=== PATIENT | female | born 1965 | race Caucasian/White ===

== ENCOUNTER → 2017-09-20 16:07 | Outpatient (REF) | payer BC, SELFPAY ==
[2017-09-20 19:59] LABS: TSH (W/Ref FT4) 0.45 uIU/mL (0.358-3.74)
== END ==
LOC: NCHCN 16:07
PROVIDERS: PCP Nurse Practitioner Family; Visit Provider Nurse Practitioner
DX: E03.9 Hypothyroidism, unspecified (principal)
CPT/HCPCS: 84443

== ENCOUNTER 2018-03-18 12:01 | Emergency (ER) | payer BC, SELFPAY ==
[2018-03-18 12:30] VITALS: PULSE 75; RESP 22; TEMP 36.2; O2SAT 100
[2018-03-18 12:48] VITALS: PULSE 64; O2SAT 100
[2018-03-18] MEDS: Lactated Ringers 1,000 ML 1000 ML IV (13:40)
[2018-03-18] MEDS: HYDROmorphone 2 MG/ML VIAL 1 MG IVP (13:47)
[2018-03-18] MEDS: Ketorolac 15 MG/ML VIAL IVP (13:47)
--- NOTE | 2018-03-18 15:42 | DI.RAD_ITS ---
SYMPTOM/DIAGNOSIS: ATRAUMATIC BACK PAIN LUMBAR SPINE: There is no evidence of fracture, spondylolysis or spondylolisthesis. The disc spaces are well maintained. There are mild degenerative changes of the discs. Facet joint degenerative changes are also seen. IMPRESSION: Mild degenerative changes. No acute abnormality.
--- NOTE | 2018-03-18 16:16 | ED.GENADUL_ITS ---
Discharge Plan Disposition Patient Disposition: HOME Condition: Improving Discharge Details Chief Complaint: Nk/Back Pain Clinical Impression: Low back pain Primary Care Provider: Carissa Tatum ED Provider: Merlin Enriquez Home Meds and New Rx's Prescriptions: New hydromorphone 2 mg tablet 2 - 4 mg PO Q4H PRN (Reason: back pain) Qty: 10 RF: 0 No Action metoprolol succinate 50 MG tablet extended release 24 hr 50 mg PO BID RF: 0 levothyroxine [Synthroid] 112 MCG tablet 112 mcg PO DAILY RF: 0 ibuprofen 600 MG tablet 600 mg PO Q6H PRN (Reason: Pain) Qty: 20 RF: 0 vitamin [id number] acid 500-400 mcg Tablet PO DAILY RF: 0 Discharge Instructions Instructions: Low Back Strain (ED) Additional Instructions: 1. Drink plenty of fluids. 2. Continue all medications as prescribed. 3. Acetaminophen 1000mg every 4 hours (up to 5 time a day) and/or ibuprofen 600mg every 6 hours as needed for fever or pain. Hydromorphone 2-4 mg every 4 hours as needed for pain not responding to above medications. 4. Activity as tolerated. Return to the Emergency Department (ED) if your condition worsens, does not improve as expected, or for ANY other concerns. Specifically, return if you have new or uncontrolled pain, worsening fever, difficulty breathing, vomiting, or are unable to drink fluids. Referrals: Carissa Tatum [Primary Care Provider] - Discharge Data Discharge Date/Time-TO BE ENTERED AT DEPARTURE: 03/18/18 16:57 Medical Decision Making 52-year-old woman with a history of hypothyroidism and pernicious anemia who presents with severe low back pain associated with a popping sensation while shoveling snow. Initially had bilateral lower extremity paresthesias at onset which have now resolved. Minimal discomfort while lying at rest with significant worsening of pain with positional change. Nonfocal exam including no significant posterior lumbar tenderness and no abdominal tenderness on multip le re-evaluations. Normal peripheral neurovacular exam with a negative straight leg raise. Plain lumbar x-ray negative. Clinically improved after receiving IV hydromorphone and IV ketorolac. Discussed likely musculoskeletal etiology of symptoms and discharged home with a plan for regular analgesia, activity as tolerated, and outpatient follow-up as needed. Given usual and customary return instructions prior to discharge. Differential Diagnosis AAA, cauda equina syndrome, retroperitoneal hemorrhage Medical Records Medical records reviewed: Yes I reviewed the patient's medical records. Imaging Data Radiologic Study: Attestation: I personally reviewed and interpreted this imaging study as follows: Imaging: X-Ray (Lumbar) My impression: No acute musculoskeletal injury or bony lesions. Term independently and contemporaneously by myself. Radiologist's impression: No acute findings. HPI General Mode of arrival: ambulatory . Date/Time Provider Initiated Documentation: 03/18/18 12:31 . Limitations to Documentation: no limitations . Information obtained by: patient and old records reviewed . HPI Narrative: 52-year-old woman with a history of hypothyroidism, pernicious anemia, and palpitations. Presents for evaluation of acute lower back pain. Ms. arriaza describes having a popping sensation while shoveling snow and having immediate pain in her lower lumbar back. Associated symptoms included bilateral lower ext remity tingling. She denies any history of previous lower back pain or recent trauma. On arrival, she is in significant discomfort noting that her pain worsens with positional change. She denies fever/chills, dyspnea, chest pain, palpitations, abdominal pain. She has had no recent change in bowel or bladder habits Related Data Home Medications Medication Instructions Recorded Confirmed levothyroxine [Synthroid] 112 mcg PO DAILY tab-cap 01/03/14 03/18/18 metoprolol succinate 50 mg PO BID 01/03/14 03/18/18 ibuprofen 600 mg PO Q6H PRN #20 tablet 05/12/17 03/18/18 hydromorphone 2 - 4 mg PO Q4H PRN #10 tab 03/18/18 vitamin [id number] acid mg PO DAILY 03/18/18 Previous Rx's Medication Instructions Recorded ibuprofen 600 mg PO Q6H PRN #20 tablet 05/12/17 hydromorphone 2 - 4 mg PO Q4H PRN #10 tab 03/18/18 Allergies Allergy/AdvReac Type Severity Reaction Status Date / Time basil AdvReac Severe gi Unverified 03/18/18 12:43 hydromorphone [From Dilaudid] AdvReac Intermediate anxiety/cri Unverified 03/18/18 13:55 es General Stated Complaint: Nk/Back Pain NANDINI: 3 Review of Systems Review of Systems All systems reviewed & are unremarkable except as noted in HPI and below Constitutional Denies chills, Denies fever(s), Denies headache(s) and Denies weakness Eyes Denies blurry vision ENT Denies headache(s), Denies sore throat and Denies throat swelling Cardiovascular Denies chest pain, Denies palpitations and Denies dyspnea Respiratory Denies dyspnea Gastrointestinal Denies abdominal pain, Denies melena, Denies hematochezia and Denies change in bowel habits Genitourinary Denies urinary frequency and Denies flank pain Musculoskeletal Reports back pain (Mid low lumbar. Pain worsened by positional change), Denies numbness and Reports tingling (Transient bilateral lower extremity, now resolved) Integumentary/Breasts Denies rash Neurologic Denies confusion, Denies headache(s), Denies focal weakness, Denies numbness, Reports tingling (Transient bilateral lower extremity, now resolved) and Denies weakness Psychiatric Denies confusion Endocrine Denies palpitations Hematologic/Lymphatic Denies easy bleeding and Denies easy bruising Allergic/Immunologic Denies throat swelling PFSH Medical History Hypothyroid Palpitations Pernicious anemia Surgical History Arthroplasty of knee section Social History Smoking/Tobacco Use Status: Former Tobacco Use Exam Narrative Exam Narrative: Nursing note and vital signs have been reviewed and noted. GENERAL: alert, active, no acute distress, well -hydrated, well-nourished HEENT: atraumatic/normocephalic, PERRLA, EOMI, conjunctiva clear, external ears/canals normal, nasal mucosa normal NECK: supple, full range of motion, no mass, normal lymphadenopathy, no thyromegaly CARDIOVASCULAR: RRR, no murmurs, nl pulses, no edema PULMONARY: nl effort, no audible wheezing or stridor, nl breath sounds with no focal deficit. no chest wall tenderness ABDOMEN: soft, non-tender, non-distended, no mass, no organomegaly EXTREMITY: No lower back tenderness (pain not reproducible) ; normal muscle tone, all joints with FROM, no deformity or tenderness NUERO: gross motor exam normal, negative SLR; PSYCH: alert and oriented, Course Vital Signs Temperature 97.2 F L 03/18/18 12:30 Pulse 75 03/18/18 12:30 Respiratory Rate 22 03/18/18 12:30 Pulse Oximetry 100 03/18/18 12:30 Temperature 97.2 F L 03/18/18 12:30 Temperature Source Temporal Artery Scan 03/18/18 12:30 Pulse 64 03/18/18 12:48 Respiratory Rate 22 03/18/18 12:30 Pulse Oximetry 100 03/18/18 12:48 Oxygen Delivery Method Room Air 03/18/18 12:48 Oxygen Flow Rate 0 03/18/18 12:48 Pain Level 6 03/18/18 13:47
--- NOTE | 2018-03-18 16:21 | DI.VRAD_ITS ---
EXAM: XR Lumbar Spine, 4 or 5 Views EXAM DATE/TIME: 03/18/2018 2:44 PM CLINICAL HISTORY: 52 years old, female; Pain; Low back pain; Patient HX: Atraumatic back pain. Shoveling TECHNIQUE: XR of the lumbar spine, 4 or 5 views. COMPARISON: No relevant prior studies available. FINDINGS: Vertebrae: Normal. No acute fracture. Normal alignment. Soft tissues: Normal. IMPRESSION: Unremarkable radiograph. Dictated and Authenticated by: Robert Mittal MD. Ordering:CRUZ Boyer MD
[2018-03-18] MEDS: HYDROmorphone 2 MG TAB PO (16:40)
[2018-03-18 16:46] VITALS: BP 116/68; PULSE 63; RESP 14; TEMP 36.6; O2SAT 100
[2018-03-18 16:48] VITALS: BP 116/68; PULSE 63; RESP 14; TEMP 36.6; O2SAT 100
== END 2018-03-18 16:57 | disposition home or self-care (01) ==
PROVIDERS: Emergency Provider Emergency Medicine; PCP Nurse Practitioner Family
DX: M54.5 Low back pain (principal)
CPT/HCPCS: 96361; 96374; 96375; 99284; 72110; J1885

== ENCOUNTER 2018-11-27 18:43 | Outpatient (REF) | payer BC, SELFPAY ==
[2018-11-27 20:32] LABS: TSH (W/Ref FT4) 3.99 uIU/mL (0.36-3.74)
[2018-11-27 21:29] LABS: FREE T4 0.95 ng/dL (0.76-1.46)
[2018-11-28 00:29] LABS: Vitamin B12 425 pg/mL (193-986)
== END 2018-11-27 19:03 ==
LOC: NCHCN 18:43
PROVIDERS: PCP Nurse Practitioner Family; Visit Provider Nurse Practitioner
DX: D51.0 Vitamin B12 deficiency anemia due to intrinsic factor deficiency (principal); E03.9 Hypothyroidism, unspecified
CPT/HCPCS: 82607; 84439; 84443

== ENCOUNTER 2019-03-04 16:30 | Outpatient (REF) | payer BC, SELFPAY ==
--- NOTE | 2019-03-04 16:10 | PAPFT_PTH ---
PATIENT: Tasneem Galeana LOC: [facility]#:[id number] AGE/SX: 53/F ROOM: RE03/04/[address]: Katie Tong : 1965 BED: DIS: 03/04/2019 SPEC #: [id number] RECD: 03/04/19 18:15 STATUS: GAYATHRI RERandall #: [id number] KEVIN: 03/04/19 16:[address]: Katie Tong DEPT: COUNT INCLUDES THE [facility] Cytology RECD BY: Rowan Laura Tissues: 1 - CX/ENDOCX FOR PAP SMEARS Procedures: PAP THIN PREP/UVM Screening HPV DNA PROBE Comments: [id number]
[2019-03-04 19:34] LABS: Vitamin D 25 Total 26.5 ng/ml (30-100)
[2019-03-04 19:35] LABS: ALT 21 U/L (14-59); AST 16 U/L (15-37); Albumin 3.8 g/dL (3.4-5.0); Alkaline Phosphatase 69 U/L (46-116); Anion Gap 5.7 mmol/L (3-11); BUN 13 mg/dL (7-18); Bilirubin, Total 0.3 mg/dL (0.2-1.0); CO2 32.3 mmol/L (21.0-32.0); CREATININE 0.75 mg/dL (0.55-1.02); Calcium 8.8 mg/dL (8.5-10.1); Chloride 106 mmol/L (98-107); Glucose 80 mg/dL (74-106); Potassium 3.5 mmol/L (3.5-5.1); Sodium 144 mmol/L (136-145); TSH (W/Ref FT4) 1.64 uIU/mL (0.36-3.74); Total Protein 7.1 g/dL (6.4-8.2); Vitamin B12 452 pg/mL (193-986)
== END 2019-03-04 16:50 ==
LOC: NCHCN 16:30
PROVIDERS: PCP Nurse Practitioner; Visit Provider Nurse Practitioner
DX: D51.0 Vitamin B12 deficiency anemia due to intrinsic factor deficiency (principal); E03.9 Hypothyroidism, unspecified; E55.9 Vitamin D deficiency, unspecified; Z00.00 Encounter for general adult medical examination without abnormal findings; Z12.4 Encounter for screening for malignant neoplasm of cervix; Z11.51 Encounter for screening for human papillomavirus (HPV)
CPT/HCPCS: 80053; 82306; 88142; 82607; 84443; 87624

== ENCOUNTER 2019-03-25 14:08 | Outpatient (CLI) | payer BC, SELFPAY ==
--- NOTE | 2019-03-25 15:44 | DI.CT_ITS ---
EXAM: CT ABDOMEN AND PELVIS W CLINICAL HISTORY: RLQ ABD PAIN, R10.31, ONE WEEK OF WORSENING RLQ TECHNIQUE: Post IV and oral contrast. COMPARISON: No exams were available for comparison FINDINGS: The heart size is normal. The lung bases are clear. The liver, spleen, gallbladder, pancreas, adren als and kidneys as well as urinary bladder appear normal. The uterus and ovaries are unremarkable. The appendix appears normal. A moderate quantity of stool. There is no small bowel dilatation or wa ll thickening. The aorta is normal in diameter. No adenopathy or ascites is seen. There is a minim al amount of fat at the umbilicus. There is no fluid or stranding in the fat. No bony abnormalities are seen. IMPRESSION: Minimal fat at the umbilicus. No acute abnormality is seen.
[2019-03-25] MEDS: Omnipaque 350 MG/ML 100 ML BTL IV (15:51)
[2019-03-25] MEDS: Breeza Beverage 473 ML BTL PO ×2 (15:51→15:52)
[2019-03-25] MEDS: Omnipaque 350 MG/ML 50 ML BTL PO (15:52)
== END 2019-03-25 14:28 ==
PROVIDERS: PCP Nurse Practitioner; Visit Provider Family Medicine
DX: R10.31 Right lower quadrant pain (principal)
CPT/HCPCS: 74177; J3490; Q9967

== ENCOUNTER 2019-04-23 00:48 | Outpatient (CLI) | payer BC, SELFPAY ==
--- NOTE | 2019-04-23 | DI.MAMMO_ITS ---
EXAM: MAMMO SCREENING CLINICAL HISTORY: SCREENING, Z12.39 TECHNIQUE: Mammograms were interpreted according to the usual protocol including computer analysis w [employer] CAD system, tomosynthesis and C-view imaging. COMPARISON: 2009 to 2016 FINDINGS: The breasts are composed of scattered fibroglandular densities, Breast Density category B. No suspicious masses or suspicious microcalcifications are seen. No skin thickening or abnormal axillary lymph nodes are seen. There has been no significant change from prior exams. IMPRESSION: BI-RADS Category 1 - Negative Breast Density - Category B - Scattered areas of fibroglandular density
== END 2019-04-23 01:08 ==
PROVIDERS: PCP Nurse Practitioner; Visit Provider Nurse Practitioner
DX: Z12.31 Encounter for screening mammogram for malignant neoplasm of breast (principal)
CPT/HCPCS: 77063; 77067

== ENCOUNTER 2019-12-09 11:18 | Outpatient (REF) | payer BC, SELFPAY ==
[2019-12-09 18:28] LABS: HCT 33.1 % (36.0-46.0); HGB 11.1 g/dL (11.2-15.7); MCH 30.7 pg (27.0-33.0); MCHC 33.5 % (32.0-36.0); MCV 91.7 fL (80-95); MPV 9.9 fL (8.0-11.0); Platelet Count 187 10^3/uL (130-400); RBC 3.61 10^6/uL (3.93-5.22); RDW 11.9 % (11.7-14.6); RDW-SD 40.5 fL; WBC 4.04 10^3/uL (4.4-10.8)
[2019-12-09 18:46] LABS: ALT 19 U/L (14-59); AST 19 U/L (15-37); Albumin 3.5 g/dL (3.4-5.0); Alkaline Phosphatase 75 U/L (46-116); Anion Gap 5.4 mmol/L (3-11); BUN 13 mg/dL (7-18); Bilirubin, Total 0.4 mg/dL (0.2-1.0); CO2 28.6 mmol/L (21.0-32.0); CREATININE 0.81 mg/dL (0.55-1.02); Chloride 104 mmol/L (98-107); Glucose 96 mg/dL (74-106); Potassium 4.7 mmol/L (3.5-5.1); Sodium 138 mmol/L (136-145); TSH (W/Ref FT4) 0.57 uIU/mL (0.36-3.74); Total Protein 6.5 g/dL (6.4-8.2)
== END 2019-12-09 11:38 ==
LOC: NCHCN 11:18
PROVIDERS: PCP Nurse Practitioner; Visit Provider Nurse Practitioner
DX: R55 Syncope and collapse (principal); D51.0 Vitamin B12 deficiency anemia due to intrinsic factor deficiency
CPT/HCPCS: 80053; 85027; 84443

== ENCOUNTER 2019-12-10 16:39 | Outpatient (REF) | payer BC, SELFPAY ==
[2019-12-10 18:24] LABS: Iron 43 ug/dL (50-170); Total Iron Binding Capacity 376 ug/dL (250-450); Transferrin Sat 11 % (15-50)
[2019-12-10 18:52] LABS: Ferritin 9 ng/mL (8-252); Vitamin B12 530 pg/mL (193-986)
== END 2019-12-10 16:59 ==
LOC: NCHCN 16:39
PROVIDERS: PCP Nurse Practitioner; Visit Provider Nurse Practitioner
DX: D51.0 Vitamin B12 deficiency anemia due to intrinsic factor deficiency (principal)
CPT/HCPCS: 82607; 82728; 83540; 83550

== ENCOUNTER 2019-12-12 01:02 | Outpatient (CLI) | payer BC, SELFPAY ==
--- NOTE | 2019-12-12 09:00 | ETT_ITS ---
APPROVED REPORT Exam: Exercise Treadmill Patient Location: Out-Patient Room/Bed: Stress Nurse: Maliha Lima RN BMI: 23.77 Baseline Rhythm: Sinus Rhythm Indications: Lightheaded near fainting spells with strenuous activity. Patient also feeling more fa tigued and SOB with increased activity. Medical History Medical History: Palpitations Cardiac Medications: Metoprolol tartrate Allergies: NKDA Cardiac Risk Factors: FHX of CAD Previous Cardiac Procedures: None Pretest Chest Pain Characteristics: No chest pain Exercise History: Physically active Physical Disabilities: None. Lung Sounds: Clear to auscultation Heart Sounds: Irregular Stress Test Details Test: Exercise stress testing was performed using a Rusty protocol. Rest Stress HR Resting HR Supine: 61 bpm Max Heart Rate (APMHR): 164 bpm Resting HR Standin bpm Target HR (85% APMHR): 139 bpm Max HR Achieved: 167 bpm % of APMHR: 101 Recovery HR: 87 bpm HR response to stress: Normal HR response to stress BP Resting BP Supine: 118/80 mmHg Resting BP Standin/72 mmHg Max BP: 140/92 mmHg Recovery BP: 110/76 mmHg BP response to stress: Normal blood pressure response to stress. ECG Resting ECG: Sinus Rhythm Ectopy: None. Stress ECG: Sinus Tachycardia ST Change: Upsloping ST depression Lead(s): II, III, aVF, V3, V4, V5, V6 Maximum ST Deviation: 1 mm Arrhythmia: None Recovery ECG: Sinus Rhythm Recovery ST Change: Horizontal ST depression, returning to baseline by 5 minute recovery Lead(s): II, III, aVF, V3, V4, V5, V6 Recovery ST Deviation: 1 mm Recovery Arrhythmia: None Clinical Reason for Termination: Fatigue, Dyspnea Stress Symptoms: Dizziness, increasing with immediate cessation of exercise and resolving with rest Exercise duration: 9 min51 sec Highest Stage Reached: Stage 4: 4.2 mph at 16% grade. Exercise capacity: 11.57 METs Stress ECG Conclusion 1. Resting electrocardiogram was normal 2. Patient exercised on the Rusty protocol and completed a workload of 11.57 METS 3. Normal heart rate and blood pressure response to exercise. The patient achieved 100% of predicted heart rate for age 4. Patient described lightheadedness at end exercise relieved with rest 5. Electrocardiographically there was J-point depression and upsloping ST segments at peak exercise, equivocal for myocardial ischemia 6. There were no dysrhythmia 7. Suggest repeat with imaging if there is strong clinical suspicion of underlying coronary artery di sease 8. Ornelas treadmill score is 7,low risk Stress Test Summary STAGE Time (mins) Speed (mph) Grade (%) HR BP SYMPTOMS METS Supine 61 118/80 Standing 76 98/72 1 3 1.7 10 122 130/82 4.6 2 6 2.5 12 135 130/80 7 3 9 3.4 14 156 lightheaded 10.2 1 min recovery 130 140/92 increased lightheadedness 3 min recovery 91 122/82 symtoms resolved 6 min recovery 87 110/76
== END 2019-12-12 01:22 ==
PROVIDERS: PCP Nurse Practitioner; Visit Provider Nurse Practitioner
DX: R42 Dizziness and giddiness (principal); R06.02 Shortness of breath; R53.83 Other fatigue; Z82.49 Family history of ischemic heart disease and other diseases of the circulatory system
CPT/HCPCS: 93017

== ENCOUNTER 2020-01-21 00:36 | Outpatient (CLI) | payer BC, SELFPAY ==
--- NOTE | 2020-01-21 07:45 | DI.NM_ITS ---
APPROVED REPORT Exam: Exercise Treadmill Patient Location: Out-Patient Room/Bed: Stress Nurse: Maliha Lima RN BMI: 24.68 Baseline Rhythm: Sinus Rhythm Indications: Syncope. Medical History Medical History: Pernicious anemia, Palpitations. Cardiac Medications: Metoprolol succinate, Aspirin, Atorvastatin. Allergies: Hydromorphone. Cardiac Risk Factors: FHX of CAD Previous Cardiac Procedures: None. Pretest Chest Pain Characteristics: None. Exercise History: Physically active Physical Disabilities: None. Lung Sounds: Clear to auscultation Heart Sounds: Regular Stress Test Details Test: Exercise stress testing was performed using a Rusty protocol. Nuclear Acquisition: Rest Tc-99m/Stress Tc-99m 1 day Rest Isotope: Tc-99m Sestamibi. Dose: 10.9 Date: 01/21/2020 Injection Time: 1045 Stress Isotope: Tc-99m Sestamibi. Dose: 31.5 Date: 01/21/2020 Injection Time: 1220 HR Resting HR Supine: 62 bpm Max Heart Rate (APMHR): 164 bpm Resting HR Standin bpm Target HR (85% APMHR): 139 bpm Max HR Achieved: 171 bpm % of APMHR: 104 Recovery HR: 89 bpm HR response to stress: Normal HR response to stress BP Resting BP Supine: 126/78 mmHg Resting BP Standin/80 mmHg Max BP: 160/80 mmHg Recovery BP: 126/80 mmHg BP response to stress: Normal blood pressure response to stress. ECG Resting ECG: Sinus Rhythm Ectopy: None. Stress ECG: Sinus Tachycardia ST Change: Upsloping ST depression Lead(s): II, III, aVF, V3, V4, V5 Maximum ST Deviation: 1 mm Arrhythmia: None Recovery ECG: Sinus Rhythm Recovery ST Change: Upsloping ST depression Lead(s): II, III, aVF, V3, V4, V5 Recovery ST Deviation: 1 mm Recovery Arrhythmia: None Clinical Reason for Termination: Fatigue Stress Symptoms: General Fatigue Exercise duration: 10 min33 sec Highest Stage Reached: Stage 4: 4.2 mph at 16% grade. Exercise capacity: 12.7 METs Stress ECG Conclusion 1. Patient exercised for a total of 10 minutes and 30 seconds (13 METS). The patient no symptoms sug gestive of ischemia. 2. Patient had no significant ST changes concerning for ischemia. Stress Test Summary STAGE Time (mins) Speed (mph) Grade (%) HR BP SYMPTOMS METS Supine 62 126/78 Standing 76 122/80 1 3 1.7 10 121 130/74 4.6 2 6 2.5 12 138 142/76 7 3 9 3.4 14 156 154/76 10.2 1 min recovery 135 160/80 3 min recovery 96 148/76 6 min recovery 89 126/80 MPI Conclusion The patient's ejection fraction was 61% with stress. There were no wall motion abnormalities. The patient no evidence of ischemia on the imaging portion exam. This represents a normal SPECT stress test. Radiologist Interpretation Radiologist agrees with Software Licensing Analyst's Interpretation. Radiologist Interpretation by: Marquis Jaimes MD Interpretation Date/Time: 01/21/2020 14:09:14
== END 2020-01-21 00:56 ==
PROVIDERS: PCP Nurse Practitioner; Visit Provider Internal Medicine Cardiovascular Disease
DX: R55 Syncope and collapse (principal); Z82.49 Family history of ischemic heart disease and other diseases of the circulatory system
CPT/HCPCS: 78452; 93017

== ENCOUNTER 2020-01-21 04:42 | Outpatient (CLI) | payer BC, SELFPAY ==
--- NOTE | 2020-01-26 20:00 | RESPIRATORY ---
01/26/201999- Dr Chapa was paged and report given for Cardiac Event triggered by Pt . Which showed Sinus Rhythm, 2nd Degree AVB Type 2. Pt symptom reported on monitor Flutter,, skipped beat;Light headedness.
--- NOTE | 2020-02-27 10:31 | W.CARDEVENT ---
Date of service: 02/27/20 Time of Service: 10:31 Cardiac Event Recorder Referring Provider:: sena Indications:: syncope Cardiac Event Note: This was a 30-day event monitor. Predominant rhythm was sinus. Average heart rate was 77. Minimum heart rate was 57 and maximum 111. There was a period of 2-1 AV block, heart rate 40 associated with lightheadedness at 4:50 PM on day 4
== END 2020-01-21 05:02 ==
PROVIDERS: PCP Nurse Practitioner; Visit Provider Internal Medicine Cardiovascular Disease
CPT/HCPCS: 93270

== ENCOUNTER 2020-01-26 21:07 | Emergency (ER) | payer BC, SELFPAY ==
[2020-01-26] VITALS (7 sets, daily range): BP systolic 108–143; BP diastolic 65–79; PULSE 68–78; RESP 15–19; TEMP 36.4; O2SAT 97–100
--- NOTE | 2020-01-26 21:00 | RT.EKG_ITS ---
APPROVED REPORT Exam: Resting ECG Patient Location: E HR:69 bpm ECG Measurements Heart Rate 69 AXIS WY 136 P 59 QRSd 90 QRS 20 QT 408 T 24 QTc 438 Conclusion Sinus rhythm...normal P axis, V-rate 60- 99 Nonspecific repolarization abnormalities...ST dep, T neg, 2-3 leads
--- NOTE | 2020-01-26 21:38 | ED.GENADUL_ITS ---
Discharge Plan Disposition Patient Disposition: [facility] Condition: Serious Discharge Details Chief Complaint: Chest Pain Clinical Impression: Mobitz type 2 second degree heart block Primary Care Provider: Katie Tong ED Provider: Clayton Sanders Home Meds and New Rx's Prescriptions: No Action metoprolol succinate 50 MG tablet extended release 24 hr 50 mg PO BID RF: 0 levothyroxine [Synthroid] 112 MCG tablet 112 mcg PO DAILY RF: 0 aspirin [Adult Aspirin Regimen] 81 mg tablet,delayed release (DR/EC) 81 mg PO DAILY RF: 0 atorvastatin 10 mg tablet 10 mg PO DAILY RF: 0 cyanocobalamin (vitamin B-12) 1,000 mcg/mL kit 100 mcg subcut QMONTH RF: 0 ibuprofen 600 MG tablet 600 mg PO Q6H PRN (Reason: Pain) Qty: 20 RF: 0 vitamin G20-ivlou acid 500-400 mcg Tablet PO DAILY RF: 0 Medical Decision Making 54-year-old female presents today after receiving a phone call that she had a equipment monitor phototypesetting event on Monday. She reports that she is currently anxious because of that but otherwise asymptomatic. Clinically she appears well, nontoxic, is hemodynamically stable. Will obtain EKG now, fax her recent stress test and cardiac event monitoring to [facility] and request consultation with cardiology. It appears as though she had a second-degree A-V type II block recorded on 01-24-2020 at 4:50 PM. She was symptomatic at that time. Her stress MACHINE ATTENDANT MPI rest and stress test gpr performed on 01-21-20 reveals the patient has no symptoms suggest of ischemia. Patient has no significant ST changes concerning for ischemia. The patient's ejection fraction was 61% with stress. There were no wall abnormalities. Patient had no evidence of ischemia on the imaging portion of the exam. Normal test I was able to speak with cardiology at [facility], Dr. King. We discussed the patient's EKG tonight, recent stress test and cardiac event monitoring. She is currently asymptomatic. He believes transferring to his facility into the care of Dr. Shaikh is appropriate. Plan is to place a pacemaker. He does not request any laboratory values or imaging be obtained here, they will complete their work-up when she arrives at their facility. Plan discussed with patient, she is comfortable this plan and has no additional questions or concerns Medical Records Medical records reviewed: Yes I reviewed the patient's medical records. ECG Data Attestation: I personally reviewed and interpreted this ECG (s) as follows: Interpretation: Please see official report by Dr. Mark. Sinus rhythm, normal axis. Ventricular rate of 69. Nonspecific repolarization abnormalities. No acute ST elevation. HPI General Mode of arrival: ambulatory . Date/Time Provider Initiated Documentation: 01/26/20 21:08 . Limitations to Documentation: no limitations . Information obtained by: patient . HPI Narrative: This is a 54-year-old female, past medical history of hypothyroidism, palpitations, pernicious anemia, presenting to the ER per her primary care office. She states that she received a phone call just prior to arrival stating that her equipment monitor phototypesetting was abnormal and to get admitted to our facility. Patient states that she has been on metoprolol for PVCs for nearly 15 years, no change in that medication. She reports that her thyroid disease is well maintained and she had her blood drawn recently, levels were normal. She has been feeling a Kerplunk in her chest followed by feeling lightheaded like she might pass out for 5-6 months. She would say this is probably happened nearly a dozen times. Subsequently she been seen by cardiology, had a work-up, including stress test last week and a 30-day equipment monitor phototypesetting. She was told that the event happened on Monday, she is aware that she was symptomatic when the event supposedly happened on her equipment monitor phototypesetting. She states that she feels slightly anxious having received a phone call for her to come directly to the ER but is otherwise asymptomatic. Denies recent illness or trauma. Denies headache, fever, chest pain, shortness of breath recent travel Related Data Home Medications Medication Instructions Recorded Confirmed levothyroxine [Synthroid] 112 mcg PO DAILY tab-cap 01/03/14 01/08/20 metoprolol succinate 50 mg PO BID 01/03/14 01/08/20 ibuprofen 600 mg PO Q6H PRN #20 tab 05/12/17 01/08/20 vitamin Y41-vauze acid mg PO DAILY 03/18/18 01/08/20 aspirin 81 mg tablet,delayed 81 mg PO DAILY 12/26/19 01/08/20 release atorvastatin 10 mg tablet 10 mg PO DAILY 12/26/19 01/08/20 cyanocobalamin (vitamin B-12) 100 mcg SUBCUT QMONTH 12/26/19 01/08/20 1,000 mcg/mL injection kit Previous Rx's Medication Instructions Recorded ibuprofen 600 mg PO Q6H PRN #20 tab 05/12/17 Allergies Allergy/AdvReac Type Severity Reaction Status Date / Time basil AdvReac Severe Nausea Unverified 01/26/20 21:18 hydromorphone [From Dilaudid] AdvReac Intermediate anxiety/cri Unverified 01/26/20 21:18 es General Stated Complaint: Chest Pain NANDINI: 2 Review of Systems Constitutional Constitutional: Denies fatigue, Denies fever(s), Denies headache(s) and Denies weakness Eyes Eyes: Denies change in vision ENT Ears, Nose, Mouth, and Throat: Denies headache(s) and Denies neck pain Cardiovascular Cardiovascular: Denies chest pain, Reports irregular heart rhythm and Denies dyspnea Respiratory Respiratory: Denies cough and Denies dyspnea Gastrointestinal Gastrointestinal: Denies abdominal pain, Denies nausea and Denies vomiting Musculoskeletal Musculoskeletal: Denies neck pain, Denies numbness and Denies tingling Integumentary/Breasts Skin/Breast: Denies rash Neurologic Neurologic: Denies headache(s), Denies numbness, Denies tingling and Denies weakness Psychiatric Psychiatric: Reports anxiety Endocrine Endocrine: Denies fatigue [facility] Medical History Hypothyroid Palpitations Normal ECHO 2004 Pernicious anemia Syncope Surgical History Arthroplasty of knee right, at [facility] 2012? section 1988 and 1991 Social History Smoking/Tobacco Use Status: Former Tobacco Use Smoking risk assessment performed?: Yes Alcohol Intake: current Alcohol Intake frequency: a few times a month Drug use: Never Substance use type: does not use Do you feel safe at home: Yes Do you feel safe in your relationship?: Yes Exam Const General: cooperative, healthy appearing, comfortable and no acute distress Orientation: alert, awake and oriented x3 HENMT Head: normal to inspection, normocephalic and atraumatic Eyes General: appearance normal, both eyes and all related structures Conjunctivae: conjunctivae normal Sclera: sclerae normal Neck Neck: normal visual inspection, full ROM, trachea midline and supple Resp Effort & Inspection: normal respiratory effort and able to speak in complete sentences Auscultation: clear to auscultation bilaterally Cardio Rate: regular rate Rhythm: regular rhythm GI Palpation: soft and nontender Back/Spine/Pelvis Back: No back tenderness Skin General skin exam: no rashes or lesions noted Neuro General: patient alert, patient awake, patient oriented x3, moves all extremities and no focal motor deficits Cognition: normal cognition Speech: speech normal Gait: normal gait Motor: muscle tone normal throughout Sensory Exam: no sensory deficits noted Extrem General: normal to inspection, full ROM, capillary refill normal, no pedal edema and no calf tenderness Psych Appearance: grossly normal Mental Status: mental status grossly normal Course Vital Signs Vital signs: Vital Signs Temperature 36.4 C L 01/26/20 21:10 Pulse 72 01/26/20 21:10 Respiratory Rate 16 01/26/20 21:10 Blood Pressure 143/79 H 01/26/20 21:10 Pulse Oximetry 99 01/26/20 21:10 Temperature 36.4 C L 01/26/20 21:10 Temperature Source Skin 01/26/20 21:10 Pulse 72 01/26/20 21:10 Respiratory Rate 16 01/26/20 21:10 Respiratory Effort Non-Labored 01/26/20 21:10 Respiratory Depth Normal 01/26/20 21:10 Respiratory Pattern Normal 01/26/20 21:10 Blood Pressure 143/79 H 01/26/20 21:10 Blood Pressure Position Supine 01/26/20 21:10 Pulse Oximetry 99 01/26/20 21:10 Oxygen Delivery Method Room Air 01/26/20 21:10 Oxygen Flow Rate 0 01/26/20 21:10 Pain Level 0 01/26/20 21:10
== END 2020-01-26 23:30 | disposition short-term general hospital (02) ==
PROVIDERS: Emergency Provider Physician Assistant; PCP Nurse Practitioner
DX: I44.1 Atrioventricular block, second degree (principal)
CPT/HCPCS: 93005; 99285; 93010

== ENCOUNTER 2020-06-17 08:33 | Outpatient (CLI) | payer BC, SELFPAY ==
--- NOTE | 2020-06-17 08:30 | RT.EKG_ITS ---
APPROVED REPORT Exam: Resting ECG Reason for Exam: Palpitations Patient Location: O HR:65 bpm ECG Measurements Heart Rate 65 AXIS NV 127 P 45 QRSd 87 QRS 3 QT 404 T 6 QTc 421 Conclusion Sinus rhythm...normal P axis, V-rate 50- 99
== END 2020-06-17 08:34 | disposition home or self-care (01) ==
LOC: DI.CARD 08:36
PROVIDERS: PCP Nurse Practitioner; Visit Provider Internal Medicine Cardiovascular Disease
DX: I44.1 Atrioventricular block, second degree (principal)
CPT/HCPCS: 93010

== ENCOUNTER 2021-01-27 10:47 | Outpatient (CLI) | payer BC, SELFPAY ==
--- NOTE | 2021-01-27 11:33 | DI.RAD_ITS ---
Exam(s) XR LUMBAR SPINE COMPLETE EXAM: XR LUMBAR SPINE COMPLETE CLINICAL HISTORY: BACK PAIN LOW, M54.50, HEARD POP AFTER LIFTING WHILE MAKING BED, NUMBNESS. TECHNIQUE: 2D digital imaging was performed. COMPARISON: CR XR lumbar spine complete from 03/18/2018 FINDINGS: There is no evidence of fracture or listhesis. No pars defects. No significant disc space narrowing . Some degenerative changes noted in the facet joints of lower 2 levels. Sacroiliac joints appear u nremarkable. IMPRESSION: No fracture. No significant radiographic change compared to March 2018. DATA REPOSITORY: RADIATION DOSE DELIVERED:
== END 2021-01-27 11:07 ==
PROVIDERS: PCP Nurse Practitioner; Visit Provider Physician Assistant Medical
DX: M54.59 Other low back pain (principal); R20.0 Anesthesia of skin
CPT/HCPCS: 72110

== ENCOUNTER 2021-04-12 13:21 | Outpatient (REF) | payer BC, SELFPAY ==
[2021-04-12 17:16] LABS: HGB 11.7 g/dL (11.2-15.7); MCH 28.7 pg (27.0-33.0); MCHC 32.5 % (32.0-36.0); MCV 88.5 fL (80-95); MPV 9.8 fL (8.0-11.0); Platelet Count 186 10^3/uL (130-400); RBC 4.07 10^6/uL (3.93-5.22); RDW 13.1 % (11.7-14.6); RDW-SD 42.1 fL; WBC 4.67 10^3/uL (4.4-10.8)
[2021-04-12 18:12] LABS: Anion Gap 6.7 mmol/L (3-11); BUN 14 mg/dL (7-18); CO2 27.3 mmol/L (21.0-32.0); CREATININE 0.8 mg/dL (0.55-1.02); Calcium 8.7 mg/dL (8.5-10.1); Chloride 104 mmol/L (98-107); Glucose 92 mg/dL (74-106); Potassium 4.6 mmol/L (3.5-5.1); Sodium 138 mmol/L (136-145); TSH (W/Ref FT4) 0.04 uIU/mL (0.36-3.74); Vitamin B12 426 pg/mL (193-986)
[2021-04-12 18:35] LABS: FREE T4 1.35 ng/dL (0.76-1.46)
== END 2021-04-12 13:22 | disposition home or self-care (01) ==
LOC: NCHCN 13:21
PROVIDERS: PCP Nurse Practitioner; Visit Provider Nurse Practitioner Family
DX: D51.0 Vitamin B12 deficiency anemia due to intrinsic factor deficiency (principal)
CPT/HCPCS: 80048; 85027; 82607; 84439; 84443

== ENCOUNTER 2021-04-14 00:51 | Outpatient (CLI) | payer BC, SELFPAY ==
--- NOTE | 2021-04-14 15:30 | DI.RAD_ITS ---
Exam(s) XR FOOT LT COMPLETE EXAM: XR FOOT LT COMPLETE CLINICAL HISTORY: PAIN IN LT FOOT, M79.672 TECHNIQUE: COMPARISON: No exams were available for comparison FINDINGS: Three views were obtained. Bony alignment appears within normal limits. There are degenerative ordonez ges at the 1st MTP joint with prominent marginal osteophytes and subchondral sclerosis as well as remington e narrowing of the cartilaginous joint space. Mild bethea articular degenerative changes seen in the re mainder of the foot. 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 RADIATION DOSE DELIVERED: Total DLP
--- NOTE | 2021-04-14 16:00 | DI.MAMMO_ITS ---
Exam(s) MAMMO SCREENING EXAM: MAMMO SCREENING CLINICAL HISTORY: SCREENING, Z12.39 TECHNIQUE: Mammograms were interpreted according to the usual protocol including computer analysis w [facility] CAD system, tomosynthesis and C-view imaging. COMPARISON: FINDINGS: The breasts are heterogeneously dense. No dominant mass or clumped microcalcification is identified in either breast. The current examination is compared with previous examinations including April and there has been no gross interval change appearance comparison previous studies. IMPRESSION: No specific evidence of malignancy at this time. Routine screening examinations are suggested at yea rly intervals in this age group according to the ACS ACR guidelines. BI-RADS Category 1 - Negative Breast Density - Category C - Heterogeneously dense
== END 2021-04-14 01:11 ==
PROVIDERS: PCP Nurse Practitioner; Visit Provider Nurse Practitioner Family
DX: Z12.31 Encounter for screening mammogram for malignant neoplasm of breast (principal); R92.8 Other abnormal and inconclusive findings on diagnostic imaging of breast; M79.672 Pain in left foot; M19.072 Primary osteoarthritis, left ankle and foot
CPT/HCPCS: 77063; 77067; 73630

== ENCOUNTER 2021-05-05 10:41 | Outpatient (CLI) | payer BC, SELFPAY ==
[2021-05-05 11:42] LABS: Source Nasal/Nares
[2021-05-05 14:25] LABS: COVID-19 PCR Negative (Negative)
== END 2021-05-05 10:42 | disposition home or self-care (01) ==
PROVIDERS: PCP Nurse Practitioner; Visit Provider Podiatrist
DX: Z20.822 Contact with and (suspected) exposure to COVID-19 (principal)
CPT/HCPCS: 87635

== ENCOUNTER 2021-05-07 07:28 | Day surgery (SDC) | payer BC, SELFPAY ==
--- NOTE | 2021-05-06 19:47 | HPE_ITS ---
Date of service: 05/06/21 Time of Service: 19:48 History of Present Illness History of Present Illness Chief Complaint: painful left bunion deformity Narrative: 55 YO female with progressive pain associated with moderate to severe hallux limitus of the left 1st MPJ. Pain is interfering with shoe gear, ambulation and daily activities. Non operative measures have failed to provide relief of symptoms. PFSH All Active Problems Syncope (Chronic) AV block, 2nd degree (Acute) Lightheadedness (Acute) Medical History Hypothyroid Pernicious anemia Syncope Surgical History Arthroplasty of knee right, at [facility] 2012? section 1988 and 1991 History of carpal tunnel surgery History of surgical removal of ganglion cyst Social History Smoking/Tobacco Use Status: Former Tobacco Use Quit Date: 02/13/83 Smoking risk assessment performed?: Yes Alcohol Intake: current Alcohol Intake frequency: a few times a week Drug use: Never Substance use type: does not use Do you feel safe at home: Yes Do you feel safe in your relationship?: Yes Meds Allergies and Home Medications Allergies Allergy/AdvReac Type Severity Reaction Status Date / Time basil AdvReac Severe Nausea Verified 05/06/21 12:18 hydromorphone [From Dilaudid] AdvReac Intermediate anxiety/cri Verified 05/06/21 12:18 es Home Medications Medication Instructions Recorded Confirmed Type levothyroxine 112 mcg tablet 112 mcg PO DAILY tab-cap 01/03/14 05/06/21 History (Synthroid) ibuprofen 600 mg tablet 600 mg PO Q6H PRN #20 tab 05/12/17 05/06/21 Rx cyanocobalamin (vitamin B-12) 100 mcg SUBCUT QMONTH 12/26/19 05/06/21 History 1,000 mcg/mL injection kit metoprolol succinate 50 mg 25 mg PO BID tab 06/17/20 05/06/21 History tablet,extended release 24 hr cholecalciferol (vitamin D3) 25 1,000 mcg PO DAILY 05/06/21 05/06/21 History mcg (1,000 unit) tablet (Vitamin D3) Exam Narrative Exam Narrative: Heaqs normo cephalic eyes PERRLA Uvula is mid line. Jaw extension is tight Hearing is adequate Heart had RRR, I detected no abnormal sounds Lung elkins are clear Abdomen is soft, BS x 4 Vascular exam: pulses are 2/4 bilaterally, cft < 3 sec to all toes. No edema, calves are soft to palpation. M/S Exam: Muslce groups are 5/5 Skeletal exam is remarkable for marked limitation in doriflexion of the 1st MPJ, left foot, with blayne articular tenderness noted on palpation. Blayne articular spurring is palpable. Neurological exam WNL
--- NOTE | 2021-05-07 06:14 | W.ANESPRE ---
General Info Date of Service Date Performed: 05/07/21 Height: 5 ft 2 in Weight: 67.585 kg Body Mass Index (BMI): 27.2 Surgical Procedure: Operation Date: 05/07/21 08:40 Proposed Procedure Side Surgeon p Cheilectomy Lt First MPJ Left Raheel Zarate DPM Meds Allergies and Home Medications Allergies Allergy/AdvReac Type Severity Reaction Status Date / Time basil AdvReac Severe Diarrhea Verified 05/07/21 08:03 hydromorphone [From Dilaudid] AdvReac Intermediate anxiety/cri Verified 05/07/21 07:48 es Home Medication Medication Instructions Recorded levothyroxine 112 mcg tablet 112 mcg PO DAILY tab-cap 01/03/14 (Synthroid) ibuprofen 600 mg tablet 600 mg PO Q6H PRN #20 tab 05/12/17 cyanocobalamin (vitamin B-12) 100 mcg SUBCUT QMONTH 12/26/19 1,000 mcg/mL injection kit metoprolol succinate 50 mg 25 mg PO BID tab 06/17/20 tablet,extended release 24 hr cholecalciferol (vitamin D3) 25 1,000 mcg PO DAILY 05/06/21 mcg (1,000 unit) tablet (Vitamin D3) Current Visit Medications: Current Medications Generic Name Dose Route Start Last Admin Trade Name Freq PRN Reason Stop Dose Admin Sodium Chloride 500 mls @ 0 mls/hr 05/07/21 06:00 Saline 500ml Bag IV PRN PRN As Directed Cefazolin Sodium/Dextrose 1 gm in 50 mls @ 100 mls/hr 05/07/21 06:00 Ancef Duplex IVPB PREOP MARLENA Ringer's Solution 1,000 mls @ 80 mls/hr 05/07/21 06:00 IV 06/05/21 23:59 INFUSION MARLENA IV Miscellaneous Supplies 1 each 05/07/21 06:00 Iv Access IV DIRECTED MARLENA IV Miscellaneous Supplies 1 each 05/07/21 06:00 Iv Access IV 06/05/21 23:59 DIRECTED MARLENA Povidone Iodine 0 ml 05/07/21 06:00 Povidone-Iodine Soln. 118 Ml Btl TP DIRECTED MARLENA Sodium Chloride 0 ml 05/07/21 06:00 Normal Saline Flush 10 Ml Syr IVP PRN PRN Sodium Chloride 0 ml 05/07/21 06:00 Normal Saline Flush 10 Ml Syr IV 06/05/21 23:59 PRN PRN Sodium Chloride 0 ml 05/07/21 06:00 Normal Saline 10 Ml Vial IJ 06/05/21 23:59 DIRECTED PRN Sterile Water 0 ml 05/07/21 06:00 Water,Injection,Sterile 10 Ml Vial IJ 06/05/21 23:59 DIRECTED PRN PFSH Active Problems Active Problems: Problem Status Onset Code Syncope R55 AV block, 2nd degree I44.1 Lightheadedness R42 Medical History Medical History Hypothyroid Pernicious anemia Syncope Surgical History Surgical History Arthroplasty of knee right, at [facility] 2012? section 1988 and 1991 History of carpal tunnel surgery History of surgical removal of ganglion cyst Tobacco Smoking/Tobacco Use Status: Former Tobacco Use Alcohol Alcohol Intake: current Alcohol intake frequency: a few times a week Substance Use Substance use: Never Substance use type: does not use Vital Signs and Lab Results Vital Signs Most Recent Vital Signs in EMR: Temp Pulse Resp BP Pulse Ox 36.4 C L 69 16 107/71 98 05/07/21 07:42 05/07/21 07:42 05/07/21 07:42 05/07/21 07:42 05/07/21 07:42 Lab Results Blood Type / Crossmatch: No Data to Display Complete Blood Count: White Blood Count 4.67 10^3/uL (4.4-10.8) 04/12/21 09:30 04/12/21 Red Blood Count 4.07 10^6/uL (3.93-5.22) 04/12/21 09:30 04/12/21 Hemoglobin 11.7 g/dL (11.2-15.7) 04/12/21 09:30 04/12/21 Hematocrit 36.0 % (36.0-46.0) 04/12/21 09:30 04/12/21 Platelet Count 186 10^3/uL (130-400) 04/12/21 09:30 04/12/21 Complete Metabolic Panel: Sodium Level 138 mmol/L (136-145) 04/12/21 09:30 04/12/21 Potassium Level 4.6 mmol/L (3.5-5.1) 04/12/21 09:30 04/12/21 Chloride Level 104 mmol/L (98-107) 04/12/21 09:30 04/12/21 Carbon Dioxide Level 27.3 mmol/L (21.0-32.0) 04/12/21 09:30 04/12/21 Blood Urea Nitrogen 14 mg/dL (7-18) 04/12/21 09:30 04/12/21 Creatinine 0.8 mg/dL (0.55-1.02) 04/12/21 09:30 04/12/21 Estimated GFR/1.73 m2 >= 60.00 (mL/min/1.73m2) 04/12/21 09:30 04/12/21 Calcium Level 8.7 mg/dL (8.5-10.1) 04/12/21 09:30 04/12/21 Glucose Level 92 mg/dL (74-106) 04/12/21 09:30 04/12/21 Liver Function Panel: No Data to Display Coagulation Panel: No Data to Display Cardiac Panel: No Data to Display Arterial Blood Gas: No Data to Display Venous Blood Gas: No Data to Display Pancreas Panel: No Data to Display Thyroid Panel: Thyroid Stimulating Hormone (TSH) 0.04 uIU/mL (0.36-3.74) L 04/12/21 09:30 04/12/21 Infectious Disease: Coronavirus (COVID-19)(PCR) Negative (Negative) 05/05/21 10:55 05/05/21 Coronavirus 2019 Source Nasal/Nares 05/05/21 10:55 05/05/21 Blood Cultures: No Data to Display Toxicology Panel: No Data to Display Imaging and Studies Imaging and Studies Study information below may be from another EMR and interpreted by another provider. Please see original notes in EMR for more complete details. EKG Summary: 07/03: sinus. Stress Test Summary: 01/2020: 13 METS, no EKG changes concerning for ischemia. LVEF 61%, no WMA, no ischemia on imaging. normal stress test. Anesthesia Assessment and Plan Anesthesia History Personal History: Delayed Emergence Family History: No Family History of Anesthesia Complications Exercise Tolerance Exercise Tolerance: Metabolic Equivalents>4 Pertinent Negatives Pertinent Negatives: No Symptoms of GERD, No Major Cardiovascular Symptoms or Complaints, No Major Pulmonary Symptoms or Complaints and No History of CVA/TIA Cardiac & Pulmonary Exam Cardiac Exam: Normal S1/S2 Heart Sounds Pulmonary Exam: Clear Bilateral Breath Sounds Implantable Cardiac Device Does patient have a Pacemaker or an ICD?: No Airway Exam Known Difficult Airway: No Mallampati Class: 1 Mouth Opening: Normal (> 3cm) Thyromental Distance: Greater than 3 cm Neck Range of Motion: Full ROM Neck Circumference: Normal Teeth Condition: Normal Dentition ASA Classification ASA Score: ASA 2 Emergency Case?: No NPO Status NPO Status: NPO Clears >2 hours, Solids >8 hours Anesthesia Plan Resuscitation Status: Full Code Anesthesia Technique: General Anesthesia Airway Planned: Natural Airway Monitors Used: Standard Monitors Preoperative Comments:: 55 yo female for repair left bunion. Sig PMHx: palpitations (metoprolol) and a 2nd degree AVB (30 day with brief 2-1 AVB), hypothyroid (levothyroxine), former smoker, occ EtOH.
[2021-05-07 07:42] VITALS: BP 107/71; PULSE 69; RESP 16; TEMP 36.4; O2SAT 98
[2021-05-07] MEDS: Lactated Ringers 1,000 ML 80 ML IV (08:02)
[2021-05-07 08:25] VITALS: BMI 27.2
[2021-05-07] MEDS: ceFAZolin 1 GM/50 ML BAG IVPB (08:41)
[2021-05-07] MEDS: Bupivacaine 0.5% Pres-Free 30 ML VIAL (09:08)
[2021-05-07] MEDS: Lidocaine 1% Multi-Dose 50 ML VIAL (09:08)
[2021-05-07] MEDS: Dexamethasone 4 MG/ML VIAL (09:31)
--- NOTE | 2021-05-07 09:51 | W.PM.DSUDISC ---
Discharge Plan Disposition Patient Disposition: HOME Condition: Good Discharge Details Reason For Visit: Correction left hallux limitus deformity Attending Provider: Raheel Zarate Primary Care Provider: Katie Tong Home Meds and New Rx's Prescriptions: New hydrocodone-acetaminophen 5-325 mg tablet 1 tab PO Q6H PRN (Reason: pain) Qty: 7 0RF Continued levothyroxine [Synthroid] 112 MCG tablet 112 mcg PO DAILY 0RF cyanocobalamin (vitamin B-12) 1,000 mcg/mL kit 100 mcg subcut QMONTH 0RF metoprolol succinate 50 mg tablet extended release 24 hr 25 mg PO BID 0RF ibuprofen 600 MG tablet 600 mg PO Q6H PRN (Reason: Pain) Qty: 20 0RF cholecalciferol (vitamin D3) [Vitamin D3] 25 mcg (1,000 unit) Tablet 1,000 mcg PO DAILY 0RF Discharge Instructions Stand Alone Forms: Anesthesia Discharge Inst., Elliot'kelvin Instructions-[facility]U, Carlos Manuel Ayala (DSU) Activity:: Elevate Remove Dressings/Wound Care:: Do Not Remove Shower/Bathe:: Cover Diet:: Normal Diet Discharge Orders Discharge Orders: Discharge Order (Routine); Ordered 05/07/21 Ordered By: Raheel Zarate
--- NOTE | 2021-05-07 09:54 | ROE_ITS ---
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 Pain is interfering with shoe gear, daily activities and has not responded to nonoperative treatments. She is opting for surgical intervention. She understands risk and complications of surgery pertaining to pain, scarring, infection, nerve damage, persistent stiffness of the joint with pain potentially requiring further surgical intervention. All questions have been answered in detail. Informed consents been obtained. No promises were made to final outcome of surgery. Findings: Small areas of complete cartilaginous erosion noted on the head of the first metatarsal, generalized thinning of the cartilage on both sides of the joint, bone spurring squaring of the joint noted both sides of the joint. Procedure Description: Tasneem was brought to the operative suite placed in the supine position with the left foot prepped and draped in the usual sterile podiatric fashion. Timeout was performed for safe surgery. Anesthesia was achieved through IV general and a left ankle block utilizing 11 cc of a 50: 50 mixture 1% lidocaine plain, 0.5% Marcaine plain and then supplemented with an additional 9 cc same mixture in a ring block at the base of the first ray. The left foot was exsanguinated well- padded ankle tourniquet inflated 250 mmHg. With #10 scalpel a 5 cm incision was made dorsal medially parallel to the EHL tendon over the first MPJ left foot. Incision was deepened in controlled depth fashion. Dissection was carried down to the joint capsule which was longitudinally dorsally incised and . Immediately evident was bone spurring across the dorsum of the first metatarsal head extending to the medial lateral edges of the joint. Inspection of the articular surface revealed a area of complete erosion in the central slightly plantar position of the first metatarsal head as well as generalized thinning of the articular surfaces on both sides of the joint. With power instrumentation the modified Darrian modification was performed resecting the dorsal component of the first MPJ. With a hand rasp and round sure additional bone was resected removing the medial lateral exostoses of the head and base of the joint. Power instrumentation was then used to rasp and remodel the head of the first metatarsal and dorsal component of the base of the proximal phalanx. Range of motion was trialed and improved range of motion was noted. I microfractured the denuded region of the articular cartilage with a 0.035 K wire and removed any friable cartilaginous pieces. Copious irrigation was then performed. The joint capsule was then repaired with simple interrupted suture 3-0 Vicryl subcutaneous layer was brought together with simple interrupted suture of 4-0 Vicryl the skin was brought together with continuous running suture of 4-0 Monocryl. Half-inch Steri-Strips with Mastisol applied to the skin followed by Xeroform gauze fluff compression dressings after infusing 5 mg of dexamethasone phosphate at the base of the the incision. Tourniquet was released at 35 minutes with vascularity returning immediately to all toes. Sharp and sponge counts were correct. Tasneem left the OR with vital signs stable vascular status intact. Should be followed by myself in the office next week.
[2021-05-07 09:56] VITALS: BP 106/81; PULSE 64; RESP 16; TEMP 36; O2SAT 100
[2021-05-07 10:27] VITALS: BP 125/78; PULSE 66; RESP 16; TEMP 36.4; O2SAT 100
--- NOTE | 2021-05-07 11:38 | W.ANESPOSTOP ---
Postoperative Evaluation Date, Time and Location Date Performed: 05/07/21 Time Performed: 11:38 Patient Location: Day Surgery Unit Vital Signs Most Recent Imported Vital Signs: Most Recent Vital Signs Temp Pulse Resp BP Pulse Ox 36.4 C L 66 16 125/78 100 05/07/21 10:27 05/07/21 10:27 05/07/21 10:27 05/07/21 10:27 05/07/21 10:27 Pain Score Most Recent Pain Score: Most Recent Pain Score Pain Level 0 05/07/21 10:27 Assessment Mental Status: Awake (Alert & Oriented to Patient Baseline) Airway and Respiratory Function: Patent airway with normal (patient baseline) respiratory exam Cardiovascular Function: Hemodynamically Stable Hydration Status: Adequately Hydrated Nausea & Vomiting: No Nausea or Vomiting Pain: Pt. Denies Any Pain Peripheral Nerve Block: Patient did not receive a nerve block
== END 2021-05-07 11:27 | disposition home or self-care (01) ==
PROVIDERS: PCP Nurse Practitioner; Visit Provider Podiatrist
PROC: (CPT 28289; principal; 2021-05-07 08:30)
DX: M21.612 Bunion of left foot (principal); E03.9 Hypothyroidism, unspecified; D51.0 Vitamin B12 deficiency anemia due to intrinsic factor deficiency; I44.1 Atrioventricular block, second degree
CPT/HCPCS: 28299; J0690; J1100; J2405

== ENCOUNTER 2021-07-09 17:45 | Outpatient (REF) | payer BC, SELFPAY ==
--- NOTE | 2021-07-09 16:35 | SKI_PTH ---
PATIENT: Tasneem Galeana LOC: [facility]#:[id number] AGE/SX: 55/F ROOM: RE07/09/[address]: Marcelino Srivastava : 1965 BED: DIS: 07/09/2021 SPEC #: [id number] RECD: 07/13/21 12:14 STATUS: GAYATHRI BELL #: [id number] KEVIN: 07/09/21 16:[address]: Marcelino Srivastava DEPT: Surgical Specimen RECD BY: Rowan Laura ENTERED: 07/13/21 12:14 SP TYPE: GOPAL YBARRA DR: Katie Tong Tissues: 1 - SKIN BIOPSY(SHAVE/PUNCH) Procedures: SKIN LEVEL 4 Comments: [id number]
== END 2021-07-09 17:46 | disposition home or self-care (01) ==
LOC: NCHCN 17:45
PROVIDERS: PCP Nurse Practitioner; Visit Provider Nurse Practitioner Family
DX: L57.0 Actinic keratosis (principal)
CPT/HCPCS: 88305

== ENCOUNTER 2021-10-26 21:45 | Outpatient (REF) | payer BC, SELFPAY ==
[2021-10-26 19:26] LABS: Bilirubin Negative (Negative); Blood Negative (Negative); Clarity Clear (Clear); Glucose Negative (Negative); Ketones Negative (Negative); Leukocyte Esterase Negative (Negative); Nitrite Negative (Negative); Urobilinogen 0.2 EU/dL (Up TO 0.2)
== END 2021-10-26 21:46 | disposition home or self-care (01) ==
LOC: NCHCN 21:45
PROVIDERS: PCP Nurse Practitioner; Visit Provider Nurse Practitioner Family
DX: R32 Unspecified urinary incontinence (principal)
CPT/HCPCS: 81003

== ENCOUNTER 2021-11-01 19:28 | Outpatient (REF) | payer BC, SELFPAY ==
[2021-11-01 19:51] LABS: TSH (W/Ref FT4) 0.11 uIU/mL (0.36-3.74)
[2021-11-01 20:09] LABS: FREE T4 1.27 ng/dL (0.76-1.46)
== END 2021-11-01 19:29 | disposition home or self-care (01) ==
LOC: NCHCN 19:28
PROVIDERS: PCP Nurse Practitioner
DX: E03.9 Hypothyroidism, unspecified (principal)
CPT/HCPCS: 84439; 84443

== ENCOUNTER 2022-04-20 01:51 | Outpatient (CLI) | payer BC, SELFPAY ==
--- NOTE | 2022-04-20 | DI.MAMMO_ITS ---
Exam(s) MAMMO SCREENING EXAM: MAMMO SCREENING CLINICAL HISTORY: SCREENING, Z12.39 TECHNIQUE: Mammograms were interpreted according to the usual protocol including computer analysis w CyberVision Text CAD system, tomosynthesis and C-view imaging. COMPARISON: 2013 through 2021 FINDINGS: The breasts are composed of scattered fibroglandular densities, Breast Density category B. No suspicious masses or suspicious microcalcifications are seen. No skin thickening or abnormal axillary lymph nodes are seen. There has been no significant change from prior exams. IMPRESSION: BI-RADS Category 1, Negative mammogram Yearly screening mammography is recommended. Breast Density - Category B, scattered fibroglandular densities. A negative radiographic report should not delay biopsy if a dominant or clinically suspicious mass is present. Up to ten percent of cancers are not identified on mammography. A negative report may reinforce clinical impression. Adenosis and dense breasts may obscure an underlying neoplasm. False positive reports average 6 to 10%. Patient will receive a letter notifying them of these results.
== END 2022-04-20 02:11 ==
LOC: DI 01:52
PROVIDERS: PCP Nurse Practitioner; Visit Provider Nurse Practitioner Family
DX: Z12.31 Encounter for screening mammogram for malignant neoplasm of breast (principal); R92.8 Other abnormal and inconclusive findings on diagnostic imaging of breast
CPT/HCPCS: 77063; 77067

== ENCOUNTER 2022-06-07 16:01 | Outpatient (REF) | payer BC, SELFPAY ==
[2022-06-07 19:47] LABS: TSH 0.19 uIU/mL (0.36-3.74)
== END 2022-06-07 16:02 | disposition home or self-care (01) ==
LOC: NCHCN 16:01
PROVIDERS: PCP Nurse Practitioner; Visit Provider Nurse Practitioner Family
DX: E03.9 Hypothyroidism, unspecified (principal)
CPT/HCPCS: 84443

== ENCOUNTER 2022-08-04 16:37 | Outpatient (REF) | payer BC, SELFPAY ==
[2022-08-04 17:36] LABS: TSH 3.47 uIU/mL (0.36-3.74)
== END 2022-08-04 16:38 | disposition home or self-care (01) ==
LOC: NCHCN 16:37
PROVIDERS: PCP Nurse Practitioner; Visit Provider Nurse Practitioner Family
DX: E03.9 Hypothyroidism, unspecified (principal)
CPT/HCPCS: 84443

== ENCOUNTER 2023-03-17 15:08 | Outpatient (REF) | payer BC, SELFPAY ==
[2023-03-17 19:35] LABS: HCT 32.6 % (36.0-46.0); MCH 29.6 pg (27.0-33.0); MCHC 33.7 % (32.0-36.0); MCV 88 fL (80-95); MPV 9.6 fL (8.0-11.0); Platelet Count 202 10^3/uL (130-400); RBC 3.71 10^6/uL (3.93-5.22); RDW 13.2 % (11.7-14.6); RDW-SD 42.9 fL; WBC 4.56 10^3/uL (4.4-10.8)
[2023-03-17 19:58] LABS: FREE T4 0.92 ng/dL (0.76-1.46); TSH 2.84 uIU/mL (0.36-3.74)
[2023-03-17 20:08] LABS: Hemoglobin A1C 5.4 % (<5.7)
== END 2023-03-17 15:09 | disposition home or self-care (01) ==
LOC: NCHCN 15:08
PROVIDERS: PCP Nurse Practitioner; Visit Provider Nurse Practitioner Family
DX: L29.3 Anogenital pruritus, unspecified (principal)
CPT/HCPCS: 85027; 83036; 84439; 84443; 87480; 87510; 87660

== ENCOUNTER 2023-05-01 11:01 | Outpatient (CLI) | payer BC, SELFPAY ==
[2023-05-01 20:20] LABS: Vitamin B12 386 pg/mL (193-986)
== END 2023-05-01 11:02 ==
LOC: LBO 05-02 11:02
PROVIDERS: PCP Nurse Practitioner Family; Visit Provider Nurse Practitioner Family
DX: Z13.9 Encounter for screening, unspecified (principal)
CPT/HCPCS: 36415; 82607

== ENCOUNTER 2024-02-02 12:52 | Outpatient (REF) | payer BC, SELFPAY ==
--- OUTSIDE RECORDS SUMMARY | 2024-02-02 12:54 | XMS_ITS | Encounter Summary ---
[place] [address] Care Team Providers Care Calender Wind Up Helper Name Role Phone Katie Tong APRN Primary Care Provider [phone] Encounter Details Date Type Department Care Team (Late st Contact Info) Description 01/26/2020 External Results [place] [address] Social History Tobacco Use Types Packs/Day Years Used Date Smoking Tobacco: Never Assessed Sex and Gender Information Value Date Recorded Sex Assigned at Not on file Gender Identity Not on file Sexual Orientation Not on file documented as of this encounter Plan of Treatment Not on file documented as of this encounter Procedures Procedure Name Priority Date/Time Associated Diagnosis Comments ECG SCAN Routine 01/26/2020 documented in this encounter Results * Scan Doc: ECG (01/26/2020) Historical Provider MEDIA MGR SCAN EX T ORDR/RSLT documented in this encounter Visit Diagnoses Not on filedocumented in this encounter Care Teams Calender Wind Up Helper Relationship Specialty Start Date End Date Katie Tong APRN [address] [facility] [place] [address] PCP - General Family Medicine 01/28/20 documented as of this encounter
--- OUTSIDE RECORDS SUMMARY | 2024-02-02 12:54 | XMS_ITS | Encounter Summary ---
Author Organization [facility] Address [address] [place] [address] Care Team Providers Care Horser Up Name Role Phone Unavailable Primary Care Provider Unavailabl e Encounter Details Date Type Department Care Team (Late st Contact Info) Description 04/29/2009 Results Only [facility] Laboratory Services - [facility] ([facility]) [address], [place] [id number] Keira Hussein NP [address] [facility],[address] [phone] Social History Tobacco Use Types Packs/Day Years Used Date Smoking Tobacco: Never Assessed Comments Unknown Sex and Gender Information Value Date Recorded Sex Assigned at Not on file Legal Sex Female 18:39 EST Gender Identity Not on file Sexual Orientation Not on file documented as of this encounter Plan of Treatment Not on file documented as of this encounter Procedures Procedure Name Priority Date/Time Associated Diagnosis Comments HPV DETECTION, HIGH RISK TYPES Routine 04/29/2009 8:47 EDT CYTOPATHOLOGY Routine 04/29/2009 0:00 EDT documented in this encounter Results * HUMAN PAPILLOMA VIRUS DNA TEST (04/29/2009 8:47 EDT) Specimen Description Cervix, ThinPrep vial [facility] Result Negative for HPV types 16, 18, 31, 33, 35, 39, 45, 51, 52, 56, 58, 59, and 68. [facility] Report Status Final 05/06/2009 [facility] 04/29/2009 8:47 EDT 05/05/2009 8:47 EDT us Keira Hussein NP MICROBIOLOGY - GENERAL ORDER SHUKRI Final Result [facility] [address] [place] [address] * CYTOPATHOLOGY (04/29/2009 0:00 EDT) Pathology Report: CYTOPATHOLOGY REPORT ? Reports generated via electronic interface contain original data; ? however they are lacking the format of the original report. ? Caution should be taken when reading/interpreti ng unformatted reports. ? Name: ? MARISEL ANN ? Accession #: ? [id number] ? : ? 1965 (Age: 43) ??F ?Collect Date: ? 04/29/2009 ? Location: ? [facility] ? Receive Date: ? 05/01/2009 ? Provider: ?KEIRA W BESCH POULTRY BONER ? Copy to: ? Specimen/Source: ?Pap Test, Cervix/Endocervix, ThinPrep Imaging System ? with manual evaluation ? Last Menstrual Period: ? 3/8/10 ? Other: ? HPVDX - HPV testing requested regardless of diagnosis on current ThinPrep Pap ?? test. ? SPECIMEN ADEQUACY ? Satisfactory for Evaluation ? - transformation zone component present ? GENERAL CATEGORIZATION ? Negative for Intraepithelial Lesion or Malignancy ? Document reviewed and electronically signed by: ? Estela Bernardo, CT(ASCP) ? Report Date: ??05/04/2009 13:39 ? End of Report ? [facility] 04/29/2009 05/01/2009 us Keira Hussein POULTRY BONER PATHOLOGY ORDERABLES Final R esult [facility] [address] [place] [address] documented in this encounter Visit Diagnoses Not on filedocumented in this encounter
--- OUTSIDE RECORDS SUMMARY | 2024-02-02 12:54 | XMS_ITS | Encounter Summary ---
[place] [address] Care Team Providers Care Frit Mixer Name Role Phone Katie Tong APRN Primary Care Provider [phone] Encounter Details Date Type Department Care Team (Latest Contact Info) Description 03/02/2022 Travel Social History Tobacco Use Types Packs/Day Years Used Date Smoking Tobacco: Former Cigarettes Smokeless Tobacco: Never Alcohol Use Standard Drinks/Week Comments Yes 2 (1 standard drink = 0.6 oz pur e alcohol) Sex and Gender Information Value Date Recorded Sex Assigned at Not on file Gender Identity Not on file Sexual Orientation Not on file documented as of this encounter Plan of Treatment Not on file documented as of this encounter Visit Diagnoses Not on filedocumented in this encounter Care Teams Frit Mixer Relationship Specialty Start Date End Date Katie Tong APRN [address] [address] PCP - General Family Medicine 01/28/20 documented as of this encounter
--- OUTSIDE RECORDS SUMMARY | 2024-02-02 12:54 | XMS_ITS | Encounter Summary ---
Author Organization [facility] Address [address] [place] [address] Care Team Providers Care Crossing Supervisor Name Role Phone AgustinFatimah QUALITY CONTROL TECHNICIAN Unavailable [phone] Katie Tong NP Primary Care Provider [phone] Encounter Details Date Type Department Care Team (Late st Contact Info) Description 07/13/2021 Lab Requisition [facility] Pathology & Laboratory Medicine - [facility] [address] [place] [address] Marcelino Gamez, [facility] [address] [place] [id number] Other specified disorders of the skin and subcutaneous tissue Social History Tobacco Use Types Packs/Day Years [...] Procedure Name Priority Date/Time Associated Diagnosis Comments SURGICAL PATHOLOGY Today 07/09/2021 16 :35 EDT Other specified disorders of the skin and subcutaneous tissue documented in this encounter Results * SURGICAL PATHOLOGY (07/09/2021 16:35 EDT) Note to Patient The following pathology results have been interpreted by your pathologist and may be available to you before your health provider has had the opportunity to review them. Please allow time for your provider to receive these results and explore management options, if applicable. 07/14/2021 15:39 [facility] Final Diagnosis A. SKIN OF SCALP, PUNCH BIOPSY: - Actinic keratosis, acanthotic type. 07/14/2021 15:39 [facility] Attestation By the signature below, the attending physician certifies that they have 1) personally conducted a gross and/or microscopic examination of the described specimen(s), and/or personally interpreted the results of laboratory testing of the described specimen(s), and 2) personally rendered or confirmed the above diagnosis. 07/14/2021 15:39 [facility] at 1539 Microscopic Description There is hyperkeratosis and parakeratosis. The epidermis is hyperplastic and shows variable atypia with nuclear enlargement, hyperchromasia, and dyspolarity. There are areas of acantholysis. The dermis has solar elastosis and lymphomononuclear inflammation. 07/14/2021 15:39 [facility] Clinical History Skin lesions; clinical diagnosis code: L98.8 07/14/2021 15:39 [facility] Gross Description A. Received in formalin labelled with proper patient identification (initials G, L) and scalp is an irregular chavez-brown tissue without obvious orientation, 0.3 x 0.1 x 0.1 cm. Entirely submitted intact in A1. VERNON KISER(ASCP) 07/14/2021 7:24 07/14/2021 15:[address] [facility] Performing Lab [facility] 07/14/2021 15:39 [facility] Scanned Images 07/14/2021 15:39 [facility] Tissue TISSUE SPECIMEN FROM SKIN / Unknown 07/09/2021 16:35 EDT 07/13/2021 18:37 EDT Marcelino Srivastava DNP PATHOLOGY ORDERABLES Diana gardner Result [facility] [address] [place] [address] documented in this encounter Visit Diagnoses Diagnosis Other specified disorders of the skin and subcutaneous tissue documented in this encounter Care Teams Crossing Supervisor Relationship Specialty Start Date End Date Katie Tong NP [address] [place] [address] PCP - General 06/13/21 Fatimah Velez NP 03/17/15 documented as of this encounter
--- OUTSIDE RECORDS SUMMARY | 2024-02-02 12:54 | XMS_ITS | Encounter Summary ---
[place] [address] Care Team Providers Care Latent Print Examiner Name Role Phone Katie Tong APRN Primary Care Provider [phone] Encounter Details Date Type Department Care Team (Late st Contact Info) Description 08/19/2020 Telephone Cardiology at [address] [phone] Ariana Davila, KAILEY Social History Tobacco Use Types Packs/Day Years [...] on filedocumented in this encounter Care Teams Latent Print Examiner Relationship Specialty Start Date End Date Katie Tong APRN [facility] [address] [facility] [address] PCP - General Family Medicine 01/28/20 documented as of this encounter
--- OUTSIDE RECORDS SUMMARY | 2024-02-02 12:54 | XMS_ITS | Encounter Summary ---
Author Organization [facility] [place] [address] Care Team Providers Care Bid Analyst Name Role Phone Katie Tong DUONG Primary Care Provider [phone] Encounter Details Date Type Department Care Team (Late st Contact Info) Description 09/10/2020 Telephone Cardiology at [address] [phone] Gaurav Massey MD [facility] [place] [address] Social History Tobacco Use Types Packs/Day Years Used Date Smoking Tobacco: Former Cigarettes Smokeless Tobacco: Never Alcohol Use Standard Drinks/Week Comments Yes 2 (1 standard drink = 0.6 oz pur e alcohol) Sex and Gender Information Value Date Recorded Sex Assigned at Not on file Gender Identity Not on file Sexual Orientation Not on file documented as of this encounter Miscellaneous Notes * Telephone Encounter - Gaurav Massey MD - 09/10/2020 5:00 PM EDT I placed a call to Ms. Tasneem Su to discuss her zio results but left a voicemail on her cell. Zio results show no tachy or bradyarrhythmias. Gaurav Massey MD [facility]iac Electrophysiology 09/10/2020 5:01 PM documented in this encounter Plan of Treatment Not on file documented as of this encounter Visit Diagnoses Not on filedocumented in this encounter Care Teams Bid Analyst Relationship Specialty Start Date End Date Katie Tong APRN [address] [place] [address] PCP - General Family Medicine 01/28/20 documented as of this encounter
--- OUTSIDE RECORDS SUMMARY | 2024-02-02 12:54 | XMS_ITS | Referral Summary ---
Author Organization [facility] Address [address] [place] [address] Care Team Providers Care Director Of Home Health Services Name Role Phone VelezFatimah cintron HEEL WASHER STRINGING MACHINE OPERATOR Unavailable [phone] Katie Tong NP Primary Care Provider [phone] Social History Tobacco Use Types Packs/Day Years Used Date Smoking Tobacco: Never Assessed Comments Unknown Sex and Gender Information Value Date Recorded Sex Assigned at Not on file Legal Sex Female 18:39 EST Gender Identity Not on file Sexual Orientation Not on file Plan of Treatment Not on file Insurance [facility] Care Teams Director Of Home Health Services Relationship Specialty Start Date End Date Katie Tong [place] [address] PCP - General 06/13/21 Fatimah Velez NP 03/17/15
--- OUTSIDE RECORDS SUMMARY | 2024-02-02 12:54 | XMS_ITS | Encounter Summary ---
Author Organization [facility] [place] [address] Care Team Providers Care Manager Of Learning Name Role Phone Lee Gupta MD Primary Care Provider [phone] Encounter Details Date Type Department Care Team (Late st Contact Info) Description 01/26/2020 Telephone Cardiology at [address] [phone] Saurabh King MD Social History Tobacco Use Types Packs/Day Years Used Date Smoking Tobacco: Never Assessed Sex and Gender Information Value Date Recorded Sex Assigned at Not on file Gender Identity Not on file Sexual Orientation Not on file documented as of this encounter Miscellaneous Notes * Telephone Encounter - Saurabh King MD - 01/26/2020 9:38 PM EST Images from the original note were not included. 01/26/2020 Tasneem Su Initial Contact Date: 01/26/2020 Initial contact time: 9:38 PM Referring Provider: Dr. Sanders Patient Location: [facility] Presenting Symptoms per OSH: 54F with h/o palpitations who presented with lightheadedness x6 months. Was seen by her primary blade groover Dr. Cabral at [facility] who ordered a tress test and 30 day patch monitor. Stress was negative but patch monitor showed evidence of high grade block. No chest pain or SOB. 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 Evidence of high grade block on patch monitor strips. No evidence of ischemia with recent negative nuc stress. Will transfer here for evaluation for PPM. Above recommendations were based on my discussion with Dr. Sanders; I have not personally interviewed or examined this patient. Advised to call the transfer center back with any changes in the patient condition. Saurabh King PGY4 Cardiology [id number] documented in this encounter Plan of Treatment Not on file documented as of this encounter Visit Diagnoses Not on filedocumented in this encounter Care Teams Manager Of Learning Relationship Specialty Start Date End Date Lee Gupta MD PCP - General 01/05/10 01/27/20 documented as of this encounter
--- OUTSIDE RECORDS SUMMARY | 2024-02-02 12:54 | XMS_ITS | Encounter Summary ---
Author Organization [facility] Address [facility] [place] [address] Care Team Providers Care Assembly Machine Tender Name Role Phone KvngKatie gordon DUONG Primary Care Provider [phone] Encounter Details Date Type Department Care Team (Late st Contact Info) Description 08/03/2020 Telephone Cardiology at [address] [phone] Gaurav Massey MD [facility] [address] [place] [address] Social History Tobacco Use Types Packs/Day Years [...] Telephone Encounter - Gaurav Massey MD - 08/03/2020 2:39 PM EDT I called Ms. Su's cell number and left a voicemail, to discuss her zio patch results. zio was unremarkable and showed no AV block but also no tachyarrhythmias. Gaurav Massey MD [facility] Cardiac Electrophys[facility] 08/03/2020 2:39 PM documented in this encounter Plan of Treatment Not on file documented as of this encounter Visit Diagnoses Not on filedocumented in this encounter Care Teams Assembly Machine Tender Relationship Specialty Start Date End Date Katie Tong, SECURITY NURSE [address] [place] [address] PCP - General Family Medicine 01/28/20 documented as of this encounter
--- OUTSIDE RECORDS SUMMARY | 2024-02-02 12:54 | XMS_ITS | Encounter Summary ---
Author Organization [facility] Address [address] [place] [address] Care Team Providers Care Naprapath Name Role Phone Unknown, Provider Primary Care Provider Tatyana Eldridge NP Primary Care Provider [phone] Unknown, Provider Unavailable Unavailable Encounter Details Date Type Department Care Team (Late st Contact Info) Description 03/10/2015 Results Only [facility] [phone] Hitesh Troncoso Jr., MD [address] [place] [phone] Social History Tobacco Use Types Packs/Day Years [...] Priority Date/Time Associated Diagnosis Comments SURGICAL PATHOLOGY Routine 03/10/2015 12 :40 EST documented in this encounter Results * SURGICAL PATHOLOGY (03/10/2015 12:40 EST) Pathology Report: SURGICAL PATHOLOGY REPORT Reports generated via electronic interface contain original data; however they are lacking the format of the original report. Caution should be taken when reading/interpret ing unformatted reports. Name: ? MARISEL PALACIOS ? Accession #: ? [id number] ? : ? 1965 (Age: 49) ??F ? Collect Date: ? 03/10/2015 ? Location: ? [facility] ? Receive Date: ? 03/11/2015 ? Provider: HITESH TRONCOSO MD Copy to: TATYANA LOZANO FRESH FOOD MANAGER ? Final Pathologic Diagnosis: SOFT TISSUE OF WRIST, RIGHT DORSAUM, EXCISION: - ??Ganglion cyst. Document reviewed and electronically signed by: MASHA ONEIL MD Report ??Date: 03/13/2015 16:00 By the signature above, the attending physician certifies that he/she has personally conducted a gross and/or microscopic examination of the described specimens and rendered or confirmed the above diagnosis. Specimen(s) Received: Right dorsal wrist mass Clinical History: Right dorsal wrist mass Gross Description: ? Received in formalin labelled with proper patient identification (initials G, L) and right dorsal wrist mass is a single piece of chavez-pink to chavez-white fibromembranous tissue (2.7 x 1.9 x 0.5 cm). ??The cut surface is unremarkable. The specimen is serially sectioned and entirely submitted as [address] Lois Camacho 03/11/2015 3:09 PM End of Report [facility] 03/10/2015 12:4 0 EST 03/11/2015 12:40 EST us Hitesh Troncoso Jr., MD PATHOLOGY ORDER SHUKRI Final Result [facility] [address] [place] [address] documented in this encounter Visit Diagnoses Not on filedocumented in this encounter Care Teams Naprapath Relationship Specialty Start Date End Date Unknown, Provider, PCP - General 01/21/15 03/10/15 Tatyana Lozano NP PCP - General 03/11/15 03/16/15 Unknown, Provider, 01/21/15 03/16/15 documented as of this encounter
--- OUTSIDE RECORDS SUMMARY | 2024-02-02 12:54 | XMS_ITS | Encounter Summary ---
Author Organization [facility] Address [address] [place] [address] Care Team Providers Care Fire Extinguisher Technician Name Role Phone Unavailable Primary Care Provider Unavailabl e Encounter Details Date Type Department Care Team (Late st Contact Info) Description 01/25/2006 Results Only [facility] [address] [place] [address] Keira Hussein, LAUNCHMAN [address] [place] [phone] Social History Tobacco Use Types Packs/Day [...] Procedure Name Priority Date/Time Associated Diagnosis Comments CYTOPATHOLOGY Routine 01/25/2006 0:00 EST documented in this encounter Results * CYTOPATHOLOGY (01/25/2006 0:00 EST) Pathology Report: CYTOPATHOLOGY REPORT Reports generated via electronic interface contain original data; however they are lacking the format of the original report. Caution should be taken when reading/interpreti ng unformatted reports. Name: ? MARISEL ANN ? Accession #: ? [id number] : ? 1965 (Age: 40) ??F ?Collect Date: ? 01/25/2006 Location: ? [facility] ? Receive Date: ? 01/27/2006 Provider: ?KEIRA HUSSEIN NP Copy to: ? Specimen/Source: ?ThinPrep Pap Test, Cervix/Endocervix, processed on AngioSlide ThinPrep Imaging System, with manual evaluation Last Menstrual Period: ? 01/09/06 Other: ? HPVA - HPV testing requested if ASC-US on the current ThinPrep Pap test. ? SPECIMEN ADEQUACY ? Satisfactory for Evaluation - transformation zone component present GENERAL CATEGORIZATION ? Negative for Intraepithelial Lesion or Malignancy ? Document reviewed and electronically signed by: ? Giovana Parker, SCT(ASCP) ? Report Date: ??02/02/2006 10:53 End of Report [facility] 01/25/2006 01/27/2006 us Keira Hussein NP PATHOLOGY ORDERABLES Final R esult [facility] [address] [place] [address] documented in this encounter Visit Diagnoses Not on filedocumented in this encounter
--- OUTSIDE RECORDS SUMMARY | 2024-02-02 12:54 | XMS_ITS | Encounter Summary ---
Author Organization [facility] [place] [address] Care Team Providers Care Notch Machine Operator Name Role Phone Ran Katie WATTERS Primary Care Provider [phone] Reason for Referral * Diagnostic Test (Routine) - Closed Specialty Diagnoses / Procedures Referred By Contvelia t Referred To Contact Cardiology Diagnoses Palpitations Lightheaded 2nd degree AV block Procedures Ziopatch 48 Hrs-15 Days Gaurav Massey MD [facility] [place] [place] [address] [facility] [place] [address] Referral ID Status Reason Start Date Expiration Date V isits Requested Visits Authorized [id number] Closed Specialty Service Requested 06/18/2020 12/19/2020 1 1 Encounter Details Date Type Department Care Team (Late st Contact Info) Description 06/17/2020 Orders Only Cardiology at [address] [phone] Gaurav Massey MD [facility] [place] [address] Palpitations; Lightheaded; 2nd degree AV block Social History Tobacco Use Types Packs/Day Years Used Date Smoking Tobacco: Former Cigarettes Smokeless Tobacco: Never Alcohol Use Standard Drinks/Week Comments Yes 2 (1 standard drink = 0.6 oz pur e alcohol) Sex and Gender Information Value Date Recorded Sex Assigned at Not on file Gender Identity Not on file Sexual Orientation Not on file documented as of this encounter Progress Notes * Gaurav Massey MD - 06/17/2020 9:58 AM EDT I have ordered a zio patch monitor for Ms. Su for ongoing lightheadedness episodes with exertion despite medication change and also for rhythm diagnosis of ongoing palpitations. Gaurav Massey MD [facility] Cardiac Electrophysiology 06/17/2020 10:00 AM documented in this encounter Plan of Treatment Not on file documented as of this encounter Results * Ziopatch 48 Hrs-15 Days (06/29/2020 11:03 AM EDT) Anatomical Region Laterality Modality Other Narrative 07/31/2020 2:13 PM EDT [facility] ? Zio Patch? Ambulatory Cardiac Event Monitor Report Indication: Palpitations Duration of recording ? 11 days 3 hours (after removing artifact) Summary Data Predominant rhythm ? sinus rhythm Minimum sinus rate 57 bpm Maximum sinus rate 165 bpm Average heart rate was 87 bpm Atrial fibrillation was not seen. High degree AV block was not seen. Pauses were not seen. Ectopic beats Rare atrial premature beats (APBs) (<1%) Rare ventricular premature beats (VPBs) (<1%) No runs of SVT were detected. No high grade ectopy Triggered and Patient Diary Events There were 0 triggered and 1 patient diary event (pounding, skipped beats)which correlated with normal sinus rhythm at 82 bpm. Conclusion(s): ?? 1) Predominant rhythm is sinus 2) Rare atrial and ventricular ectopy. 3) No atrial fibrillation, flutter, or SVT. 4) Symptoms occurred during normal sinus rhythm. Gaurav Massey MD CARDIAC SERVICES ORD ERABLES documented in this encounter Visit Diagnoses Diagnosis Palpitations Lightheaded Dizziness and giddiness 2nd degree AV block Other second degree atrioventricular block Palpitations Lightheaded Dizziness and giddiness 2nd degree AV block Other second degree atrioventricular block documented in this encounter Care Teams Notch Machine Operator Relationship Specialty Start Date End Date Katie Tong, NATURAL FABRICATOR [address] [place] [address] PCP - General Family Medicine 01/28/20 documented as of this encounter
--- OUTSIDE RECORDS SUMMARY | 2024-02-02 12:54 | XMS_ITS | Clinical Summary ---
Author Organization [facility] [place] [address] Care Team Providers Care Basket Mender Name Role Phone Katie Tong APRN Primary Care Provider [phone] Allergies No known active allergies Medications Medication Sig Dispensed Refills Start Date End Date Status levothyroxine (Synthroid) 112 mcg Tablet Take 112 mcg by mouth daily. Active cyanocobalamin, Vitamin B-12, 1,000 mcg/mL Solution Inject 1,000 mcg as directed every 30 days. Active ibuprofen (Advil;Motrin) 600 mg Tablet Take 600 mg by mouth every 6 hours as needed for Pain. Active metoprolol tartrate (Lopressor) 25 mg Tablet Take 1 tablet by mouth 2 times daily. 180 tablet 3 01/28/2020 Active Fluorouracil 5 % SolutionIndications: Actinic keratoses Apply twice daily to affected areas of scalp for 3 weeks. 10 mL 2 08/11/2022 Active Active Problems Problem Noted Date Diagnosed Date AV block, 2nd degree 08/19/2020 Lightheadedness 08/19/2020 Palpitations 08/19/2020 Syncope 08/19/2020 AVB (atrioventricular block) 01/27/2020 Family History Medical History Relation Comments Pacemaker Father late 50s Transient Ischemic Attack Maternal Grandmother Pacemaker Paternal Grandmother Relation Status Comments Father Maternal Grandmother Paternal Grandmother Social History Tobacco Use Types Packs/Day Years Used Date Smoking Tobacco: Former Cigarettes Smokeless Tobacco: Never Alcohol Use Standard Drinks/Week Comments Yes 2 (1 standard drink = 0.6 oz pur e alcohol) Sex and Gender Information Value Date Recorded Sex Assigned at Not on file Gender Identity Not on file Sexual Orientation Not on file Last Filed Vital Signs Vital Sign Reading Time Taken Comments Blood Pressure 111/79 01/28/2020 10:00 AM EST Pulse 65 01/28/2020 10:00 AM EST Temperature 36.7 ??C (98.1 ??F) 01/28/2020 4:00 AM ES T Respiratory Rate 9 01/28/2020 10:0 0 AM EST Oxygen Saturation 99% 01/28/2020 10: 00 AM EST Inhaled Oxygen Concentration - - Weight 65.2 kg (143 lb 11.8 oz) 01/28/2020 5:24 AM EST Height 157.5 cm (5' 2) 01/27/2020 12:5 6 AM EST Body Mass Index 26.29 01/27/2020 12:56 AM EST Plan of Treatment Health Maintenance Due Date Last Done Comments CT Colonography 1965 Colonoscopy 1965 Colorectal Cancer Screening 1965 FIT DNA 1965 FIT 1965 Sigmoidoscopy (10 year) with FIT yearly 1965 Sigmoidoscopy 1965 HIV screen 09/18/1981 Hepatitis C Screening 09/18/1981 Pneumococcal Vaccine: At-Ris k 5-64yrs (1 of 2 - PCV) 09/18/1982 Tetanus/Diphtheria/Pertussis Vaccines (1 - Tdap) 09/18/1982 HPV test 09/18/1993 PAP Smear 09/18/1993 Breast Cancer Share Decision Needed 2003 Breast Cancer screening 2003 Zoster vaccine (1 of 2) 09/18/2013 Advance Directive 09/18/2018 RSV Vaccine (1 - Risk 60-74 years 1-dose series) 2023 Covid-19 Vaccine (1 - 2023-2 5 season) 2023 Influenza (Flu) vaccine (1 o f 1 - Influenza standard series) 10/15/2023 Diabetes Screening (HgbA1C o r Glucose) Discontinued 01/28/2020, 01/27/2020, 01/27/2020 Procedures Procedure Name Priority Date/Time Associated Diagnosis Comments HC VENIPUNCTURE Routine 01/28/2020 4:27 AM EST from Last 3 Months or Most Recently Relevant to Health Maintenance Results * (ABNORMAL) BMP w/fasting Glucose (01/28/2020 4:27 AM EST) [facility] Signature Glucose Fasting 92 65 - 99 mg/dL [facility] Comment: ?Fasting* Glucose Interpretive Criteria Normal ?65-99 mg/dL Impaired Fasting glucose ?100-125 mg/dL Consistent with Diabetes Mellitus ? >or= 126 mg/dL *Fasting is defined as no caloric intake for at least 8 hours In the absence of unequivocal hyperglycemia a plasma glucose value of >or= 126 mg/dL should be repeated on a subsequent day. Diagnosis and Classification of Diabetes Mellitus, Position Statement from the [place] [employer]. ??Diabetes Care, Volume 33, Supplement 1, Feb 2009 Blood Urea Nitrogen 9 8 - 18 mg/dL [facility] Creatinine 0.63(L) 0.70 - 1.20 mg/dL [facility] Sodium 140 135 - 145 mmol/L [facility] Potassium 4.1 3.5 - 5.0 mmol/L [facility] Comment: Please note: ??Patients with WBC >100,000 may have falsely elevated Potassium levels. ??For accurate Potassium quantification in these patients send serum separator tube (gold top) for subsequent determinations. ??Contact the Clinical Chemistry Laboratory if there are any questions. Chloride 107 98 - 107 mmol/L [facility] Carbon Dioxide 25 22 - 31 mmol/L [facility] Anion Gap 8 5 - 15 mmol/L [facility] Calcium 9.0 8.5 - 10.5 mg/dL [facility] Est Glomerular Filtration Rate 100 >=60 mL/min/1. 73 m?? [facility] Comment: This patient? s estimated glomerular filtration rate (eGFR) is between 100 mL/min/1.73 m2 (patients with less muscle mass) and 116 mL/min/1.73 m2 (patients with more muscle mass) as determined by the CKD-EPI equation. Assessment of eGFR is not appropriate when creatinine concentrations are rapidly changing. For clinical decisions where creatinine clearance will affect therapy, a 24-hour urine creatinine clearance may be advised. Assignment of CKD stage 1 ? 5 for patients with an eGFR near the transition point between stages may be based on clinical assessment of muscle mass and symptoms in addition to eGFR. Blood specimen (specimen) 01/28/2020 4:27 AM EST 01/28/2020 4:32 AM EST Narrative Resulting Agency Comment Spec In Lab Kevin Diaz MD CHEMISTRY ORDERABL ES [facility] [place] [address] from Last 3 Months or Most Recently Relevant to Health Maintenance Advance Directives * Attempt Cardiopulmonary Resuscitation - Inpatient (Latest Code Status on File) Date Activated Date Inactivated Comments 01/27/2020 1:43 AM 01/28/2020 2:48 PM Question Answer Comments Code Status decision made by: Patient Care Teams Basket Mender Relationship Specialty Start Date End Date Katie Tong APRN [address] [place] [address] PCP - General Family Medicine 01/28/20
--- OUTSIDE RECORDS SUMMARY | 2024-02-02 12:54 | XMS_ITS | Encounter Summary ---
Author Organization [facility] Address [facility] [place] [address] Care Team Providers Care Hitting Coach Name Role Phone RanKatie DUONG Primary Care Provider [phone] Encounter Details Date Type Department Care Team (Late st Contact Info) Description 06/22/2020 Telephone Cardiology at [address] [phone] Gaurav Massey MD [facility] [place] [address] Social History Tobacco Use Types Packs/Day Years [...] Telephone Encounter - Gaurav Massey MD - 06/22/2020 2:14 PM EDT I spoke with Ms. Su today to inform her that her insurance company is currently refusing topay for the zio patch monitor. I asked her to recall the frequency of her various symptoms. She states that three times in the past month, she has felt lightheaded and as if she were about to pass out (presyncope). She states that normally she does not feel palpitations unless she forgets to take her medication, but in the past several days, she has felt palpitations nearly every day. I am requesting a zio patch two week monitor to evaluate both her presyncope and her palpitations symptoms. Gaurav Massey MD [facility] Cardiac Electrophysiology 06/22/2020 2:16 PM documented in this encounter Plan of Treatment Not on file documented as of this encounter Visit Diagnoses Not on filedocumented in this encounter Care Teams Hitting Coach Relationship Specialty Start Date End Date Katie Tong, DIRECTOR STATISTICAL PROGRAMMING [address] [place] [address] PCP - General Family Medicine 01/28/20 documented as of this encounter
--- OUTSIDE RECORDS SUMMARY | 2024-02-02 12:54 | XMS_ITS | Encounter Summary ---
Author Organization [facility] [place] [address] Care Team Providers Care Auto Club Safety Program Coordinator Name Role Phone Ran Katie WATTERS Primary Care Provider [phone] Reason for Visit * Consultation (Routine) - Closed Specialty Diagnoses / Procedures Referred By Aleida peters Referred To Contact Dermatology Diagnoses Actinic keratosis Actinic Keratosis; New Patient-Notes Received Procedures Consult Marcelino Srivastava, [facility] [address] [place] [address] [facility] Dermatology [address] [place] [address] Referral ID Status Reason Start Date Expiration Date Visits Re quested Visits Authorized [id number] Closed 07/27/2021 07/27/2022 1 1 Encounter Details Date Type Department Care Team (Late st Contact Info) Description 10/28/2021 4:00 PM EDT Office Visit Dermatology at [facility] [address] [place] [address] Tati Reyes MD Actinic keratoses Social History Tobacco Use Types Packs/Day Years Used Date Smoking Tobacco: Former Cigarettes Smokeless Tobacco: Never Alcohol Use Standard Drinks/Week Comments Yes 2 (1 standard drink = 0.6 oz pur e alcohol) Sex and Gender Information Value Date Recorded Sex Assigned at Not on file Gender Identity Not on file Sexual Orientation Not on file documented as of this encounter Progress Notes * Tati Reyes MD - 10/28/2021 4:00 PM EDT Images from the original note were not included. DEPARTMENT OF DERMATOLOGY Medical Dermatology Clinic Note Provider: Tati Reyes MD Patient's preferred name Tasneem Preferred contact method for results [x]Phone []myD-H []Letter Detailed phone message OK? Yes Are there any other people with whom we may discuss your care? Past Medical History Date, location, treatment Melanoma No Dysplastic nevi No SCC No BCC No AKs Yes - UV Exposure & Protection Other relevant past medical history No Family History Details Melanoma No NMSC Yes - Other relevant family history No Social History Occupation: Hobbies: Other: Pre-Procedure Questions Details Allergy to lidocaine, epinephrine, Dermabond, chlorhexidine, or adhesives No Bleeding disorder or blood thinners No Implanted devices (Pacemaker, defibrillator, deep brain stimulator, cochlear implant) No History of Present Illness: Tasneem Su is a 56 y.o. Patient is referred to the clinic at [facility] of Marcelino Srivastava for an evaluation of the scalp. She reports a few scaly spots, one of which was biopsied and returned as an actinic keratosis. Review of Systems: General: Feeling well. Skin: No other skin concerns. Medications: Reviewed in eD-H Allergies: Reviewed in eD-H Skin Examination: Focused skin examination of the scalp was normal with the exception of the findings below. Assessment/Plan #. Actinic Keratoses - Ill-defined gritty papules on the hair part of the scalp. - Explained premalignant potential of these lesions. - Discussed treatment options (LN2, 5-FU) and their respective risks and benefits. - Patient elects to proceed with 5-FU treatment. - Start Rx 5-fluorouracil (Efudex) 5% solution: Apply a thin layer to affected areas on the scalp twice daily (morning and night) as tolerated for 3 weeks. - Reviewed expectations, typical reaction, and restrictions on light exposure during treatment. Patient understands that affected area will likely become red, irritated and tender during treatment and that this is a normal reaction. Discussed option to hold treatment for 1-2 days if inflammation becomes too intense or patient experiences discomfort. - Instructed patient to return to clinic for re-evaluation if lesion(s) does not resolve as expected with this treatment. Other: ??? N/A RTC: 4 months for AK follow up and FSE []Note routed to accredited legal secretary [x]Recall placed in scheduling system []Appointment scheduled at checkout Scribe attestation: MICHELLE Smith has performed the documentation for this encounter in the presence of and acting as a scribe for Tati Reyes MD. I performed the above scribed service and agree with the accuracy of the documentation in this encounter. Reviewed and signed by: Tati Reyes MD Dermatology [facility] Patient seen and evaluated with staff grade tamper: Mitesh Mojica MD Department of Dermatology [facility] * Mitesh Mojica MD - 10/28/2021 4:00 PM EDT I directly supervised the Dermatology resident during this office visit. The resident presented thehistory and physical exam to me. I then saw and examined this patient with the resident. We reviewed the history and pertinent details and I confirmed the physical findings. I agree with the details of the history and physical exam as documented in the resident's note. MITESH MOJICA MD Staff Physician documented in this encounter Plan of Treatment Not on file documented as of this encounter Visit Diagnoses Diagnosis Actinic keratoses Actinic keratosis documented in this encounter Care Teams Auto Club Safety Program Coordinator Relationship Specialty Start Date End Date Katie Tong APRN [address] [address] PCP - General Family Medicine 01/28/20 documented as of this encounter
--- OUTSIDE RECORDS SUMMARY | 2024-02-02 12:54 | XMS_ITS | Encounter Summary ---
[place] [address] Care Team Providers Care Security Infrastructure Engineer Name Role Phone RanKatie DUONG Primary Care Provider [phone] Encounter Details Date Type Department Care Team (Late st Contact Info) Description 06/23/2020 Telephone Cardiology at [address] [phone] Ara Escobedo, RN Social History Tobacco Use Types Packs/Day Years [...] encounter Miscellaneous Notes * Telephone Encounter - Stew Calabrese RN - 06/24/2020 5:[address] Massey's telephone note to pt on 06/22/2020 faxed to [facility] [place] @ [phone] with a confirmation of successful transmission. * Telephone Encounter - Ara Escobedo RN - 06/23/2020 4:42 PM EDT RTC to Mrs Su regarding her message to let her know that Dr Massey has written a note, and requested that it be sent to [employer] I spoke with her insurance company. Would you please be able to FAX my note from today, regarding Ms. Su's frequency of symptoms, to [phone]. If you can please reference her denied authorizatoin number, which I believe is: [phone]. thank you [phone] is the number, I think documented in this encounter Plan of Treatment Not on file documented as of this encounter Visit Diagnoses Not on filedocumented in this encounter Care Teams Security Infrastructure Engineer Relationship Specialty Start Date End Date Katie Tong APRN [address] [place] [address] PCP - General Family Medicine 01/28/20 documented as of this encounter
--- OUTSIDE RECORDS SUMMARY | 2024-02-02 12:54 | XMS_ITS | Encounter Summary ---
Author Organization [facility] [place] [address] Care Team Providers Care Professor Of Communication Name Role Phone CleopatraKatie allen DUONG Primary Care Provider [phone] Encounter Details Date Type Department Care Team (Late st Contact Info) Description 08/11/2022 10:20 AM EDT Office Visit Dermatology at [facility] [address] [place] [address] Stacey Holcomb MD [facility] [address] [address] Actinic keratoses Social History Tobacco Use Types [...] as of this encounter Progress Notes * Stacey Holcomb MD - 08/11/2022 10:20 AM EDT Images from the original note were not included. DEPARTMENT OF DERMATOLOGY [facility] Provider: Stacey Holcomb MD Patient's preferred name Tasneem Preferred contact method for results [x]Phone []myD-H []Letter Detailed phone message OK? Yes Are there any other people with whom we may discuss your care? No Past Medical History Date, location, treatment Melanoma No Dysplastic nevi No SCC No BCC No AKs Yes - 5FU to the scalp, and LN2 UV Exposure & Protection No Other relevant past medical history No Family History Details Melanoma No NMSC Yes - Other relevant family history No Social History Occupation: Hobbies: Other: Pre-Procedure Screening Details Allergy to lidocaine, epinephrine, Dermabond, chlorhexidine, or adhesives No Bleeding disorder or blood thinners No Implanted devices (Pacemaker, defibrillator, deep brain stimulator, cochlear implant) No History of Present Illness: Tasneem Lambr-Mehrdad is a 56 y.o. Patient returns to clinic today for an evaluation of multiple spots of concerns located on the scalp. Last visit at Dermatology: 03/03/2022 Last visit with this provider: 03/03/2022 Medications: Reviewed in eD-H Allergies: Reviewed in eD-H Skin Examination: Focused skin examination of the scalp was normal with the exception of the findings below. Assessment/Plan #. Actinic Keratoses - Ill-defined gritty papules on the vertex scalp x6. - Explained premalignant potential of these lesions. - Discussed treatment with cryotherapy. Patient elects to proceed with cryotherapy today. - Start Rx 5-fluorouracil (Efudex) 5% cream: Apply a thin layer to affected areas on the scalp twice daily (morning and night) as tolerated for 6 weeks. - Reviewed expectations, typical reaction, and restrictions on light exposure during treatment. Patient understands that affected area will likely become red, irritated and tender during treatment and that this is a normal reaction. Discussed option to hold treatment for 1-2 days if inflammation becomes too intense or patient experiences discomfort. Advised patient to call clinic if pain is excessive or infection is suspected. - Instructed patient to return to clinic for re-evaluation if lesion(s) does not resolve as expected with this treatment. - Instructed patient to return to clinic for re-evaluation if lesion(s) does not resolve as expected with this treatment. Procedure: Destruction of lesion(s) with cryotherapy (LN2). Location(s): As noted above. Number: 6 Discussed procedure and expectations, including risks and benefits. Verbal consent obtained. Treated with LN2. There were no complications; Patient tolerated the procedure well. Post-procedure expectations and wound care reviewed. Other: N/A RTC: PRN []Note routed to costumer assistant []Recall placed in scheduling system []Appointment scheduled at checkout Scribe attestation: MICHELLE Smith has performed the documentation for this encounter in the presence of and acting as a scribe for Satcey Holcomb MD. I performed the above scribed service and agree with the accuracy of the documentation in this encounter. Reviewed and signed by: Stacey Holcomb MD Dermatology [facility] Patient seen and evaluated with staff boat puller: Mitesh Mojica MD Dermatology [facility] * Mitesh Mojica MD - 08/11/2022 10:20 AM EDT I directly supervised the Dermatology resident [...] keratosis documented in this encounter Care Teams Professor Of Communication Relationship Specialty Start Date End Date Katie Tong, DUONG [address] [place] [address] PCP - General Family Medicine 01/28/20 documented as of this encounter
--- OUTSIDE RECORDS SUMMARY | 2024-02-02 12:54 | XMS_ITS | Encounter Summary ---
Author Organization [facility] Address [address] [place] [address] Care Team Providers Care Feeder Catcher Name Role Phone Unknown, Provider Primary Care Provider Unava ilable Unknown, Provider MD Unavailable Unavailable Encounter Details Date Type Department Care Team (Latest Contact Info) Description 03/10/2015 17:39 EST - 03/10/2015 23:59 EST Hospital Encounter [address] [address] Unknown, Provider, Discharge Disposition: Home or Self Care Social History Tobacco Use Types Packs/Day Years Used Date Smoking Tobacco: Never Assessed Comments Unknown Sex and Gender Information Value Date Recorded Sex Assigned at Not on file Legal Sex Female 18:39 EST Gender Identity Not on file Sexual Orientation Not on file documented as of this encounter Discharge Disposition Disposition Code Departure Means Destination Home or Self Retirement documented in this encounter Plan of Treatment Not on file documented as of this encounter Visit Diagnoses Not on filedocumented in this encounter Care Teams Feeder Catcher Relationship Specialty Start Date End Date Unknown, ProviderMD PCP - General 01/21/15 03/10/15 Unknown, MD Radha 01/21/15 03/16/15 documented as of this encounter
--- OUTSIDE RECORDS SUMMARY | 2024-02-02 12:54 | XMS_ITS | Encounter Summary ---
[place] [address] Care Team Providers Care [employer] Tube Bender Name Role Phone Katie Tong APRN Primary Care Provider [phone] Encounter Details Date Type Department Care Team (Latest Contact Info) Description 08/11/2022 Travel Social History Tobacco Use Types Packs/Day [...] on filedocumented in this encounter Care Teams [employer] Tube Bender Relationship Specialty Start Date End Date Katie Tong APRN [address] [place] [address] PCP - General Family Medicine 01/28/20 documented as of this encounter
--- OUTSIDE RECORDS SUMMARY | 2024-02-02 12:54 | XMS_ITS | Clinical Summary ---
Author Organization [facility] Address [address] [place] [address] Care Team Providers Care Columnist Name Role Phone AgustinFatimah GRADES 1 THRU 6 VISITING TEACHER Unavailable [phone] Katie Tong NP Primary Care Provider [phone] Social History Tobacco Use Types Packs/Day Years Used Date Smoking Tobacco: Never Assessed Comments Unknown Sex and Gender Information Value Date Recorded Sex Assigned at Not on file Legal Sex Female 18:39 EST Gender Identity Not on file Sexual Orientation Not on file Plan of Treatment Health Maintenance Due Date Last Done Comments Hepatitis C Screen 1965 Hepatitis B Vaccine (1 of 3 - 19+ 3-dose series) 09/18 COVID-19 Vaccine ( season) 2023 RSV Immunization ( o r 60+ Years) (1 - 1-dose 75+ series) 09/18/2038 Insurance [facility] Care Teams Columnist Relationship Specialty Start Date End Date Katie Tong NP [facility] [place] [address] PCP - General 06/13/21 Fatimah Velez NP 03/17/15
--- OUTSIDE RECORDS SUMMARY | 2024-02-02 12:54 | XMS_ITS | Encounter Summary ---
Author Organization [facility] [place] [address] Care Team Providers Care Director Of Billing Name Role Phone CleopatraKatie allen DUONG Primary Care Provider [phone] Reason for Visit * Auth/Cert Specialty Diagnoses / Procedures Referred By Contac t Referred To Contact Diagnoses AVB (atrioventricular block) findings consult Procedures EMERGENCY IPI Referral ID Status Reason Start Date Expiration Date Visits Re quested Visits Authorized [id number] 1 1 Encounter Details Date Type Department Care Team (Late st Contact Info) Description 01/27/2020 12:44 AM EST - 01/28/2020 12:42 PM [facility] Hospital Encounter [place] [address] Taran Mir MD [facility] [place] [address] Kevin Diaz MD [facility] [place] [address] AVB (atrioventricular block) Discharge Disposition: Home Social History Tobacco Use Types Packs/Day Years Used Date Smoking Tobacco: Former Cigarettes Smokeless Tobacco: Never Alcohol Use Standard Drinks/Week Comments Yes 2 (1 standard drink = 0.6 oz pur e alcohol) Sex and Gender Information Value Date Recorded Sex Assigned at Not on file Gender Identity Not on file Sexual Orientation Not on file documented as of this encounter Last Filed Vital Signs Vital Sign Reading [...] Mass Index 26.29 01/27/2020 12:56 AM EST documented in this encounter Discharge Summaries * Harleen Meadows PA - 01/28/2020 11:03 AM EST Images from the original note were not included. Discharge Summary Patient Name: Marisel Vargas Patient Age: 54 y.o. Language: Maori Race: White Ethnicity: Not nor Admit date: 01/27/2020 Discharge date and time: 01/28/2020 11:14 AM Attending Physician: Kevin Diaz MD Discharge Physician: Kevin Diaz MD Follow-up Recommendations for Providers: 1. Discharge weight 65.2 kg 2. Reduced dose metoprolol in the setting of 2:1 AV block; please monitor; 30 day event recorder still in place Inpatient Provider Contact Information: MD Harleen Cardona PA-C [phone] Discharge Diagnoses (Hospital Problems) and Secondary Diagnoses (Chronic Problems): Active Hospital Problems Diagnosis ??? AVB (atrioventricular block) Resolved Hospital Problems No resolved problems to display. There are no active non-hospital problems to display for this patient. Operations/Major Procedures: Operations: * No surgery found * Other Major Procedures: Echo: SUMMARY: 1. The left ventricular chamber size and wall thickness are normal. There is normal global left ventricular systolic function. The quantitative left ventricular ejection fraction by biplane Simeon's method is 64%. There are no left ventricular segmental wall motion abnormalities. Left ventricular diastolic function is normal. 2. Right ventricular chamber size, wall thickness, and systolic function are within normal limits. 3. There is normal bi-atrial size. The estimated pulmonary artery systolic pressure is 23 mmHg (assuming RA pressure 3 mm Hg). 4. The atria are normal in size. 5. There is no hemodynamically significantly valve disease. 6. See remainder of report for additional findings. No prior echo for comparison. History of Presentation: Marisel Vargas is a 54 y.o. female w/ hx of hypothyroidism, pernicious anemia, and PVC's who was[facility] due to high grade AVB noted on ambulatory monitor. ?? The patient reports episodes of lightheadedness and feeling hot since August. She states that the episodes initially occurred with exertion but lately started to occur at rest. She denies any chest pain, syncope, or palpitations. An ambulatory 30 day monitor was placed last week and the patient was contacted after episodes of 2nd degree AVB were noted. The patient states that the last episode of her symptoms was on Monday. ?? The patient denies any prior similar episodes. She denies any known cardiac history beside PVCs forwhich she takes metoprolol for the past 15 years. Patient's last dose of metoprolol was yesterday AM (morning of presentation). She denies any hx of lyme disease. ?? At OSH, the patient was noted to be hemodynamically stable and EKG showed NSR. An MPI done on 01/21/2020 showed an EF of 61% and no WMA. ?? On our encounter, the patient was noted to be comfortable and NAD and she denied any sx or cc. Hospital Course: #2:1 AV block, asymptomatic at present, hemodynamically stable Marisel Vargas is a 54 y.o. female with a PMH of hypothyroidism, pernicious anemia, and symptomatic PAC's on metoprolol tartrate who was transferred from [facility] due to 2:1 AVB noted on ambulatory monitor. She was admitted to . Telemetry was attached showing sinus rhythm. Home metoprolol dosing held. Troponin trended and remained negative. An echocardiogram was performed showing a preserved EF,no wall motion abnormalities and no hemodynamically significant valve disease. TSH WNL. Lyme titersnegative. EP consulted. As per consult note, suspect this dose has become too much for her on account of slower (age-related) hepatic metabolism of the drug +/- atrioventricular cora aging. Recommendation made for reduced dosing of metoprolol with the knowledge that ectopy could rise in exchange for freedom from heart block and orthostatic dizziness. The patient was restarted on metoprolol tartrate 25 mg bid, a 50% reduction. The 30 day event recorder is still in place with 3 additional weeks of monitoring. Functional and Cognitive Status: Ambulatory without chest pain or shortness of breath. No oxygen requirements. Important Studies and Lab Data: Labs: Lab Results Component Value Date WBC 4.1 01/28/2020 HGB 12.3 01/28/2020 HCT 36.6 01/28/2020 PLATELET 151 01/28/2020 Recent Labs 01/27/20 0219 INR 1.0 Lab Results Component Value Date NA 140 01/28/2020 K 4.1 01/28/2020 CL 107 01/28/2020 CO2 25 01/28/2020 BUN 9 01/28/2020 CREATININE 0.63 (L) 01/28/2020 Recent Labs 01/27/20 0219 TSH 1.21 Recent Labs 01/27/20 0219 HA1C 5.2 Recent Labs 01/27/20 1425 01/27/20 0853 01/27/20 0219 TROPONINT <0.01 <0.01 <0.01 Lab Results Component Value Date CHLPL 125 01/27/2020 HDL 68 01/27/2020 CHOLHDL 1.8 01/27/2020 TRIG 52 01/27/2020 LDLCHOL 47 01/27/2020 Results for CHELSI-MARISEL REYNA ( ) as of 01/28/2020 11:05 Ref. Range 01/27/2020 02:19 Lyme Antibody Latest Ref Range: Neg Neg Pending Studies and Lab Data: None Discharge Conditions/Prognosis: 2:1 AVB; reduced metoprolol dosing; stable at discharge home Discharge to: Home Updated Allergies/ADRs: No Known Allergies Immunizations Given this Hospitalization: There is no immunization history on file for this patient. Discharge Medications: Your Medications Continued medications with new dosing Dose Details metoprolol tartrate 25 mg Tab Commonly known as: Lopressor Take 1 tablet by mouth 2 times daily. What changed: ?? medication strength ?? how much to take 25 mg Quantity: 180 tablet Refills: 3 Continued medications, unchanged Dose Details cyanocobalamin (Vitamin B-12) 1,000 mcg/mL Soln Inject 1,000 mcg as directed every 30 days. 1,000 mcg Refills: 0 ibuprofen 600 mg Tab Commonly known as: Advil;Motrin Take 600 mg by mouth every 6 hours as needed for Pain. 600 mg Refills: 0 Synthroid 112 mcg Tab Take 112 mcg by mouth daily. Generic drug: levothyroxine 112 mcg Refills: 0 STOPPED Medications aspirin EC 81 mg Tbec atorvastatin 10 mg Tab Commonly known as: Lipitor Smoking Status at Discharge: Social History Tobacco Use Smoking Status Former Smoker ??? Types: Cigarettes Smokeless Tobacco Never Used Instructions Given to Patient at Discharge: There are no outpatient Patient Instructions on file for this admission. General Instructions Call your doctor if: Chest pain, shortness of breath, pain or swelling in legs occurs. If you have non-emergent questions between now and the time of your follow up appointments: During 8am-5pm Monday through Monday call [phone] to speak with a nurse in the cardiology clinic All other times call [phone] and ask to speak to the percussion teacher stationary plant operators. Return to work: Resume usual activities as tolerated. Driving: Resume if driving prior. Follow up Appointments: PCP Katie Tong APRN [phone]; we are waiting for a call back to schedule follow up; if this appointment is not made before you leave, please call and request an appointment for a post hospital check within 7-[address] Cabral at [facility] March 04, 2020 at 9:40 am Home oxygen therapy: N/A Arrangements for VNA/home care: N Discharge References/Attachments None Harleen Meadows PA-C 01/28/2020 documented in this encounter Discharge Instructions * Discharge Instructions* Elham Ventura APRN - 01/28/2020 12:13 PM EST Call your doctor if: Chest pain, shortness of breath, pain or swelling in legs occurs. If you have non-emergent questions between now and the time of your follow up appointments: During 8am-5pm Monday through Monday call [phone] to speak with a nurse in the cardiology clinic All other times call [phone] and ask to speak to the percussion teacher stationary plant operators. Return to work: Resume usual activities as tolerated. Driving: Resume if driving prior. Follow up Appointments: PCP Moses Koo PA-C [phone] February 05, 2020 at 10:[address] Cabral at [facility] March 04, 2020 at 9:40 am Home oxygen therapy: N/A Arrangements for VNA/home care: N documented in this encounter Medications at Time of Discharge Medication Sig Dispensed Refills Start Date End Date metoprolol tartrate (Lopressor) 25 mg Tablet Take 1 tablet by mouth 2 times daily. 180 tablet 3 01/28/2020 levothyroxine (Synthroid) 112 mcg Tablet Take 112 mcg by mouth daily. cyanocobalamin, Vitamin B-12, 1,000 mcg/mL Solution Inject 1,000 mcg as directed every 30 days. ibuprofen (Advil;Motrin) 600 mg Tablet Take 600 mg by mouth every 6 hours as needed for Pain. documented as of this encounter Progress Notes * Kenya Souza RN - 01/28/2020 12:22 PM EST Reviewed discharge summary with patient. Pt verbalized understanding, questions answered. IV removed. Pt in room awaiting ride. * Kevin Diaz MD - 01/28/2020 10:02 AM EST Images from the original note were not included. 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 AVB (atrioventricular block) Resolved Hospital Problems No resolved problems to display. Interval History: Patient resting comfortably. No chest pain, shortness of breath, palpitations, lightheadedness, dizziness, pre-syncope, syncope. No events on telemetry. Lyme titers negative. EP consulted. Recommended dose reduction of metoprolol, 75%. Communicated with patient who requested a 50% reduction given severity of palpitations historically. We felt this was a reasonable first step with discussion about close monitoring of symptoms and with an additional 3 weeks of event monitoring in place. Review of Systems: Review of Systems Constitutional: Positive for fatigue. Negative for diaphoresis. Respiratory: Negative for chest tightness and shortness of breath. Cardiovascular: Negative for chest pain, palpitations and leg swelling. Neurological: Negative for dizziness, syncope and light-headedness. All other systems reviewed and are negative. Telemetry: HR: Heart Rate: [58-76] sinus rhythm Meds: Scheduled Meds: ??? aspirin EC 81 mg Oral Daily ??? atorvastatin 10 mg Oral QPM ??? levothyroxine 112 mcg Oral Daily ??? sodium chloride 0.9 % (flush) 5 mL Intravenous BID ??? sodium chloride 0.9 % (flush) 5 mL Intravenous BID ??? heparin (porcine) 5,000 Units Subcutaneous Q12H MARLENA ??? metoprolol tartrate 25 mg Oral Q12H MARLENA Continuous Infusions: PRN Meds:sodium chloride 0.9 % (flush), lidocaine, nitroGLYcerin, sodium chloride 0.9 % (flush), acetaminophen Physical Exam: Vital Signs: Last value Range last 24 hrs Temperature Temp: 36.7 ??C (98.1 ??F) Temp: [36.6 ??C (97.9 ??F)-36.7 ??C (98.1 ??F)] Heart Rate Heart Rate: 76 Heart Rate: [58-123] Blood Pressure BP: 102/75 BP: (90-105)/(65-75) Respiratory Rate Resp: 29 Resp: [13-29] SpO2 SpO2: 98 % SpO2: [96 %-99 %] Patient Vitals for the past 168 hrs: Weight 01/28/20 0524 65.2 kg (143 lb 11.8 oz) 01/27/20 0056 66.5 kg (146 lb 9.7 oz) Intake/Output Summary (Last 24 hours) at 01/28/2020 1002 Last data filed at 01/28/2020 0800 Gross per 24 hour Intake 1002 ml Output 1150 ml Net -148 ml Physical Exam Constitutional: She is oriented to person, place, and time. She appears well- developed and well-nourished. No distress. HENT: Head: Normocephalic and atraumatic. Neck: Normal range of motion. Neck supple. No JVD present. Cardiovascular: Normal rate, regular rhythm and normal heart sounds. No murmur heard. Pulmonary/Chest: Effort normal and breath sounds normal. She has no rales. Abdominal: Soft. Bowel sounds are normal. She exhibits no distension. There is no abdominal tenderness. Musculoskeletal: Normal range of motion. General: No edema. Neurological: She is alert and oriented to person, place, and time. Skin: Skin is warm and dry. She is not diaphoretic. Psychiatric: She has a normal mood and affect. Her behavior is normal. Lab Comments: Recent Labs 01/28/2042601/27/20218 WBC 4.1 5.3 HGB 12.3 11.3* HCT 36.6 33.1* PLATELET 151 163 Recent Labs 01/27/20218 INR 1.0 Recent Labs 01/28/2042601/27/20218 NA 140 142 K 4.1 3.7 CL 107 107 CO2 25 25 BUN 9 14 CREATININE 0.63* 0.65* Recent Labs 01/27/20218 AST 16 ALT 15 ALKPHOS 65 BILITOT 0.2 BILIDIR 0.1 Recent Labs 01/28/2042601/27/20218 CALCIUM 9.0 8.8 MAGNESIUM -- 0.81 PHOS -- 3.6 Recent Labs 01/27/20 1425 01/27/20 0853 01/27/20218 TROPONINT <0.01 <0.01 <0.01 Pertinent Radiographic/Diagnostic Results: I have independently visualized the following studies: ECG: SR, non-specific inferior t wave abnl Assessment: Marisel Vargas is a 54 y.o. female w/ hx of hypothyroidism, pernicious anemia, and PAC's who was transferred from [facility] due to 2:1 AVB noted on ambulatory monitor felt likely in the setting of beta aakash use given no events on telemetry with reduced dosing. Plan: #2:1 AV block, asymptomatic at present, hemodynamically stable Telemetry monitoring revealed no recurrent AV block since BB dose reduced Troponin negative x2 sets TSH 1.21 Lyme titers negative Metoprolol initially held, now restarted metoprolol at a lower dose Echo without structural disease Appreciate EP recs, no indication for EPS at this time [address], has 3 additional weeks of monitoring ?? HM: Full Code Heart healthy diet DVT ppx - ambulatory This patient was discussed with Kevin Diaz MD. Harleen Meadows PA-C 01/28/2020 Cardiology Attending Note I interviewed and examined the patient during comprehensive bedside rounds. I concur with the summary of interval events, active hospital-focused problem list and plan of care as described in the note below. I personally reviewed the medications, laboratory results, treatment decisions and updated the patient. Kevin Diaz MD, FACP, FACC Section of Cardiovascular Medicine [facility] [employer] Grinderproduction tester [facility] [employer] [facility] This patient meets or has met medical criteria to require an inpatient level of care, i.e. a minimum of two midnights in the hospital with multiple complex problems. * Romelia Mckeon RN - 01/28/2020 3:05 AM EST Marisel Vargas is AOx4 with no complaints of pain or SOB. NSR on tele with tachycardia noted with ambulation (up to 135). Patient rested in bed comfortably overnight with VSS. Shift was otherwise uneventful; will continue to monitor. * Kevin Diaz MD - 01/27/2020 10:18 AM EST Images from the original note were not included. 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 AVB (atrioventricular block) Resolved Hospital Problems No resolved problems to display. Interval History: Patient resting comfortably. No chest pain, shortness of breath, palpitations, lightheadedness, dizziness, pre-syncope, syncope. No events on telemetry. Lyme titers pending. EP consult. Review of Systems: Review of Systems Constitutional: Positive for fatigue. Negative for diaphoresis. Respiratory: Negative for chest tightness and shortness of breath. Cardiovascular: Negative for chest pain, palpitations and leg swelling. Neurological: Negative for dizziness, syncope and light-headedness. All other systems reviewed and are negative. Telemetry: HR: Heart Rate: [68-76] sinus rhythm Meds: Scheduled Meds: ??? aspirin EC 81 mg Oral Daily ??? atorvastatin 10 mg Oral QPM ??? levothyroxine 112 mcg Oral Daily ??? sodium chloride 0.9 % (flush) 5 mL Intravenous BID ??? sodium chloride 0.9 % (flush) 5 mL Intravenous BID Continuous Infusions: PRN Meds:sodium chloride 0.9 % (flush), lidocaine, nitroGLYcerin, sodium chloride 0.9 % (flush), acetaminophen Physical Exam: Vital Signs: Last value Range last 24 hrs Temperature Temp: 36.6 ??C (97.9 ??F) Temp: [36.5 ??C (97.7 ??F)-36.6 ??C (97.9 ??F)] Heart Rate Heart Rate: 76 Heart Rate: [68-76] Blood Pressure BP: 116/86 BP: (99-120)/(70-86) Respiratory Rate Resp: 15 Resp: [13-19] SpO2 SpO2: 98 % SpO2: [97 %-100 %] Patient Vitals for the past 168 hrs: Weight 01/27/20 0056 66.5 kg (146 lb 9.7 oz) Intake/Output Summary (Last 24 hours) at 01/27/2020 1024 Last data filed at 01/27/2020 0657 Gross per 24 hour Intake 0 ml Output 400 ml Net -400 ml Physical Exam Constitutional: She is oriented to person, place, and time. She appears well- developed and well-nourished. No distress. HENT: Head: Normocephalic and atraumatic. Neck: Normal range of motion. Neck supple. No JVD present. Cardiovascular: Normal rate, regular rhythm and normal heart sounds. No murmur heard. Pulmonary/Chest: Effort normal and breath sounds normal. She has no rales. Abdominal: Soft. Bowel sounds are normal. She exhibits no distension. There is no abdominal tenderness. Musculoskeletal: Normal range of motion. General: No edema. Neurological: She is alert and oriented to person, place, and time. Skin: Skin is warm and dry. She is not diaphoretic. Psychiatric: She has a normal mood and affect. Her behavior is normal. Lab Comments: Recent Labs 01/27/20218 WBC 5.3 HGB 11.3* HCT 33.1* PLATELET 163 Recent Labs 01/27/20218 INR 1.0 Recent Labs 01/27/20218 NA 142 K 3.7 CL 107 CO2 25 BUN 14 CREATININE 0.65* Recent Labs 01/27/20218 AST 16 ALT 15 ALKPHOS 65 BILITOT 0.2 BILIDIR 0.1 Recent Labs 01/27/20218 CALCIUM 8.8 MAGNESIUM 0.81 PHOS 3.6 Recent Labs 01/27/20 0853 01/27/20218 TROPONINT <0.01 <0.01 Pertinent Radiographic/Diagnostic Results: I have independently visualized the following studies: ECG: SR, WNL, wandering baseline limiting ability to fully assess ST segments Assessment: Marisel Sam is a 54 y.o. female w/ hx of hypothyroidism, pernicious anemia, and PAC's who was transferred from [facility] due to 2:1 AVB noted on ambulatory monitor. Plan: #2:1 AV block, asymptomatic at present, hemodynamically stable Admit to cardiology Telemetry monitoring; no events currently Troponin negative x2 sets TSH 1.21 Lyme titers pending D/c metoprolol; will likely restart at a reduced dose as d/w EP Echo EP consult appreciated, await recs ?? HM: Full Code Heart healthy diet DVT ppx - ambulatory This patient was discussed with Kevin Diaz MD. Harleen Meadows PA-C 01/27/2020 Cardiology Attending Note I interviewed and examined the patient during comprehensive bedside rounds. I concur with the summary of interval events, active hospital-focused problem list and plan of care as described in the note below. I personally reviewed the medications, laboratory results, treatment decisions and updated the patient. Kevin Diaz MD, FACP, FACC Section of Cardiovascular Medicine [facility] [employer] Grinder[employer] tester [facility] [employer] [facility] This patient meets or has met medical criteria to require an inpatient level of care, i.e. a minimum of two midnights in the hospital with multiple complex problems. documented in this encounter H&P Notes * Gustavo Prescott MD - 01/27/2020 1:43 AM EST Cardiology History and Physical Patient Name: Marisel Vargas Date of : 1965 Age: 54 y.o. Hospital Admit Date: 01/27/2020 PCP: Lee Gupta MD Presenting Diagnosis/Chief Complaint: High Grade AVB Active Problem List: Active Hospital Problems Diagnosis ??? AVB (atrioventricular block) Resolved Hospital Problems No resolved problems to display. History of Present Illness: BEATRIS Vargas is a 54 y.o. female w/ hx of hypothyroidism, pernicious anemia, and PVC's who wastransferred from [facility] due to high grade AVB noted on ambulatory monitor. The patient reports episodes of lightheadedness and feeling hot since August. She states that the episodes initially occurred with exertion but lately started to occur at rest. She denies any chest pain, syncope, or palpitations. An ambulatory 30 day monitor was placed last week and the patient was contacted after episodes of 2nd degree AVB were noted. The patient states that the last episode of her symptoms was on Monday. The patient denies any prior similar episodes. She denies any known cardiac history beside PVCs forwhich she takes metoprolol for the past 15 years. Patient's last dose of metoprolol was yesterday AM (morning of presentation). She denies any hx of lyme disease. At OSH, the patient was noted to be hemodynamically stable and EKG showed NSR. An MPI done on 01/21/2020 showed an EF of 61% and no WMA. On our encounter, the patient was noted to be comfortable and NAD and she denied any sx or cc. Past Medical History: Past Medical History: Diagnosis Date ??? Anemia ??? Hypothyroidism ??? PVC (premature ventricular contraction) Surgical History/Problems: Past Surgical History: Procedure Laterality Date ??? ARTHROPLASTY ??? SECTION Significant Family History: History reviewed. No pertinent family history. Social History: Social History Socioeconomic History ??? Marital status: Not on file Spouse name: Not on file ??? Number of children: Not on file ??? Years of education: Not on file ??? Highest education level: Not on file Occupational History ??? Not on file Social Needs ??? Financial resource strain: Not on file ??? Food insecurity Worry: Not on file Inability: Not on file ??? Transportation needs Medical: Not on file Non-medical: Not on file Tobacco Use ??? Smoking status: Former Smoker Types: Cigarettes ??? Smokeless tobacco: Never Used Substance and Sexual Activity ??? Alcohol use: Not Currently ??? Drug use: Not on file ??? Sexual activity: Not on file Lifestyle ??? Physical activity Days per week: Not on file Minutes per session: Not on file ??? Stress: Not on file Relationships ??? Social connections Talks on phone: Not on file Gets together: Not on file Attends moravian service: Not on file Active member of club or organization: Not on file Attends meetings of clubs or organizations: Not on file Relationship status: Not on file ??? Intimate partner violence Fear of current or ex partner: Not on file Emotionally abused: Not on file Physically abused: Not on file Forced sexual activity: Not on file Other Topics Concern ??? Not on file Social History Narrative ??? Not on file REVIEW OF SYSTEMS: General ROS: No fatigue or weakness. Psychological: no anxiety / Depression Ophthalmic: No blurred vision or watery or red eyes. ENT: Negative for ear discharge or running nose or cold or throat swelling. Allergy: negative for itchy/watery eyes Heme: Negative for bleeding, bruising, fatigue, jaundice, night sweats Endocrine: negative for polydipsia/polyuria/ heat intolerance Respiratory: As in HPI CVS: As in HPI GI: No abd pain, change in bowel habits, or black or bloody stools Genitourinary: No dysuria, trouble voiding, or hematuria MSK: negative for joint pain, joint stiffness or joint swelling Neurological: No TIA or stroke symptoms PHYSICAL EXAM: Last set of vital signs: BP 120/84 (BP Location (NBP): Left arm, Patient Position: Lying) Pulse 68 Temp 36.5 ??C (97.7 ??F) (Oral) Resp 13 Ht 157.5 cm (5' 2) Wt 66.5 kg (146 lb 9.7 oz) SpO2 100% BMI 26.81 kg/m?? Gen/Constitutional: Comfortable and NAD HEENT: IVETH, EOMI, No conjunctival pallor or scleral icterus. Cardiac/CVS: RRR. NL s1, s2. No s3 or s4. No MRG. No JVD Pulm/Chest: CTAB Abd/GI: Soft. No distention or tenderness. Musculoskeletal: no peripheral edema . Pulses palpable B/L, no calf tenderness, swelling, or erythema. 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 No sensory loss. No gait ataxia. Skin/Integumentary: No rash A&P: Marisel Vargas is a 54 y.o. female w/ hx of hypothyroidism, pernicious anemia, and PVC's who [facility] due to high grade AVB noted on ambulatory monitor. #High Grade AVB, asymptomatic at present, hemodynamically stable, NSR at present Admit to cardiology Telemetry monitoring Keep pacer pads in place as a precautionary measure Trend troponin Admission EKG Labs including TSH, BMP, and lyme titers D/c metoprolol C/w rest of home meds Echo in AM EP consult in AM HM: Full Code Heart healthy diet DVT ppx, SCD for now (possible PPM in AM). Gustavo Prescott MD Provider #: [id number]/27/2020 documented in this encounter Miscellaneous Notes * Consult Note - Ritika Sin MD - 01/27/2020 9:42 AM EST Images from the original note were not included. EP Consult Note Patient info: Name: Marisel Vargas : 1965 PCP: Lee Gupta MD PCP phone number: [phone] Date of Admission: 01/27/2020 ( Hospital Day 0 days ) Attending:Kevin Diaz MD ID: Marisel Vargas is a 54 y.o. female with a history of hypothyroidism, pernicious anemia and PACs who was transferred from [facility] after being found to have high-degree AV block on an ambulatory monitor. HPI: Patient reports she has had near-syncopal episode where she feels a flutter in her chest with associated lightheadedness that started in August. These events would typically occur on exertion after cycling for 30-45 minutes that would happen up to three times per week, however, more recently she has also had 2 episodes that have occurred at rest. The events last 1-2 minutes, during which, she typically squats or kneels, which she feels helps her symptoms past. She denies any true syncope or loss of consciousness with these events. She was put on a 30-day ambulatory monitor and was found to havehigh-grade AV block when symptomatic at rest last Monday. Patient has a history of symptomatic PACs, for which she was put on metoprolol succinate 50mg bid, which she has been on for the past 15 years. She denies any recent changes in her dose in the past 10 years. Her last dose of metoprolol was on 12/13 AM. At [facility], she was noted to be hemodynamically stable and EKGs in NSR. MPI done on 01/21/20 demonstrated an EF of 61% without WMAs or arrythmias. Overnight, she has not had a recurrent event of her 2:1 block since holding her metoprolol. At the time of our interview, she does endorse mild chest tightness and feeling fluttery at baseline (while in NSR), she denies, shortness of breath, cough, nausea,vomiting, abdominal pain, constipation, diarrhea, dysuria, numbness or tingling. She does report removing several ticks from her body over the summer, but denies that any were on for greater than 48-72h or rashes. She has a history of hypothyroidism, on levothyroxine 112mcg qd, no recent dose changes in the past year. Family history notable for her father and paternal grandmother both receiving pacemakers. Denies any current tobacco use, drinks ~2 glasses of wine per week. Review of Systems Per H&P PMH Past Medical History: Diagnosis Date ??? Anemia ??? Hypothyroidism ??? PAC (premature atrial contraction) PSH Past Surgical History: Procedure Laterality Date ??? ARTHROPLASTY ??? CARPAL TUNNEL RELEASE x2 ??? SECTION x2 ??? CYST REMOVAL Left Family History Family History Problem Relation Age of Onset ??? Pacemaker Father 50 late 50s ??? Transient Ischemic Attack Maternal Grandmother ??? Pacemaker Paternal Grandmother Social History Social History Socioeconomic History ??? Marital status: Not on file Spouse name: Not on file ??? Number of children: Not on file ??? Years of education: Not on file ??? Highest education level: Not on file Occupational History ??? Not on file Social Needs ??? Financial resource strain: Not on file ??? Food insecurity Worry: Not on file Inability: Not on file ??? Transportation needs Medical: Not on file Non-medical: Not on file Tobacco Use ??? Smoking status: Former Smoker Types: Cigarettes ??? Smokeless tobacco: Never Used Substance and Sexual Activity ??? Alcohol use: Yes Alcohol/week: 2.0 standard drinks Types: 2 Glasses of wine per week ??? Drug use: Never ??? Sexual activity: Yes Partners: Male Lifestyle ??? Physical activity Days per week: Not on file Minutes per session: Not on file ??? Stress: Not on file Relationships ??? Social connections Talks on phone: Not on file Gets together: Not on file Attends moravian service: Not on file Active member of club or organization: Not on file Attends meetings of clubs or organizations: Not on file Relationship status: Not on file ??? Intimate partner violence Fear of current or ex partner: Not on file Emotionally abused: Not on file Physically abused: Not on file Forced sexual activity: Not on file Other Topics Concern ??? Not on file Social History Narrative Lives in [place] with her . 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 aspirin EC 81 mg Oral Daily ??? atorvastatin 10 mg Oral QPM ??? levothyroxine 112 mcg Oral Daily ??? sodium chloride 0.9 % (flush) 5 mL Intravenous BID ??? sodium chloride 0.9 % (flush) 5 mL Intravenous BID sodium chloride 0.9 % (flush), lidocaine, nitroGLYcerin, sodium chloride 0.9 % (flush), acetaminophen Objective: Vitals Last value Range last 24 hrs Temperature Temp: 36.6 ??C (97.9 ??F) Temp: [36.5 ??C (97.7 ??F)-36.6 ??C (97.9 ??F)] Heart Rate Heart Rate: 76 Heart Rate: [68-76] Blood Pressure BP: 116/86 BP: (99-120)/(70-86) Art Line BP BP (Arterial Line): -- MAP (NBP): [80 mmHg-95 mmHg] Respiratory Rate Resp: 15 Resp: [13-19] SpO2 SpO2: 98 % SpO2: [97 %-100 %] Oxygen Delivery Oxygen Therapy O2 Device: None (Room air) Intake/Output Summary (Last 24 hours) at 01/27/2020 1008 Last data filed at 01/27/2020 0657 Gross per 24 hour Intake 0 ml Output 400 ml Net -400 ml Patient Vitals for the past 168 hrs: Weight 01/27/20 0056 66.5 kg (146 lb 9.7 oz) Admit wt: 66.5 kg Physical Exam: Gen: in bed in NAD. HEENT: anicteric, EOMI intact, CV: RRR, soft 1/6 systolic murmur heard best at LUSB Resp: CTAB, no crackles/wheezes/ronchi, normal work of breathing Abd: normal bowel sounds, soft, non-tender to palpation, no rebound or guarding Ext: 2+ distal pulses, no pedal edema Neuro: no focal deficits noted, moves all extremities spontaneously Psych: cooperative. Skin: no rashes, lesions, or ulcerations noted Lines/Drains/Airways Lines: Peripheral IV Labs: Recent Labs 01/27/20218 WBC 5.3 HGB 11.3* HCT 33.1* PLATELET 163 MCV 89.5 Recent Labs 01/27/20218 NA 142 CL 107 CO2 25 K 3.7 MAGNESIUM 0.81 PHOS 3.6 CALCIUM 8.8 BUN 14 CREATININE 0.65* LFTs Recent Labs 01/27/20218 PROT 6.0* ALBUMIN 3.9 AST 16 ALT 15 ALKPHOS 65 BILITOT 0.2 BILIDIR 0.1 Coags Recent Labs 01/27/20218 INR 1.0 PT 11.6 PTT 30 Cardiac Enzymes Recent Labs 01/27/20 0853 01/27/20218 TROPONINT <0.01 <0.01 PROBNP -- 150* Endocrine Recent Labs 01/27/20218 TSH 1.21 No results for input(s): POCGLU in the last 168 hours. Heme No results for input(s): LDH, HAPTOGLOBIN, URICACID in the last 168 hours. ABG (Arterial Blood Gas) No results found for: PHART, PO2ART, FGH6QHZ, [id number] Microbiology: Microbiology Results (Last 30 days) Procedure Component Value Units Date/Time COVID-19 PCR [[id number]] Collected: 01/27/20202 Lab Status: Final result Specimen: Nasopharyngeal Swab Updated: 01/27/20453 Rapid SARS-CoV-2 RNA Not Detected Comment: This result should be interpreted in combination with the clinical observations, patient history and epidemiological information. For testing of asymptomatic individuals, assay performance characteristics and clinical utility have not been evaluated. Testing for SARS-CoV-2 (Severe acute respiratory syndrome coronavirus 2, formerly known as 2019 novel coronavirus or 2019-nCoV) to aid in the diagnosis of COVID-19 is performed using the Simplexa COVID-19 Direct Assay by [facility] as authorized by the FDA issued Emergency Use Authorization (EUA). This assay is intended for In-vitro Diagnostic (IVD) use with nasopharyngeal swabs collected from individuals meeting the CDC criteria for testing. The assay is performed based on the instructions for use and additional guidance provided by the FDA. Testing is performed in the Microbiology Laboratory within the Department of Pathology and Laboratory Medicine at [facility], certified under the Clinical Laboratory Improvement Amendments of 1988 (CLIA), 42 U.S.C. section 263a, to perform high complexity tests. Assay performance has been verified according to clinical laboratory regulatory requirements. Test results are provided above. A result of Not Detected indicates that the viral RNA target is not present but does not preclude SARS-CoV-2 infection. False negative results may occur if a specimen is improperly collected, transported or handled; if amplification inhibitors are present; or if inadequate numbers of viral particles are present in the specimen. A result of Detected suggests a current or recent infection and the patient is presumed to be infected. Positive and negative predictive values for this test are highly dependent on disease prevalence. A result of Invalid indicates the inability to conclusively determine the presence or absence of SARS-CoV-2 RNA in the sample which can be due to a variety of factors. Recollection is recommended in the case of an invalid result. CDC COVID-19 criteria for testing on human specimens and clinical management guidance information are available at the CDC Coronavirus Disease 2019 (COVID-19) webpage under Information for Healthcare Professionals (https://www.cdc.gov/coronavirus/2019-ncov/hcp/index.html). 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 Medications Scheduled Meds: ??? aspirin EC 81 mg Oral Daily ??? atorvastatin 10 mg Oral QPM ??? levothyroxine 112 mcg Oral Daily ??? sodium chloride 0.9 % (flush) 5 mL Intravenous BID ??? sodium chloride 0.9 % (flush) 5 mL Intravenous BID Continuous Infusions: PRN Meds:.sodium chloride 0.9 % (flush), lidocaine, nitroGLYcerin, sodium chloride 0.9 % (flush), acetaminophen Assessment & Plan: Marisel Vargas is a 54 y.o. female with a history of hypothyroidism, pernicious anemia and PVCs who was transferred from [facility] after being found to have high-degree AV block on an ambulatory monitor. This is a 54yo female with a history of hypothyroidism and PVCs, on metoprolol succinate 50mg bid for the past 15 years, who presents with symptomatic high- grade AV block that has occurred with both exertion and rest. She has had a recent MPI on 01/20, that demonstrated an EF of 61% without WMAs or arrythmias. Overnight, she has not had a recurrent event of her 2:1 block since holding her metoprolol. It is likely that these episodes are due to her home-dose of metoprolol being too high for her, given her metabolism has likely decreased over the past 15 years. Would recommend decreasing her home BB to metoprolol succinate 25mg daily. Thyroid studies have returned wnl. Lyme studies are currently pending. Otherwise, will anticipate doing a brisk-walk test while inpatient this afternoon to assess if her high-grade AV block recurs on exertion. #High Grade AV block --decrease to metoprolol succinate 25mg qd --continue 30-day ambulatory monitor while on decreased dose of metoprolol --Brisk walk test while inpatient --f/u lyme Ab #Routine Diet: Daily Healthy Menu Choices/Cardiac diet ([facility]-Diet) Code Status: Attempt Cardiopulmonary Resuscitation - Inpatient Dispo: Pending clinical course Ritika Sin MD Internal Medicine, PGY-2 EP Consults, #[id number] 01/27/20 10:08 AM Associated attestation - Cole Serrano MD - 01/27/2020 3:02 PM EST Cardiac Electrophysiology Attending Addendum: The patient was seen, interviewed and examined by me, and Dr. Painter' s note above was reviewed by me and agreed with. Specifically, the pertinent diagnoses and recommendations were discussed withme. Patient w/ negative dromotropy to the point of intermittent and symptomatic 2:1 atrioventricular block on metoprolol succinate 50 mg po BID which she has been on for 15 years. I now suspect this d ose has become too much for her on account of slower (age-related) hepatic metabolism of the drug +/- atrioventricular cora aging. I find no evidence of subnodal heart block. I don't find sufficientevidence to justify EPS at this time. Recommend 75% reduction of metoprolol from 50 mg po BID to 25mg po daily. Patient advised her HR and BP and potentially ambient ectopy will all rise in exchangefor freedom from heart block and orthostatic dizziness. Continue 30 day ambulatory event monitoringpost change. Will sign off for EP at th is juncture but please reconsult in event of new findings/questions or positive Lyme titers. Cole Serrano MD, PhD, [facility] Cardiac Electrophysiology documented in this encounter Plan of Treatment Not on file documented as of this encounter Procedures Procedure Name Priority Date/Time Associated Diagnosis Comments EKG 12-LEAD Routine 01/28/2020 7:02 AM EST AVB (atrioventricular block) HC VENIPUNCTURE Routine 01/28/2020 4:27 AM EST HEMOGRAM Routine 01/28/2020 4:27 AM EST DIFFERENTIAL, AUTOMATED Routine 01/28/20 20 4:27 AM EST HC CBC,PLT & AUTO DIFF Routine 0 4:27 AM EST HC VENIPUNCTURE STAT 01/27/2020 2:25 PM EST ECHO COMPLETE Routine 01/27/2020 10:15 AM EST AVB (atrioventricular block) HC VENIPUNCTURE STAT 01/27/2020 8:53 AM EST HC LYME DISEASE, LEYDA Routine 0 2:19 AM EST HEMOGRAM Routine 01/27/2020 2:19 AM EST DIFFERENTIAL, AUTOMATED Routine 01/27/20 20 2:19 AM EST HC PARTIAL THROMBOPLASTIN TIME Routine 01/27/2020 2:19 AM EST HC PROTHROMBIN TIME Routine 01/27/2020 2 :19 AM EST HC VENIPUNCTURE Routine 01/27/2020 2:19 AM EST HC TROPONIN T STAT 01/27/2020 2:19 AM EST HC THYROID STIMULATING HORMONE, SERUM Routine 01/27/2020 2:19 AM EST HC PHOSPHORUS, SERUM Routine 01/27/2020 2:19 AM EST HC PROBNP Routine 01/27/2020 2:19 AM EST HC MAGNESIUM, SERUM Routine 01/27/2020 2 :19 AM EST HC HEMOGLOBIN A1C Routine 01/27/2020 2:1 9 AM EST HEPATIC FUNCTION PANEL Routine 0 2:19 AM EST LIPID PANEL (REFLEX DIRECT LDL) Routine 01/27/2020 2:19 AM EST BASIC METABOLIC PANEL Routine 01/27/2020 2:19 AM EST EKG 12-LEAD Routine 01/27/2020 2:12 AM EST AVB (atrioventricular block) RAPID COVID-19 PCR ([facility]) Routine 01/27/2020 2:03 AM EST documented in this encounter Results * EKG 12 Lead (01/28/2020 7:02 AM EST) Ventricular rate 72 BPM MUSE SYSTEM Atrial Rate 72 BPM MUSE SYSTEM P-R Interval 138 ms MUSE SYSTEM QRS Duration 80 ms MUSE SYSTEM Q-T Interval 406 ms MUSE SYSTEM QTC Calculated (Bezet) 444 ms MUSE SYSTEM Calculated P Ona 59 degrees MUSE SYSTEM Calculated R Ona 2 degrees MUSE SYSTEM Calculated T Ona -5 degrees MUSE SYSTEM INTERPRETATION Normal sinus rhythm Nonspecific ST abnormality Borderline ECG When compared with ECG of 27-JAN-2020 02:12, Criteria for Septal infarct are no longer Present I personally reviewed the tracing and edited the fellows interpretation Confirmed by fellow Saurabh King ([id number]) on 01/28/2020 10:09:17 AM Confirmed by MD LLOYD, SEBASTIEN ([id number]) on 01/28/2020 12:06:26 PM MUSE SYSTEM 01/28/2020 7:02 AM EST 01/28/2020 12:06 PM EST Kevin Diaz MD ECG ORDERABLES MUSE SYSTEM * Differential, Automated (01/28/2020 4:27 AM EST) Pathologist [facility] Neutrophil % 43.2 % [facility] Neutrophil Absolute 1.76 1.70 - 6.10 x10(3)/[facility] Lymph % 43.4 % [facility] Lymphocytes Abs 1.8 0.9 - 3.2 x10(3)/[facility] Monocyte % 6.6 % [facility] Monocyte Abs 0.3 0.3 - 0.9 x10(3)/[facility] Eos % 6.1 % [facility] Eosinophils Abs 0.2 0.0 - 0.4 x10(3)/[facility] Basophil % 0.5 % [facility] Baso Absolute 0.0 0.0 - 0.1 x10(3)/[facility] Immature Gran % 0.20 % [facility] Comment: Immature granulocytes(IG's)percentage and absolute count will include metamyelocytes, myelocytes, and promyelocytes. Blood smears from CBCs yielding IG's will be scanned manually for concordance. If this scan disagrees with the automated IG or if promyelocytes are noted, a manual differential will be performed. Immature Gran Absolute 0.01 0.00 - 0.04 x10(3)/[facility] Blood specimen (specimen) 01/28/2020 4:27 AM EST 01/28/2020 4:32 AM EST Narrative Resulting Agency Comment Spec In Lab Harleen JUNIOR HEMATOLOGY ORDERABLE S [facility] [place] [address] * Hemogram (01/28/2020 4:27 AM EST) White Blood Cell 4.1 4.0 - 9.5 x10(3)/[facility] Red Blood Cell 4.06 4.00 - 5.21 x10(6)/[facility] Hemoglobin 12.3 11.7 - 15.5 gm/dL [facility] Hematocrit 36.6 35.7 - 45.8 % [facility] Mean Cell Volume 90.1 82.6 - 94.[address] [facility] Mean Cell Hemoglobin 30.3 27.1 - 32.[address] [facility] Mean Cell Hemoglobin Concentration 33.6 31.7 - 35.0 gm/dL [facility] Platelet 151 145 - 357 x10(3)/[facility] RDW Standard Deviation 43.0 37.0 - 46.0 [facility] RDW coefficient of variation 13.1 11.5 - 14.1 % [facility] Mean Platelet Volume 9.2 7.6 - 12.[address] [facility] NRBC% auto 0.0 % [facility] NRBC Absolute 0.000 0.000 - 0.000 x10(3)/[facility] Blood specimen (specimen) 01/28/2020 4:27 AM EST 01/28/2020 4:32 AM EST Narrative Resulting Agency Comment Spec In Lab Harleen JUNIOR HEMATOLOGY ORDERABLE S [facility] [place] [address] * (ABNORMAL) BMP w/fasting Glucose (01/28/2020 4:27 AM EST) Glucose Fasting 92 65 - 99 mg/dL [facility] Comment: ?Fasting* Glucose Interpretive Criteria [...] of Diabetes Mellitus, Position Statement from the [place] [employer]. ??Diabetes Care, Volume 33, Supplement 1, Feb 2009 Blood Urea Nitrogen 9 8 - 18 mg/dL [facility] Creatinine 0.63(L) 0.70 - 1.20 mg/dL [facility] Sodium 140 135 - 145 mmol/L [facility] Potassium 4.1 3.5 - 5.0 mmol/L [facility] Comment: Please note: ??Patients with WBC >100,000 may have falsely elevated Potassium levels. ??For accurate Potassium quantification in these patients send serum separator tube (gold top) for subsequent determinations. ??Contact the Clinical Chemistry Laboratory if there are any questions. Chloride 107 98 - 107 mmol/L [facility] Carbon Dioxide 25 22 - 31 mmol/L [facility] Anion Gap 8 5 - 15 mmol/L [facility] Calcium 9.0 8.5 - 10.5 mg/dL [facility] Est Glomerular Filtration Rate 100 >=60 mL/min/1. 73 m?? [facility] Comment: This patient? s estimated [...] Lab Kevin Diaz MD CHEMISTRY ORDERABL ES [facility] [place] [address] * Troponin (01/27/2020 2:25 PM EST) Troponin-T <0.01 0.00 - 0.00 ng/mL [facility] Comment: The 99th percentile for Troponin T is less than 0.01 ng/mL, any detectable cTnT concentration using this assay should be considered elevated. According to the third universal definition of myocardial infarction the following criteria with a clinical presentation consistent with acute myocardial ischemia meets the diagnosis for a myocardial infarction (CO). Detection of a rise and/or fall of cTnT, with at least one value greater than the 99th percentile (> or = 0.01) and with at least one of the following ?? Symptoms of ischemia ?? New or presumed new significant WX-pzctool-K wave (ST-T) changes or new left bundle branch block (LBBB) ?? Development of pathologic Q waves in the ECG ?? Imaging evidence of new loss of viable myocardium or new regional wall motion abnormality ?? Identification of an intracoronary thrombus by angiography or autopsy Samples for cTnT testing should be obtained serially upon first assessment and again 3 to 6 hours later. If the clinical suspicion is high and previous samples have been negative an additional sample may be indicated. Reference: Third [place] Definition of Myocardial Infarction. Journal of the [place] College [employer] 2012;60:1581-98 Blood specimen (specimen) 01/27/2020 2:25 PM EST 01/27/2020 2:47 PM EST Narrative Resulting Agency Comment Spec In Lab Gustavo Prescott MD CHEMISTRY ORDERABLES Performing Organization Address City/State/[facility] Co de Phone Number 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 (Age): 1965(54y) Med Rec#: ? [id number] ?Sex: ?F ? Site Loc: ? [facility] ?Ht / Wt: ??158(cm)/67(kg) Pt. Loc: ?Adult Floor ? BSA: ?1.68 Study Date: ?? 01/27/2020 ?Pt. Type: Inpatient Tape: ? Referring: JOSEP Referring: GUSTAVO PRESCOTT Reading: Marky Melgar ??([id number]) Government Professor: Jaleesa Keyes Interpreting Fellow: Pa Osuna ([id number]) Diagnosis: *Unspecified atrioventricular block (I44.30) BP: ? 116/86 SUMMARY: 1. The left ventricular chamber size and wall thickness are normal. There is normal global left ventricular systolic function. The quantitative left ventricular ejection fraction by biplane Simeon's method is 64%. ??There are no left ventricular segmental wall motion abnormalities. Left ventricular diastolic function is normal. 2. Right ventricular chamber size, wall thickness, and systolic function are within normal limits. 3. There is normal bi-atrial size. The estimated pulmonary artery systolic pressure is 23 mmHg (assuming RA pressure 3 mm Hg). 4. The atria are normal in size. 5. There is no hemodynamically significantly valve disease. 6. See remainder of report for additional findings. No prior echo for comparison. Findings ? : Left Ventricle: ? The left ventricular chamber size is normal. ?Left ventricular wall thickness is normal. ?There is no evidence of LVOT obstruction. ?No ventricular septal defect is visualized. ?There is normal global left ventricular systolic function. ?The quantitative left ventricular ejection fraction by biplane Simeon's method is 64%. ?There are no left ventricular segmental wall motion abnormalities. ?Left ventricular diastolic function is normal. ?Doppler assessment is consistent with normal left sided filling pressure. Left Atrium: ? The left atrium is normal in size. ?There is no patent foramen ovale visualized. Right Ventricle: ? Right ventricular chamber size, wall thickness, and systolic function are within normal limits. ?The estimated pulmonary artery systolic pressure is 23 mmHg. ?The estimated right atrial pressure is 3 mmHg. Right Atrium: ? The right atrium is normal in size. Aortic Valve: ? The aortic valve is tricuspid. ?The aortic valve leaflets are mildly thickened. ?Systolic excursion of the aortic valve is normal. ?There is no evidence of aortic valve stenosis. ?There is no evidence of aortic regurgitation. Mitral Valve: ? The mitral valve leaflets are mildly thickened. ?There is trace mitral regurgitation present. Tricuspid Valve: ? The tricuspid valve appears normal in structure and function. ?There is trace tricuspid regurgitation present. Pulmonic Valve: ? The pulmonic valve appears normal in structure and function. ?There is no evidence of pulmonic regurgitation. Pericardium: ? The pericardium appears normal and there is no evidence of a pericardial effusion. Aorta: ? The aortic root is normal in size. ?The ascending aorta is normal in size. Pulmonary Artery: ? The main pulmonary artery appears normal. Venous: ? The inferior vena cava appears normal in size. ?There is a greater than 50% respiratory change in the inferior vena cava dimension. Misc: ? See remainder of report for additional findings. ?Two-dimensional echo, spectral Doppler and color Doppler performed. Chambers 2D ?Value ?Units (Range) ? IVSd (2D) ? 0.83 ? cm ? LVPWd (2D) ?0.72 ? cm ? IVS:LVPW ratio (2D) 1.15 ? ratio ? RWT (2D) ?0.39 ? ratio ? RWT PW (2D) ? 0.36 ? ratio ? LVIDd (2D) ?3.97 ? cm ? LVIDs (2D) ?2.8 ?cm ? LVIDd (2D) index ?2.36 ? cm/m2 ? LVIDs (2D) index ?1.66 ? cm/m2 ? LV FS (2D) ?29.45 ?% ? EF Teichholz (2D) ?? 56.99 ?% ? Ao root diameter (2D2.83 ? cm (2.1 - 3.6) ? Ascending Ao ?2.82 ? cm (2 - 3.5) ? Volumes/Mass ?Value ?Units (Range) ? LA Area 4 CH ?15.2 ? cm2 (<21) ? LA ESV BP (A/L) inde25.47 ?ml/m2 ? RA AREA 4CH ? 12.1 ? cm2 ? LV ESV SP 4CH (MOD) 25.67 ?ml ? LV ESV SP 2CH (MOD) 28.24 ?ml ? LV EDV BP ? 74.08 ?ml ? LV ESV BP ? 26.71 ?ml ? LV EDV BP index ? 43.98 ?ml/m2 ? LV ESV BP index ? 15.85 ?ml/m2 ? BP EF (MOD) ? 63.95 ?% ? LV mass (2D) ?89.27 ?g ? LV mass (2D) index ??53 ? g/m2 ? Diastolic/Systolic Function ?Value ?Units (Range) ? MV E-wave Vmax ?0.74 ? m/sec ? MV deceleration evyn884.16 ? msec ? MV A-wave Vmax ?0.63 ? m/sec ? MV E:A ratio ?1.18 ? ratio ? LV septal e' Vmax ?? 0.11 ? m/sec ? LV lateral e' Vmax ??0.1 ?m/sec ? LV average e' Vmax ??0.11 ? m/sec ? LV E:e' septal ratio6.71 ? ratio ? LV E:e' lateral rati7.38 ? ratio ? LV average E:e' rati7.03 ? ratio ? Tricuspid Valve ?Value ?Units (Range) ? TR Vmax ? 2.23 ? m/sec ? TR peak gradient ?19.93 ?mmHg ? RAP ? 3 ?mmHg ? RVSP ?23 ? mmHg ? Wall Motion: Segment Name ?Rest ? Base-Anteroseptal ?? Normal ? Base-Anterior ? Normal ? Base-Anterolateral ??Normal ? Base-Posterolateral Normal ? Base-Inferior ? Normal ? Base-Inferoseptal ?? Normal ? Mid-Anteroseptal ?Normal ? Mid-Anterior ?Normal ? Mid-Anterolateral ?? Normal ? Mid-Posterolateral ??Normal ? Mid-Inferior ?Normal ? Mid-Inferoseptal ?Normal ? [place]-Septal ? Normal ? [place]-Anterior ? Normal ? [place]-Lateral ?Normal ? [place]-Inferior ? Normal ? [place]-Tip ?Normal ? This report has been electronically signed by: Marky Melgar ? 01/27/2020 10:45:42 Images reviewed and interpretation verified [facility] Cardiac Ultrasound [facility] Procedure Note Marky Melgar MD - 01/27/2020 Procedure: Transthoracic Echocardiogram Patient: SAM BARNARD(Age): 1965(54y) Med Rec#: [id number] Sex: F Site Loc: [facility] Ht / Wt: 158(cm)/67(kg) Pt. Loc: Adult Floor BSA: 1.68 Study Date: 01/27/2020 Pt. Type: Inpatient Tape: Referring: JOSEP Referring: GUSTAVO PRESCOTT Reading: Marky Melgar ([id number]) Government Professor: Jaleesa Keyes Interpreting Fellow: Pa Osuna ([id number]) Diagnosis: *Unspecified atrioventricular block (I44.30) BP: 116/86 SUMMARY: 1. The left ventricular chamber size and wall thickness are normal. There is normal global left ventricular systolic function. The quantitative left ventricular ejection fraction by biplane Simeon's method is 64%. There are no left ventricular segmental wall motion abnormalities. Left ventricular diastolic function is normal. 2. Right ventricular chamber size, wall thickness, and systolic function are within normal limits. 3. There is normal bi-atrial size. The estimated pulmonary artery systolic pressure is 23 mmHg (assuming RA pressure 3 mm Hg). 4. The atria are normal in size. 5. There is no hemodynamically significantly valve disease. 6. See remainder of report for additional findings. No prior echo for comparison. Findings : Left Ventricle: The left ventricular chamber size is normal. Left ventricular wall thickness is normal. There is no evidence of LVOT obstruction. No ventricular septal defect is visualized. There is normal global left ventricular systolic function. The quantitative left ventricular ejection fraction by biplane Simeon's method is 64%. There are no left ventricular segmental wall motion abnormalities. Left ventricular diastolic function is normal. Doppler assessment is consistent with normal left sided filling pressure. Left Atrium: The left atrium is normal in size. There is no patent foramen ovale visualized. Right Ventricle: Right ventricular chamber size, wall thickness, and systolic function are within normal limits. The estimated pulmonary artery systolic pressure is 23 mmHg. The estimated right atrial pressure is 3 mmHg. Right Atrium: The right atrium is normal in size. Aortic Valve: The aortic valve is tricuspid. The aortic valve leaflets are mildly thickened. Systolic excursion of the aortic valve is normal. There is no evidence of aortic valve stenosis. There is no evidence of aortic regurgitation. Mitral Valve: The mitral valve leaflets are mildly thickened. There is trace mitral regurgitation present. Tricuspid Valve: The tricuspid valve appears normal in structure and function. There is trace tricuspid regurgitation present. Pulmonic Valve: The pulmonic valve appears normal in structure and function. There is no evidence of pulmonic regurgitation. Pericardium: The pericardium appears normal and there is no evidence of a pericardial effusion. Aorta: The aortic root is normal in size. The ascending aorta is normal in size. Pulmonary Artery: The main pulmonary artery appears normal. Venous: The inferior vena cava appears normal in size. There is a greater than 50% respiratory change in the inferior vena cava dimension. Misc: See remainder of report for additional findings. Two-dimensional echo, spectral Doppler and color Doppler performed. Chambers 2D Value Units (Range) IVSd (2D) 0.83 cm LVPWd (2D) 0.72 cm IVS:LVPW ratio (2D) 1.15 ratio RWT (2D) 0.39 ratio RWT PW (2D) 0.36 ratio LVIDd (2D) 3.97 cm LVIDs (2D) 2.8 cm LVIDd (2D) index 2.36 cm/m2 LVIDs (2D) index 1.66 cm/m2 LV FS (2D) 29.45 % EF Teichholz (2D) 56.99 % Ao root diameter (2D2.83 cm (2.1 - 3.6) Ascending Ao 2.82 cm (2 - 3.5) Volumes/Mass Value Units (Range) LA Area 4 CH 15.2 cm2 (<21) LA ESV BP (A/L) inde25.47 ml/m2 RA AREA 4CH 12.1 cm2 LV ESV SP 4CH (MOD) 25.67 ml LV ESV SP 2CH (MOD) 28.24 ml LV EDV BP 74.08 ml LV ESV BP 26.71 ml LV EDV BP index 43.98 ml/m2 LV ESV BP index 15.85 ml/m2 BP EF (MOD) 63.95 % LV mass (2D) 89.27 g LV mass (2D) index 53 g/m2 Diastolic/Systolic Function Value Units (Range) MV E-wave Vmax 0.74 m/sec MV deceleration qiiv791.16 msec MV A-wave Vmax 0.63 m/sec MV E:A ratio 1.18 ratio LV septal e' Vmax 0.11 m/sec LV lateral e' Vmax 0.1 m/sec LV average e' Vmax 0.11 m/sec LV E:e' septal ratio6.71 ratio LV E:e' lateral rati7.38 ratio LV average E:e' rati7.03 ratio Tricuspid Valve Value Units (Range) TR Vmax 2.23 m/sec TR peak gradient 19.93 mmHg RAP 3 mmHg RVSP 23 mmHg Wall Motion: Segment Name Rest Base-Anteroseptal Normal Base-Anterior Normal Base-Anterolateral Normal Base-Posterolateral Normal Base-Inferior Normal Base-Inferoseptal Normal Mid-Anteroseptal Normal Mid-Anterior Normal Mid-Anterolateral Normal Mid-Posterolateral Normal Mid-Inferior Normal Mid-Inferoseptal Normal [place]-Septal Normal [place]-Anterior Normal [place]-Lateral Normal [place]-Inferior Normal [place]-Tip Normal This report has been electronically signed by: Marky Melgar 01/27/2020 10:45:42 Images reviewed and interpretation verified [facility] Ultrasound [facility] Gustavo Prescott MD ECHO ORDERABLES * Troponin (01/27/2020 8:53 AM EST) Troponin-T <0.01 0.00 - 0.00 ng/mL [facility] Comment: The 99th percentile for Troponin T is less than 0.01 ng/mL, any detectable cTnT concentration using this assay should be considered elevated. According to the third universal definition of myocardial infarction the following criteria with a clinical presentation consistent with acute myocardial ischemia meets the diagnosis for a myocardial infarction (CO). Detection of a rise and/or fall of cTnT, with at least one value greater than the 99th percentile (> or = 0.01) and with at least one of the following ?? Symptoms of ischemia ?? New or presumed new significant EE-vxjakof-V wave (ST-T) changes or new left bundle branch block (LBBB) ?? Development of pathologic Q waves in the ECG ?? Imaging evidence of new loss of viable myocardium or new regional wall motion abnormality ?? Identification of an intracoronary thrombus by angiography or autopsy Samples for cTnT testing should be obtained serially upon first assessment and again 3 to 6 hours later. If the clinical suspicion is high and previous samples have been negative an additional sample may be indicated. Reference: Third [place] Definition of Myocardial Infarction. Journal of the [place] College [employer] 2012;60:1581-98 Blood specimen (specimen) 01/27/2020 8:53 AM EST 01/27/2020 9:17 AM EST Narrative Resulting Agency Comment Spec In Lab Gustavo Prescott MD CHEMISTRY ORDERABLES [facility] [place] [address] * Differential, Automated (01/27/2020 2:19 AM EST) Neutrophil % 53.9 % [facility] Neutrophil Absolute 2.84 1.70 - 6.10 x10(3)/[facility] Lymph % 34.3 % [facility] Lymphocytes Abs 1.8 0.9 - 3.2 x10(3)/[facility] Monocyte % 6.5 % [facility] Monocyte Abs 0.3 0.3 - 0.9 x10(3)/[facility] Eos % 4.7 % [facility] Eosinophils Abs 0.2 0.0 - 0.4 x10(3)/[facility] Basophil % 0.4 % [facility] Baso Absolute 0.0 0.0 - 0.1 x10(3)/[facility] Immature Gran % 0.20 % [facility] Comment: Immature granulocytes(IG's)percentage and absolute count will include metamyelocytes, myelocytes, and promyelocytes. Blood smears from CBCs yielding IG's will be scanned manually for concordance. If this scan disagrees with the automated IG or if promyelocytes are noted, a manual differential will be performed. Immature Gran Absolute 0.01 0.00 - 0.04 x10(3)/[facility] Blood specimen (specimen) 01/27/2020 2:19 AM EST 01/27/2020 2:27 AM EST Narrative Resulting Agency Comment Spec In Lab Gustavo Prescott MD HEMATOLOGY ORDERABLE S [facility] [place] [address] * (ABNORMAL) Hemogram (01/27/2020 2:19 AM EST) White Blood Cell 5.3 4.0 - 9.5 x10(3)/mc L [facility] Red Blood Cell 3.70(L) 4.00 - 5.21 x10(6)/mc L [facility] Hemoglobin 11.3(L) 11.7 - 15.5 gm/dL [facility] Hematocrit 33.1(L) 35.7 - 45.8 % [facility] Mean Cell Volume 89.5 82.6 - 94.[address] [facility] Mean Cell Hemoglobin 30.5 27.1 - 32.[address] [facility] Mean Cell Hemoglobin Concentration 34.1 31.7 - 35.0 gm/dL [facility] Platelet 163 145 - 357 x10(3)/mc L [facility] RDW Standard Deviation 42.3 37.0 - 46.[address] [facility] RDW coefficient of variation 12.9 11.5 - 14.1 % [facility] Mean Platelet Volume 9.3 7.6 - 12.[address] [facility] NRBC% auto 0.0 % [facility] NRBC Absolute 0.000 0.000 - 0.000 x10(3)/mc L [facility] Blood specimen (specimen) 01/27/2020 2:19 AM EST 01/27/2020 2:27 AM EST Narrative Resulting Agency Comment Spec In Lab Gustavo Prescott MD HEMATOLOGY ORDERABLE S [facility] [place] [address] * Lyme IgG & IgM Antibody (01/27/2020 2:19 AM EST) Lyme Antibody Neg Neg [facility] Blood specimen (specimen) 01/27/2020 2:19 AM EST 01/27/2020 7:37 AM EST Narrative Resulting Agency Comment Spec In Lab Gustavo Prescott MD IMMUNOLOGY ORDERABLE S Performing Organization Address [facility] Co de Phone Number [facility] [place] [address] * Troponin (01/27/2020 2:19 AM EST) Troponin-T <0.01 0.00 - 0.00 ng/mL [facility] Comment: The 99th percentile for Troponin T is less than 0.01 ng/mL, any detectable cTnT concentration using this assay should be considered elevated. According to the third universal definition of myocardial infarction the following criteria with a clinical presentation consistent with acute myocardial ischemia meets the diagnosis for a myocardial infarction (CO). Detection of a rise and/or fall of cTnT, with at least one value greater than the 99th percentile (> or = 0.01) and with at least one of the following ?? Symptoms of ischemia ?? New or presumed new significant DD-djvxbxo-B wave (ST-T) changes or new left bundle branch block (LBBB) ?? Development of pathologic Q waves in the ECG ?? Imaging evidence of new loss of viable myocardium or new regional wall motion abnormality ?? Identification of an intracoronary thrombus by angiography or autopsy Samples for cTnT testing should be obtained serially upon first assessment and again 3 to 6 hours later. If the clinical suspicion is high and previous samples have been negative an additional sample may be indicated. Reference: Third [place] Definition of Myocardial Infarction. Journal of the [employer] College [employer] 2012;60:1581-98 Blood specimen (specimen) 01/27/2020 2:19 AM EST 01/27/2020 2:27 AM EST Narrative Resulting Agency Comment Spec In Lab Gustavo Prescott MD CHEMISTRY ORDERABLES Performing Organization Address City/[facility]/ZIP Co de Phone Number [facility] [place] [address] * Hemoglobin A1c (01/27/2020 2:19 AM EST) Hemoglobin A1c 5.2 4.3 - 5.6 % [facility] Comment: Reference Range: 4.3 - 5.6% 5.7 - 6.4% - Increased Risk of Developing Diabetes Mellitus >= 6.5% - Consistent with diagnosis of Diabetes Mellitus In the absence of hyperglycemia (i.e. plasma glucose > 200 mg/dL) or classic symptoms of hyperglycemia a repeat measurement of HbA1c should be performed on a separate sample to confirm the diagnosis. Diagnosis and Classification of Diabetes Mellitus, Diabetes Care 2013; 36: Suppl. 1, P97-98 Estimated Average Glucose 103 mg/dL [facility] Comment: eAG equivalents for HbA1c percentages: HbA1c(%) ?eAG(mg/dL) 6.0 ?126 6.5 ?140 7.0 ?154 7.5 ?169 8.0 ?183 8.5 ?197 9.0 ?212 9.5 ?226 10.0 ? 240 Limitations: The eAG calculation has not been validated on women, individuals below 18 years old and above 70 years old, and individuals with hemoglobinopathies. Additional resources are available on the ADA website. Pablo BAIG, Ivonne J, Jorge R, et al. ??Translating the A1C assay into estimated average glucose values. ??Diabetes Care 2008:31(8):5690-3958. Blood specimen (specimen) 01/27/2020 2:19 AM EST 01/27/2020 2:27 AM EST Narrative Resulting Agency Comment Spec In Lab Gustavo Prescott MD CHEMISTRY ORDERABLES [facility] [place] [address] * Lipid Panel (Reflex Direct LDL) (01/27/2020 2:19 AM EST) Cholesterol, Total 125 mg/dL [facility] Comment: Lower Risk: <200 mg/dL Average Risk: 200-239 mg/dL Higher Risk: >yk=883 mg/dL Triglyceride 52 mg/dL [facility] Comment: Average Risk/Lower Risk: <150 mg/dL Borderline High Risk: 150-199 mg/dL High Risk: 200-499 mg/dL Very High Risk: >qq=042 mg/dL HDL Cholesterol 68 mg/dL [facility] Comment: Males: ?? Higher Risk: <40 mg/dL Females: ?? HIgher Risk: <50 mg/dL LDL Cholesterol 47 mg/dL [facility] Comment: Lowest Risk: <100 mg/dL Lower Risk: 100-129 mg/dL Borderline High Risk: 130-159 mg/dL High Risk: 160-189 mg/dL Very High Risk: >bg=245 mg/dL Cholesterol/HDL Ratio 1.[address] [facility] Lipid Interpretation See Note [facility] Comment: Lipid management should be guided by a patient? s ASCVD risk, goals and preferences. ACC/AHA Guidelines recommend high intensity statin if clinical ASCVD or LDL greater than or equal to 190 mg/dL. http://tinyurl.com/BBQ-GUR-Kwuzxjgho Adults aged 40-75 with LDL 70-189 mg/dL should have their 10 year ASCVD risk estimated with the ACC/AHA ASCVD risk solar sales estimator http://tools.acc.org/PULZF-Cpyc-Faepfegbn/ Statin should be discussed if risk greater than or equal to 7.5% in non-diabetics. With diabetes, moderate intensity statin is recommended if risk less than 7.5%, high intensity if risk greater than or equal to 7.5%. Annual lipid monitoring on statins is not necessary. Evaluate secondary causes of Triglycerides greater than 500 mg/dL or LDL greater than 190 mg/dL: See table 6 of ACC/AHA Guideline. Lifestyle modification is a critical component of ASCVD risk reduction. Blood specimen (specimen) 01/27/2020 2:19 AM EST 01/27/2020 2:27 AM EST Narrative Resulting Agency Comment Spec In Lab Gustavo Prescott MD CHEMISTRY ORDERABLES Performing Organization Address [facility] de Phone Number [facility] [place] [address] * APTT (01/27/2020 2:19 AM EST) Partial Thromboplastin Time 30 25 - [address] [facility] Comment: The PTT is NOT appropriate for heparin monitoring. Use the Anti-Xa level for heparin monitoring (HEP UFH) or LMWH monitoring (HEP LMW). A PTT less than 37 seconds generally indicates adequate hemostasis. Blood specimen (specimen) 01/27/2020 2:19 AM EST 01/27/2020 2:27 AM EST Narrative Resulting Agency Comment Spec In Lab Gustavo Prescott MD HEMATOLOGY ORDERABLE S Performing Organization Address [facility] de Phone Number [facility] [place] [address] * Prothrombin Time (01/27/2020 2:19 AM EST) Prothrombin Time 11.6 9.4 - 12.[address] [facility] International Normalization Ratio 1.0 [facility] Comment: An INR <2.0 indicates adequate procoagulant activity for hemostasis in most patients without underlying bleeding disorders, though the INR may not adequately reflect hemostatic capacity in patients with liver disease and synthetic impairment. The recommended target INR range for therapeutic anticoagulation is 2.0 ? 3.0 for most applications, though lower and higher ranges may be appropriate depending on clinical circumstances. Blood specimen (specimen) 01/27/2020 2:19 AM EST 01/27/2020 2:27 AM EST Narrative Resulting Agency Comment Spec In Lab Gustavo Prescott MD HEMATOLOGY ORDERABLE S Performing Organization Address City/[facility]/ZIP Co de Phone Number [facility] [place] [address] * (ABNORMAL) Hepatic Function Panel (01/27/2020 2:19 AM EST) Pathologist [facility] Protein, Total 6.0(L) 6.1 - 8.0 gm/dL [facility] Albumin 3.9 3.2 - 5.2 gm/dL [facility] Aspartate Aminotransferase 16 0 - 30 unit/L [facility] Alanine Aminotransferase 15 0 - 30 unit/L [facility] Alkaline Phosphatase 65 35 - 105 unit/L [facility] Bilirubin, Total 0.2 0.2 - 1.3 mg/dL [facility] Bilirubin, Direct 0.1 0.0 - 0.3 mg/dL [facility] Blood specimen (specimen) 01/27/2020 2:19 AM EST 01/27/2020 2:27 AM EST Narrative Resulting Agency Comment Spec In Lab Gustavo Prescott MD CHEMISTRY ORDERABLES Performing Organization Address [facility] Co de Phone Number [facility] [place] [address] * (ABNORMAL) pro-Brain Natriuretic Peptide (01/27/2020 2:19 AM EST) [facility] NT-proBNP 150(H) <=125 pg/mL [facility] Blood specimen (specimen) 01/27/2020 2:19 AM EST 01/27/2020 2:27 AM EST Narrative Resulting Agency Comment Spec In Lab Gustavo Prescott MD CHEMISTRY ORDERABLES Performing Organization Address [facility] Co de Phone Number [facility] [place] [address] * TSH (01/27/2020 2:19 AM EST) [facility] Thyroid Stimulating Hormone 1.21 0.27 - 4.20 mcIU/mL [facility] Blood specimen (specimen) 01/27/2020 2:19 AM EST 01/27/2020 2:27 AM EST Narrative Resulting Agency Comment Spec In Lab Gustavo Prescott MD CHEMISTRY ORDERABLES Performing Organization Address [facility] de Phone Number [facility] [place] [address] * Phosphorus (01/27/2020 2:19 AM EST) Phosphorus 3.6 2.5 - 4.5 mg/dL [facility] Blood specimen (specimen) 01/27/2020 2:19 AM EST 01/27/2020 2:27 AM EST Narrative Resulting Agency Comment Spec In Lab Gustavo Prescott MD CHEMISTRY ORDERABLES Performing Organization Address [facility] Phone Number [facility] [place] [address] * Magnesium (01/27/2020 2:19 AM EST) Magnesium 0.81 0.69 - 1.07 mmol/L [facility] Blood specimen (specimen) 01/27/2020 2:19 AM EST 01/27/2020 2:27 AM EST Narrative Resulting Agency Comment Spec In Lab Gustavo Prescott MD CHEMISTRY ORDERABLES Performing Organization Address [facility] Phone Number [facility] [place] [address] * (ABNORMAL) Basic Metabolic Panel (non-fasting) (01/27/2020 2:19 AM EST) Glucose 99 65 - 199 mg/dL [facility] Comment:Diabetes: >=200 mg/d L plus symptoms Blood Urea Nitrogen 14 8 - 18 mg/dL [facility] Creatinine 0.65(L) 0.70 - 1.20 mg/dL [facility] Sodium 142 135 - 145 mmol/L [facility] Potassium 3.7 3.5 - 5.0 mmol/L [facility] Comment: Please note: ??Patients with WBC >100,000 may have falsely elevated Potassium levels. ??For accurate Potassium quantification in these patients send serum separator tube (gold top) for subsequent determinations. ??Contact the Clinical Chemistry Laboratory if there are any questions. Chloride 107 98 - 107 mmol/L [facility] Carbon Dioxide 25 22 - 31 mmol/L [facility] Anion Gap 10 5 - 15 mmol/L [facility] Calcium 8.8 8.5 - 10.5 mg/dL [facility] Est Glomerular Filtration Rate 99 >=60 mL/min/1. 73 m?? [facility] Comment: This patient? s estimated glomerular filtration rate (eGFR) is between 99 mL/min/1.73 m2 (patients with less muscle mass) and 115 mL/min/1.73 m2 (patients with more muscle mass) [...] in addition to eGFR. Blood specimen (specimen) 01/27/2020 2:19 AM EST 01/27/2020 2:27 AM EST Narrative Resulting Agency Comment Spec In Lab Gustavo Prescott MD CHEMISTRY ORDERABLES [facility] [place] [address] * EKG 12 Lead (01/27/2020 2:12 AM EST) Ventricular rate 72 BPM MUSE SYSTEM Atrial Rate 72 BPM MUSE SYSTEM P-R Interval 144 ms MUSE SYSTEM QRS Duration 76 ms MUSE SYSTEM Q-T Interval 424 ms MUSE SYSTEM QTC Calculated (Bezet) 464 ms MUSE SYSTEM Calculated P Ona 59 degrees MUSE SYSTEM Calculated R Ona 2 degrees MUSE SYSTEM Calculated T Ona -6 degrees MUSE SYSTEM INTERPRETATION Normal sinus rhythm Baseline wander Possible Left atrial enlargement Nonspecific ST abnormality (appears to be affected by baseline wander) Abnormal ECG No previous ECGs available Confirmed by Deon Liu MD ([id number]) on 01/27/2020 9:44:52 AM MUSE SYSTEM 01/27/2020 2:12 AM EST 01/27/2020 9:44 AM EST Gustavo Prescott MD ECG ORDERABLES MUSE SYSTEM * COVID-19 PCR (01/27/2020 2:03 AM EST) SARS-CoV-2 RNA (Rapid) Not Detected Not Detected [facility] Comment: This result should be interpreted in combination with the clinical observations, patient history and epidemiological information. For testing of asymptomatic individuals, assay performance characteristics and clinical utility have not been evaluated. Testing for SARS-CoV-2 (Severe acute respiratory syndrome coronavirus 2, formerly known as 2019 novel coronavirus or 2019-nCoV) to aid in the diagnosis of COVID-19 is performed using the Simplexa COVID-19 Direct Assay by [facility] as authorized by the FDA issued Emergency Use Authorization (EUA). This assay is intended for In-vitro Diagnostic (IVD) use with nasopharyngeal swabs collected from individuals meeting the CDC criteria for testing. The assay is performed based on the instructions for use and additional guidance provided by the FDA. Testing is performed in the Microbiology Laboratory within the Department of Pathology and Laboratory Medicine at [facility], certified under the Clinical Laboratory Improvement Amendments of 1988 (CLIA), 42 U.S.C. section 263a, to perform high complexity tests. Assay performance has been verified according to clinical laboratory regulatory requirements. Test results are provided above. A result of Not Detected indicates that the viral RNA target is not present but does not preclude SARS-CoV-2 infection. False negative results may occur if a specimen is improperly collected, transported or handled; if amplification inhibitors are present; or if inadequate numbers of viral particles are present in the specimen. A result of Detected suggests a current or recent infection and the patient is presumed to be infected. Positive and negative predictive values for this test are highly dependent on disease prevalence. A result of Invalid indicates the inability to conclusively determine the presence or absence of SARS-CoV-2 RNA in the sample which can be due to a variety of factors. Recollection is recommended in the case of an invalid result. CDC COVID-19 criteria for testing on human specimens and clinical management guidance information are available at the CDC Coronavirus Disease 2019 (COVID-19) webpage under Information for Healthcare Professionals (https://www.cdc.gov/coronavirus/2019-ncov/hcp/index.html). Additional information about this and other EUA tests can be found in provider and patient fact sheets at the following FDA website: https://www.fda.gov/medical-devices/dujwvdeaoiv-hgjaotu-0225-nrets-45-lzmmtkgpq- use-a ewabpdpgiemca-huehfix-gwsdpxs/qcaps-udtqsujpslh-bdjp SARS-CoV-2 Source MOTOR VEHICLE LECT[employer]ER Swab [facility] Nasopharyngeal swab (specimen) 01/27/2020 2:03 AM EST 01/27/2020 3:03 AM EST Comment:Symptoms->Surveillan ce Narrative Resulting Agency Comment Spec In Lab Gustavo Prescott MD MICROBIOLOGY - GENER AL ORDERABLES [facility] [place] [address] documented in this encounter Visit Diagnoses Diagnosis AVB (atrioventricular block) Atrioventricular block, unspecified AVB (atrioventricular block) Atrioventricular block, unspecified documented in this encounter Administered Medications Inactive Administered Medications - up to 3 most recent administrations Medication Order MAR Action Action Date Dose Rate Site aspirin EC tablet 81 mg 81 mg, Oral, DAILY, First dose on Mon01/27/20 at 0900, Until Discontinued, Routine Given 01/28/2020 8:54 AM EST 81 mg Given 01/27/2020 8:23 AM EST 81 mg atorvastatin (Lipitor) tablet 10 mg 10 mg, Oral, EVERY EVENING, First dose on Mon01/27/20 at 1700, Until Discontinued, Routine Given 01/27/2020 5:35 PM EST 10 mg heparin (porcine) (5,000 units/1 mL) subcutaneous injection 5,000 Units 5,000 Units, Subcutaneous, EVERY 12 HOURS SCHEDULED, First dose on Mon01/27/20 at 2100, Until Discontinued, Routine Given 01/27/2020 8:19 PM EST 5,000 Units levothyroxine (Synthroid) tablet 112 mcg 112 mcg, Oral, DAILY, First dose on Mon01/27/20 at 0600, Until Discontinued, Routine Given 01/28/2020 5:22 AM EST 112 mcg Given 01/27/2020 6:15 AM EST 112 mcg metoprolol tartrate (Lopressor) tablet 25 mg 25 mg, Oral, EVERY 12 HOURS SCHEDULED, First dose on Mon01/27/20 at 2100, Until Discontinued, Routine Given 01/28/2020 8:55 AM EST 25 mg Given 01/27/2020 8:21 PM EST 25 mg potassium chloride ER (K-Dur/Klor-Con) tablet 30 mEq 30 mEq, Oral, ONCE, 1 dose, On Mon01/27/20 at 0630, Routine Given 01/27/2020 6:15 AM EST 30 mEq sodium chloride 0.9 % (flush) flush 5 mL 5 mL, Intravenous, 2 TIMES DAILY, First dose on Mon01/27/20 at 0900, Until Discontinued, Routine Given 01/27/2020 8:23 PM EST 5 mLs sodium chloride 0.9 % (flush) flush 5 mL 5 mL, Intravenous, 2 TIMES DAILY, First dose on Mon01/27/20 at 0900, Until Discontinued, Routine Given 01/28/2020 8:55 AM EST 5 mLs Given 01/27/2020 8:23 PM EST 5 mLs Given 01/27/2020 8:24 AM EST 5 mLs documented in this encounter Active and Recently Administered Medications Times are shown in EST. Scheduled Medication Order 01/26/2020 01/27/2020 01/28/2020 aspirin EC tablet 81 mg 81 mg, Oral, DAILY, First dose on Mon01/27/20 at 0900, Until Discontinued, Routine 0823 (Given - Provider: Adrianne Fam RN) 0854 (Given - Provider: Kenya Souza RN) atorvastatin (Lipitor) tablet 10 mg 10 mg, Oral, EVERY EVENING, First dose on Mon01/27/20 at 1700, Until Discontinued, Routine 1735 (Given - Provider: Adrianne Fam RN) heparin (porcine) (5,000 units/1 mL) subcutaneous injection 5,000 Units 5,000 Units, Subcutaneous, EVERY 12 HOURS SCHEDULED, First dose on Mon01/27/20 at 2100, Until Discontinued, Routine 2018 (Given - Provider: Romelia Mckeon RN) 0900 (Not Given - Provider: Kenya Souza RN - Reason: Patient/family refused) levothyroxine (Synthroid) tablet 112 mcg 112 mcg, Oral, DAILY, First dose on Mon01/27/20 at 0600, Until Discontinued, Routine 06 (Given - Provider: Brielle Katz RN) 0522 (Given - Provider: Romelia Mckeon RN) metoprolol tartrate (Lopressor) tablet 25 mg 25 mg, Oral, EVERY 12 HOURS SCHEDULED, First dose on Mon01/27/20 at 2100, Until Discontinued, Routine 2020 (Given - Provider: Romelia Mckeon RN) 0855 (Given - Provider: Kenya Souza RN) potassium chloride ER (K-Dur/Klor-Con) tablet 30 mEq (COMPLETED) 30 mEq, Oral, ONCE, 1 dose, On Mon01/27/20 at 0630, Routine 0615 (Given - Provider: Brielle Katz RN) sodium chloride 0.9 % (flush) flush 5 mL 5 mL, Intravenous, 2 TIMES DAILY, First dose on Mon01/27/20 at 0900, Until Discontinued, Routine 0900 (Not Given - Provider: Adrianne Fam RN - Reason: See comment - Comment: duplicate)2022 (Given - Provider: Romelia Mckeon RN) 0900 (Not Given - Provider: Kenya Souza RN - Reason: Order parameters not met) sodium chloride 0.9 % (flush) flush 5 mL 5 mL, Intravenous, 2 TIMES DAILY, First dose on Mon01/27/20 at 0900, Until Discontinued, Routine 08 (Given - Provider: Adrianne Fam RN)2022 (Given - Provider: Romelia Mckeon RN) 0855 (Given - Provider: Kenya Souza RN) PRN Medication Order 01/26/2020 01/27/2020 01/28/2020 acetaminophen (Tylenol) tablet 650 mg 650 mg, Oral, EVERY 4 HOURS PRN, Starting on Mon01/27/20 at 0202, Until Mon01/28/20 at 1443, Pain, Headaches, Maximum dose of acetaminophen is 4000 mg from all sources in 24 hours. When ordered for pain, acetaminophen should be given even when other ordered pain medications are indicated. , Routine lidocaine (XYLOCAINE) 10 mg/mL (1 %) injection 3 mg 3 mg (0.3 mL), Subcutaneous, ONCE PRN, 1 dose, Starting on Mon01/27/20 at 0202, Until Mon01/28/20 at 1443, for discomfort with PIV insertion, Routine nitroGLYcerin (Nitrostat) disintegrating tablet 0.4 mg 0.4 mg, Sublingual, EVERY 5 MIN PRN, Starting on Mon01/27/20 at 0202, Until Mon01/28/20 at 1443, Chest pain, May repeat every 5 minutes for a total of three doses. Notify provider if chest pain not relieved with nitroglycerin. Do not administer nitroglycerin if the patient has received or taken phosphodiesterase (PDE-5) inhibitors such as sildenafil, tadalafil or vardenafil within the last 24 to 72 hours., Routine sodium chloride 0.9 % (flush) flush 5-20 mL 5-20 mL, Intravenous, EVERY 1 MIN PRN, Starting on Mon01/27/20 at 0202, Until Mon01/28/20 at 1443, flush, Flush pertains to all indwelling lines. Flush per protocol found in the job aid using the link provided on this medication record., Routine sodium chloride 0.9 % (flush) flush 5-20 mL 5-20 mL, Intravenous, EVERY 1 MIN PRN, Starting on Mon01/27/20 at 0202, Until Mon01/28/20 at 1443, flush, Flush pertains to all indwelling lines. Flush per protocol found in the job aid using the link provided on this medication record., Routine documented in this encounter Care Teams Director Of Billing Relationship Specialty Start Date End Date Katie Tong APRN [address] [place] [address] PCP - General Family Medicine 01/28/20 documented as of this encounter
--- OUTSIDE RECORDS SUMMARY | 2024-02-02 12:54 | XMS_ITS | Encounter Summary ---
Author Organization [facility] [place] [address] Care Team Providers Care Car Storer Name Role Phone CelsoKatie talamantes DUONG Primary Care Provider [phone] Encounter Details Date Type Department Care Team (Late st Contact Info) Description 03/03/2022 3:20 PM EST Office Visit Dermatology at [facility] [address] [place] [id number] Stacey Holcomb MD [facility] [address] [place] [address] Actinic keratoses Social History Tobacco Use Types [...] Progress Notes * Stacey Holcomb MD - 03/03/2022 3:20 PM EST Images from the original note [...] No AKs Yes - 5FU to the scalp UV Exposure & Protection No Other relevant [...] Tasneem Su is a 56 y.o. Patient returns to clinic today for an Actinic Keratoses follow up s/p 5FU follow up. Patient reports she applied Rx Efudex to the scalp for3 weeks. Last visit at Dermatology: 10/28/2021 Last visit with this provider: 10/28/2021 Medications: Reviewed in eD-H Allergies: Reviewed in eD-H Skin Examination: Focused skin examination of the scalp was normal with the exception of the findings below. Patient refused FSE today Assessment/Plan #. Actinic Keratosis - Ill-defined gritty papule on the vertex scalp x1. Otherwise clear on exam atnatural midline of scalp - Explained premalignant potential of these lesions. - Discussed treatment with cryotherapy. Patient elects to proceed with cryotherapy today. - Instructed patient to return to clinic for re-evaluation if lesion(s) does not resolve as expected with this treatment. Procedure: Destruction of lesion(s) with cryotherapy (LN2). Location(s): As noted above. Number: 1 Discussed procedure and expectations, including risks and benefits. Verbal consent obtained. Treated with LN2. There were no complications; Patient tolerated the procedure well. Post-procedure expectations and wound care reviewed. Other: ??? N/A RTC: PRN Scribe attestation: MICHELLE Smith has performed the documentation for this encounter in the presence of and acting as a scribe for Stacey Holcomb MD. I performed the above scribed service and agree with the accuracy of the documentation in this encounter. Reviewed and signed by: Stacey Holcomb MD Dermatology Counts Include [address] [facility] Patient seen and evaluated with staff city clerk: Nasrin Munoz MD Dermatology Counts Include [address] * Nasrin Munoz MD - 03/03/2022 3:20 PM EST I directly supervised the resident during this office visit. The resident physician presented the history and physical exam to me. I then saw and examined this patient with the resident. We reviewed the history and pertinent details and I confirmed the physical exam findings. I agree with the details of the history and physical exam as documented in the resident physician's note. Nasrin Munoz MD Staff Physician [facility] documented in this encounter Plan of Treatment Not on file documented as of this encounter Visit Diagnoses Diagnosis Actinic keratoses Actinic keratosis documented in this encounter Care Teams Car Storer Relationship Specialty Start Date End Date Katie Tong, DUONG [address] [place] [address] PCP - General Family Medicine 01/28/20 documented as of this encounter
--- OUTSIDE RECORDS SUMMARY | 2024-02-02 12:54 | XMS_ITS | Encounter Summary ---
[place] [address] Care Team Providers Care Separator Tender Name Role Phone Katie Tong APRN Primary Care Provider [phone] Encounter Details Date Type Department Care Team (Latest Contact Info) Description 03/03/2022 Travel Social History Tobacco Use Types Packs/Day [...] on filedocumented in this encounter Care Teams Separator Tender Relationship Specialty Start Date End Date Katie Tong APRN [address] [place] [address] PCP - General Family Medicine 01/28/20 documented as of this encounter
--- OUTSIDE RECORDS SUMMARY | 2024-02-02 12:54 | XMS_ITS | Encounter Summary ---
Author Organization [facility] Address [address] [place] [address] Care Team Providers Care Acid Changer Name Role Phone Fatimah Velez NP Primary Care Provider [phone] Fatimah Velez NP Unavailable [phone] Katie Tong REGIONAL FACILITIES SPECIALIST Primary Care Provider [phone] Encounter Details Date Type Department Care Team (Latest Contact Info) Description 03/05/2019 Lab Requisition [facility] Pathology & Laboratory Medicine - [facility] [address] [place] [address] Katie Tong NP [address] [place] [address] Encounter for general adult medical examination without abnormal findings; Encounter for screening for malignant neoplasm of cervix; Encounter for screening for human papillomavirus (HPV) Social History Tobacco Use Types Packs/Day Years [...] Procedure Name Priority Date/Time Associated Diagnosis Comments PAP TEST Today 03/04/2019 16:10 EST Encounter for general adult medical examination without abnormal findings Encounter for screening for malignant neoplasm of cervix Encounter for screening for human papillomavirus (HPV) HPV DNA DETECTION WITH GENOTYPING, PCR Today 03/04/2019 16:10 EST Encounter for general adult medical examination without abnormal findings Encounter for screening for malignant neoplasm of cervix Encounter for screening for human papillomavirus (HPV) documented in this encounter Results * HUMAN PAPILLOMAVIRUS (HPV) DETECTION-HIGH RISK TYPES (03/04/2019 16:10 EST) HPV other High Risk types, PCR Negative Negative 03/13/2019 7:19 [facility] Comment:No E6 or E7 mRNA is detected from HPV types 16,18,31,33,35,39,45,51,52,56,58,59,66, and 68 by social welfare clerk mediated amplification. Papanicolaou smear specimen (specimen) CERVIX UTERI STRUCTURE / Unknown 03/04/2019 16:10 EST 03/12/2019 10:55 EST us Katie Tong NP MICROBIOLOGY - GENERAL ORDERAB LES Final Result Performing Organization Address City/State/[facility] Co de Phone Number [facility] [address] [place] [address] * PAP TEST (03/04/2019 16:10 EST) Specimens A. Cervix and/or Endocervix, , ThinPrep Imaging System with Manual Evaluation 03/13/2019 7:19 [facility] Specimen Adequacy Satisfactory for Evaluation - transformation zone component present 03/13/2019 7:19 [facility] General Categorization Negative for intraepithelial lesion or malignancy 03/13/2019 7:19 [facility] Attestation By the signature below, the attending physician certifies that they have personally conducted a gross and/or microscopic examination of the described specimens and rendered or confirmed the above diagnosis. 03/13/2019 7:19 [facility] at 0719 Clinical History SEE ORDER COMMENTS 03/13/2019 7:19 [facility] HPV The result for the Human Papillomavirus (HPV) Detection-High Risk Types is Negative. No E6 or E7 mRNA is detected from HPV types 16,18,31,33,35,39 ,45,51,52,56,58,5 9,66, and 68 by social welfare clerk mediated amplification.Mary ting was performed on specimen [id number] and was resulted on 03/13/2019 0716 EST by BARRERA, LAB INSTRUMENT RESULTS IN 03/13/2019 7:19 EST [facility] Scanned Images 03/13/2019 7:19 EST [facility] Papanicolaou smear specimen (specimen) CERVIX UTERI STRUCTURE / Unknown 03/04/2019 16:10 EST 03/05/2019 9:59 EST Katie Tong NP PATHOLOGY ORDERABLES Final Res ult [facility] [address] [place] [address] documented in this encounter Visit Diagnoses Diagnosis Encounter for general adult medical examination without abnormal findings Unspecified general medical examination Encounter for screening for malignant neoplasm of cervix Screening for malignant neoplasm of the cervix Encounter for screening for human papillomavirus (HPV) Special screening examination for human papillomavirus (HPV) documented in this encounter Care Teams Acid Changer Relationship Specialty Start Date End Date Fatimah Velez NP PCP - General 03/17/15 06/12/21 Katie Tong NP [facility] [place] [address] PCP - General 06/13/21 Fatimah Velez NP 03/17/15 documented as of this encounter
--- OUTSIDE RECORDS SUMMARY | 2024-02-02 12:54 | XMS_ITS | Encounter Summary ---
Author Organization [facility] Address [address] [place] [address] Care Team Providers Care It Engineer Name Role Phone Unavailable Primary Care Provider Unavailabl e Encounter Details Date Type Department Care Team (Late st Contact Info) Description 11/29/2011 Results Only [facility] Laboratory Services - [facility] [address] [place], [place] [id number] Fab Díaz, TRACY [address] [place] [address] Social History Tobacco Use Types Packs/Day [...] Name Priority Date/Time Associated Diagnosis Comments PAP TEST- RESULT ONLY Routine 11/29/2011 0:00 EDT documented in this encounter Results * PAP TEST- RESULT ONLY (11/29/2011 0:00 EDT) Pathology Report: CYTOPATHOLOGY REPORT Reports generated via electronic interface contain original data; however they are lacking the format of the original report. Caution should be taken when reading/interpreti ng unformatted reports. Name: ? MARISEL ANN ? Accession #: ? [id number] : ? 1965 (Age: 46) ??F ?Collect Date: ? 11/29/2011 Location: ? [facility] ? Receive Date: ? 12/02/2011 Provider: ?FAB DÍAZ MULTI CARE TECHNICIAN Copy to: ? Specimen/Source: ?Pap Test, Cervix/Endocervix, ThinPrep Imaging System with manual evaluation Last Menstrual Period: ? 06/24 ? SPECIMEN ADEQUACY ? Satisfactory for Evaluation - transformation zone component present GENERAL CATEGORIZATION ? Negative for Intraepithelial Lesion or Malignancy ? Document reviewed and electronically signed by: ? CHERRY Bennett(ASCP) ? Report Date: ??12/07/2011 09:01 End of Report [facility] 11/29/2011 12/02/2011 us Fab íDaz MULTI CARE TECHNICIAN PATHOLOGY ORDERABLES Final R esult [facility] [address] [place] [address] documented in this encounter Visit Diagnoses Not on filedocumented in this encounter
--- OUTSIDE RECORDS SUMMARY | 2024-02-02 12:54 | XMS_ITS | Encounter Summary ---
[place] [address] Care Team Providers Care Gps Field Data Collector Name Role Phone Ran Katie WATTERS Primary Care Provider [phone] Reason for Referral * Diagnostic Test (Routine) - Closed Specialty Diagnoses / Procedures Referred By Contac t Referred To Contact Cardiology Diagnoses Palpitations Lightheaded 2nd degree AV block Procedures Ziopatch 48 Hrs-15 Days Gaurav Massey MD [facility] [place] [address] [facility] [place] [address] Referral ID Status Reason Start Date Expiration Date V isits Requested Visits Authorized [id number] Closed Specialty Service Requested 06/18/2020 12/19/2020 1 1 Reason for Visit * Diagnostic Test (Routine) - Closed Specialty Diagnoses / Procedures Referred By Contac t Referred To Contact Cardiology Diagnoses Palpitations Lightheaded 2nd degree AV block Procedures Ziopatch 48 Hrs-15 Days Gaurav Massey MD [facility] [place] [address] [facility] [place] [address] Referral ID Status Reason Start Date Expiration Date V isits Requested Visits Authorized [id number] Closed Specialty Service Requested 06/18/2020 12/19/2020 1 1 Encounter Details Date Type Department Care Team (Latest Contact Info) Description 06/29/2020 8:00 AM EDT - 06/29/2020 11:59 PM EDT Hospital Encounter Non-[place] [phone] Gaurav Massey MD [facility] [place] [address] Palpitations; Lightheaded; 2nd degree AV block Discharge Disposition: Home Social History Tobacco Use Types Packs/Day Years Used Date Smoking Tobacco: Former Cigarettes Smokeless Tobacco: Never Alcohol Use Standard Drinks/Week Comments Yes 2 (1 standard drink = 0.6 oz pur e alcohol) Sex and Gender Information Value Date Recorded Sex Assigned at Not on file Gender Identity Not on file Sexual Orientation Not on file documented as of this encounter Medications at Time of Discharge [...] for Pain. documented as of this encounter Plan of Treatment Not on file documented as of this encounter Procedures Procedure Name Priority Date/Time Associated Diagnosis Comments ZIOPATCH 48 HRS-15 DAYS Routine 06/29/2020 11:03 AM EDT Palpitations Lightheaded 2nd degree AV block documented in this encounter Results * Ziopatch 48 Hrs-15 Days (06/29/2020 11:03 AM EDT) Anatomical Region Laterality Modality Other Narrative 07/31/2020 2:13 PM EDT [facility] ? Zio Patch? Ambulatory Cardiac Event [...] block documented in this encounter Care Teams Gps Field Data Collector Relationship Specialty Start Date End Date Katie Tong, DUONG [address] [place] [address] PCP - General Family Medicine 01/28/20 documented as of this encounter
--- OUTSIDE RECORDS SUMMARY | 2024-02-02 12:54 | XMS_ITS | Encounter Summary ---
[place] [address] Care Team Providers Care Chemists Name Role Phone RanKatie DUONG Primary Care Provider [phone] Encounter Details Date Type Department Care Team (Late st Contact Info) Description 08/31/2020 Telephone Cardiology at [address] [phone] Ara Escobedo, RN Social History Tobacco Use [...] encounter Miscellaneous Notes * Telephone Encounter - Ara Escobedo, RN - 08/31/2020 12:07 PM EDT TC from Mrs Cronin stating she missed her scheduled call from Dr Massey last week, for results regarding her ZIO results. Secure Chat message from Dr. Massey stating EP RN can call with normal results, and he would like a scheduled phone call to talk with her also. documented in this encounter Plan of Treatment Not on file documented as of this encounter Visit Diagnoses Not on filedocumented in this encounter Care Teams Chemists Relationship Specialty Start Date End Date Katie Tong, ROUSTABOUT CREW [address] [place] [address] PCP - General Family Medicine 01/28/20 documented as of this encounter
--- OUTSIDE RECORDS SUMMARY | 2024-02-02 12:54 | XMS_ITS | Encounter Summary ---
[place] [address] Care Team Providers Care Traffic Rate Analyst Name Role Phone Katie Tong APRN Primary Care Provider [phone] Encounter Details Date Type Department Care Team (Latest Contact Info) Description 08/05/2022 Travel Social History Tobacco Use Types Packs/Day [...] on filedocumented in this encounter Care Teams Traffic Rate Analyst Relationship Specialty Start Date End Date Katie Tong APRN [address] [place] [address] PCP - General Family Medicine 01/28/20 documented as of this encounter
--- OUTSIDE RECORDS SUMMARY | 2024-02-02 12:54 | XMS_ITS | Encounter Summary ---
Author Organization [facility] Address [address] [place] [address] Care Team Providers Care Acute Dialysis Nurse Name Role Phone Unknown, Provider MD Primary Care Provider Unava ilable Unknown, Provider MD Primary Care Provider Unava ilable Unknown, Provider MD Unavailable Unavailable Encounter Details Date Type Department Care Team (Late st Contact Info) Description 01/20/2015 Results Only [facility] [phone] Tatyana Lozano, TRAC[address] [place] [address] Social History Tobacco Use Types Packs/Day Years [...] Diagnosis Comments PAP TEST- RESULT ONLY Routine 01/20/2015 0:00 EST documented in this encounter Results * PAP TEST- RESULT ONLY (01/20/2015 0:00 EST) Pathology Report: CYTOPATHOLOGY REPORT Reports generated via electronic interface contain original data; however they are lacking the format of the original report. Caution should be taken when reading/interpreti ng unformatted reports. Name: ? SUZANNEMARISEL ? Accession #: ? [id number] ? : ? 1965 (Age: 49) ??F ?Collect Date: ? 01/20/2015 ? Location: ? [facility] ? Receive Date: ? 01/21/2015 ? Provider: TATYANA LOZANO CULTURAL ANTHROPOLOGY PROFESSOR Copy to: ? Final Report SPECIMEN ADEQUACY ? Satisfactory for Evaluation - transformation zone component present GENERAL CATEGORIZATION ? Negative for Intraepithelial Lesion or Malignancy ?? Last Menstrual Period: 2011 Specimen/Source: ??Pap Test, Cervix/Endocervix, ThinPrep Imaging System with manual evaluation Document reviewed and electronically signed by: ? CHERRY Slater(ASCP) ? Report ??Date: 01/22/2015 15:30 HPV with Pap Test ? Date Ordered: ? 01/22/2015 ? Status: ?? Signed Out ?Date Complete: ? 01/26/2015 ? By: ??System Interface ? Date Reported: ? 01/26/2015 ? Interpretation RESULT: Negative for HPV. No E6 or E7 mRNA is detected from HPV types 16,18,31,33,35, 39,45,51,52,56,58, 59,66, and 68 by patrol driver mediated amplification. Comments Document reviewed and electronically signed by: ? System Interface ? Report date: 01/26/2015 By the signature above, the attending physician certifies that he/she has personally conducted a gross and/or microscopic examination of the described specimens and rendered or confirmed the above diagnosis. End of Report [facility] 01/20/2015 01/21/2015 us Tatyana Lozano NP PATHOLOGY ORDERABLES Final Res ult [facility] [address] [place] [address] documented in this encounter Visit Diagnoses Not on filedocumented in this encounter Care Teams Acute Dialysis Nurse Relationship Specialty Start Date End Date Unknown, Provider, PCP - General 12/26/14 01/20/15 Unknown, Provider, PCP - General 01/21/15 03/10/15 Unknown, ProviderMD 01/21/15 03/16/15 documented as of this encounter
--- OUTSIDE RECORDS SUMMARY | 2024-02-02 12:54 | XMS_ITS | Encounter Summary ---
[place] [address] Care Team Providers Care Insurance Verification Clerk Name Role Phone Ran Katie DUONG Primary Care Provider [phone] Encounter Details Date Type Department Care Team (Late st Contact Info) Description 09/01/2020 Telephone Cardiology at [address] [phone] Stew Calabrese RN Social History Tobacco Use Types Packs/Day [...] Telephone Encounter - Stew Calabrese RN - 09/01/2020 1:56 PM EDT TC to pt with the following information per Dr. Massey: let her know that no dangerous or particularly abnormal heart rhythms were found. However, I do hope to speak with her personally in the near future This information was relayed to pt who verbalized understanding. Pt then connected with scheduling to reschedule missed appointment. documented in this encounter Plan of Treatment Not on file documented as of this encounter Visit Diagnoses Not on filedocumented in this encounter Care Teams Insurance Verification Clerk Relationship Specialty Start Date End Date Katie Tong, DUONG [address] [place] [address] PCP - General Family Medicine 01/28/20 documented as of this encounter
[2024-02-02 16:10] LABS: Bacteria Few HPF (Negative); Epithelial Cells Rare HPF (Negative); RBC 0-2 HPF (0-2); WBC 0-2 HPF (0-5)
[2024-02-02 16:11] LABS: C & S Indicated? C&S Done As Ordered; Casts Negative LPF (Negative); Crystals Negative HPF (Negative); Mucus Negative (Negative)
== END 2024-02-02 12:53 | disposition home or self-care (01) ==
LOC: LBN 12:52
PROVIDERS: Visit Provider Physician Assistant Medical
DX: R30.0 Dysuria (principal)
CPT/HCPCS: 87077; 81015; 87086; 87186; 87480; 87510; 87660

== ENCOUNTER 2024-02-15 21:19 | Outpatient (REF) | payer BC, SELFPAY ==
--- OUTSIDE RECORDS SUMMARY | 2024-02-15 21:23 | XMS_ITS | Encounter Summary ---
[place] [address] Care Team Providers Care Undergraduate Internship Name Role Phone Katie Tong APRN Primary Care Provider [phone] Encounter Details Date Type Department Care Team [...] on filedocumented in this encounter Care Teams Undergraduate Internship Relationship Specialty Start Date End Date Katie Tong APRN [address] [place] [address] PCP - General Family Medicine 01/28/20 documented as of this encounter
--- OUTSIDE RECORDS SUMMARY | 2024-02-15 21:23 | XMS_ITS | Encounter Summary ---
Author Organization [facility] [place] [address] Care Team Providers Care Trip Follower Name Role Phone CleopatraKatie allen DUONG Primary Care Provider [phone] Encounter Details Date Type Department Care Team (Late st Contact Info) Description 08/11/2022 10:20 AM EDT Office Visit Dermatology at [facility] [address] [place] [address] Stacey Holcomb MD [facility] [address] [place] [address] Actinic keratoses Social History Tobacco Use Types [...] Other: N/A RTC: PRN []Note routed to social secretary []Recall placed in scheduling system []Appointment scheduled at checkout Scribe attestation: MICHELLE Smith has performed the documentation for this encounter in the presence of and acting as a scribe for Stacey Holcomb MD. I performed the above scribed service and agree with the accuracy of the documentation in this encounter. Reviewed and signed by: Stacey Holcomb MD Dermatology [facility] Patient seen and evaluated with staff fence installer: Mitesh Mojica MD Dermatology [facility] * Mitesh Mojica MD - 08/11/2022 10:20 [...] keratosis documented in this encounter Care Teams Trip Follower Relationship Specialty Start Date End Date Katie Tong, DUONG [address] [place] [address] PCP - General Family Medicine 01/28/20 documented as of this encounter
--- OUTSIDE RECORDS SUMMARY | 2024-02-15 21:23 | XMS_ITS | Encounter Summary ---
Author Organization [facility] [place] [address] Care Team Providers Care Public Health Veterinarian Name Role Phone CleopatraKatie allen DUONG Primary Care Provider [phone] Encounter Details Date Type Department Care Team (Late st Contact Info) Description 03/03/2022 3:20 PM EST Office Visit Dermatology at [facility] [address] [place] [phone] Stacey Holcomb MD [facility] [address] [place] [address] Actinic keratoses Social History Tobacco Use Types [...] and signed by: Stacey Holcomb MD Dermatology [facility] Patient seen and evaluated with staff department supervisor: Nasrin Munoz MD Dermatology [facility] * Nasrin Munoz MD - 03/03/2022 3:20 [...] physician's note. Nasrin Munoz MD Staff Physician [facility] Dermatology documented in this encounter Plan of Treatment Not on file documented as of this encounter Visit Diagnoses Diagnosis Actinic keratoses Actinic keratosis documented in this encounter Care Teams Public Health Veterinarian Relationship Specialty Start Date End Date Katie Tong, DUONG [address] [place] [address] PCP - General Family Medicine 01/28/20 documented as of this encounter
--- OUTSIDE RECORDS SUMMARY | 2024-02-15 21:23 | XMS_ITS | Encounter Summary ---
Author Organization [facility] Address [address] [place] [address] Care Team Providers Care Strategy Analyst Name Role Phone Fatimah Velez NP Primary Care Provider [phone] Fatimah Velez NP Unavailable [phone] Katie Tong CYBER SECURITY ANALYST Primary Care Provider [phone] Encounter Details Date Type Department Care Team (Latest Contact Info) Description 03/05/2019 Lab Requisition [facility] Pathology & Laboratory Medicine - [facility] [address] [place] [address] Katie Tong NP [address] [place] [address] Encounter for general adult medical [...] Risk types, PCR Negative Negative 03/13/2019 7:19 [facility] Comment:No E6 or E7 mRNA is detected from HPV types 16,18,31,33,35,39,45,51,52,56,58,59,66, and 68 by veterans rehabilitation counselor mediated amplification. Papanicolaou smear specimen (specimen) CERVIX UTERI STRUCTURE / Unknown 03/04/2019 16:10 EST 03/12/2019 10:55 EST us Katie Tong NP MICROBIOLOGY - GENERAL ORDERAB LES Final Result Performing Organization Address City/State/[facility] Co de Phone Number [facility] [address] [place] [address] * PAP TEST (03/04/2019 16:10 EST) Specimens A. Cervix and/or Endocervix, , ThinPrep Imaging System with Manual Evaluation 03/13/2019 7:19 [facility] Specimen Adequacy Satisfactory for Evaluation - transformation zone component present 03/13/2019 7:19 [facility] General Categorization Negative for intraepithelial lesion or malignancy 03/13/2019 7:19 [facility] Attestation By the signature below, the attending physician certifies that they have personally conducted a gross and/or microscopic examination of the described specimens and rendered or confirmed the above diagnosis. 03/13/2019 7:19 [facility] at 0719 Clinical History SEE ORDER COMMENTS 03/13/2019 7:19 [facility] HPV The result for the Human Papillomavirus (HPV) Detection-High Risk Types is Negative. No E6 or E7 mRNA is detected from HPV types 16,18,31,33,35,39 ,45,51,52,56,58,5 9,66, and 68 by veterans rehabilitation counselor mediated amplification.Mary ting was performed on specimen [id number] and was resulted on 03/13/2019 0716 EST by BARRERA, LAB INSTRUMENT RESULTS IN 03/13/2019 7:19 EST [facility] Scanned Images 03/13/2019 7:19 EST [facility] Papanicolaou smear specimen (specimen) CERVIX UTERI STRUCTURE / Unknown 03/04/2019 16:10 EST 03/05/2019 9:59 EST Katie Tong NP PATHOLOGY ORDERABLES Final Res ult [facility] [address] [place] [address] documented in this encounter Visit Diagnoses Diagnosis Encounter for general adult medical examination without abnormal findings Unspecified general medical examination Encounter for screening for malignant neoplasm of cervix Screening for malignant neoplasm of the cervix Encounter for screening for human papillomavirus (HPV) Special screening examination for human papillomavirus (HPV) documented in this encounter Care Teams Strategy Analyst Relationship Specialty Start Date End Date Fatimah Velez NP PCP - General 03/17/15 06/12/21 Katie Tong NP [facility] [place] [address] PCP - General 06/13/21 Fatimah Velez NP 03/17/15 documented as of this encounter
--- OUTSIDE RECORDS SUMMARY | 2024-02-15 21:23 | XMS_ITS | Encounter Summary ---
Author Organization [facility] Address [address] [place] [address] Care Team Providers Care Leaf Conditioner Helper Name Role Phone Unknown, Provider Primary Care Provider Tatyana Eldridge NP Primary Care Provider [phone] Unknown, Provider Unavailable Unavailable Encounter Details Date Type Department Care Team (Late st Contact Info) Description 03/10/2015 Results Only [facility] [phone] Hitesh Troncoso Jr., MD [address] [place] [phone] Social History Tobacco Use Types Packs/Day [...] ? MARISEL PALACIOS ? Accession #: ? [id number] ? : ? 1965 (Age: 49) ??F ? Collect Date: ? 03/10/2015 ? Location: ? [facility] ? Receive Date: ? 03/11/2015 ? Provider: HITESH TRONCOSO MD Copy to: TATYANA LOZANO MAJOR ACCOUNT MANAGER ? Final Pathologic Diagnosis: SOFT TISSUE [...] Camacho 03/11/2015 3:09 PM End of Report [facility] 03/10/2015 12:4 0 EST 03/11/2015 12:40 EST us Hitesh Troncoso Jr., MD PATHOLOGY ORDER SHUKRI Final Result [facility] [address] [place] [address] documented in this encounter Visit Diagnoses Not on filedocumented in this encounter Care Teams Leaf Conditioner Helper Relationship Specialty Start Date End Date Unknown, Provider, PCP - General 01/21/15 03/10/15 Tatyana Lozano NP PCP - General 03/11/15 03/16/15 Unknown, Provider, 01/21/15 03/16/15 documented as of this encounter
--- OUTSIDE RECORDS SUMMARY | 2024-02-15 21:23 | XMS_ITS | Encounter Summary ---
Author Organization [facility] Address [address] [place] [address] Care Team Providers Care Airplane Dispatcher Name Role Phone AgustinFatimah DIE STAMPER Unavailable Katie Tong NP Primary Care Provider [phone] Encounter Details Date Type Department Care Team (Late st Contact Info) Description 07/13/2021 Lab Requisition [facility] Pathology & Laboratory Medicine - [facility] [address] [place] [address] Marcelino Gamez, [facility] [address] [place] [phone] Other specified disorders of the skin and [...] explore management options, if applicable. 07/14/2021 15:39 [facility] Final Diagnosis A. SKIN OF SCALP, PUNCH BIOPSY: - Actinic keratosis, acanthotic type. 07/14/2021 15:39 [facility] Attestation By the signature below, the attending physician certifies that they have 1) personally conducted a gross and/or microscopic examination of the described specimen(s), and/or personally interpreted the results of laboratory testing of the described specimen(s), and 2) personally rendered or confirmed the above diagnosis. 07/14/2021 15:39 [facility] at 1539 Microscopic Description There is hyperkeratosis and parakeratosis. The epidermis is hyperplastic and shows variable atypia with nuclear enlargement, hyperchromasia, and dyspolarity. There are areas of acantholysis. The dermis has solar elastosis and lymphomononuclear inflammation. 07/14/2021 15:39 [facility] Clinical History Skin lesions; clinical diagnosis code: L98.8 07/14/2021 15:39 [facility] Gross Description A. Received in formalin labelled with proper patient identification (initials G, L) and scalp is an irregular chavez-brown tissue without obvious orientation, 0.3 x 0.1 x 0.1 cm. Entirely submitted intact in A1. VERNON KISER(ASCP) 07/14/2021 7:24 07/14/2021 15:39 T [facility] Performing Lab [facility] 07/14/2021 15:39 [facility] Scanned Images 07/14/2021 15:39 [facility] Tissue TISSUE SPECIMEN FROM SKIN / Unknown 07/09/2021 16:35 EDT 07/13/2021 18:37 EDT Marcelino Srivastava DNP PATHOLOGY ORDERABLES Diana gardner Result [facility] [address] [place] [address] documented in this encounter Visit Diagnoses Diagnosis Other specified disorders of the skin and subcutaneous tissue documented in this encounter Care Teams Airplane Dispatcher Relationship Specialty Start Date End Date Katie Tong NP [address] [place] [address] PCP - General 06/13/21 Fatimah Velez NP 03/17/15 documented as of this encounter
--- OUTSIDE RECORDS SUMMARY | 2024-02-15 21:23 | XMS_ITS | Encounter Summary ---
Author Organization [facility] Address [address] [place] [address] Care Team Providers Care Marine Oil Terminal Superintendent Name Role Phone Unknown, Provider MD Primary Care Provider Unava ilable Unknown, Provider MD Primary Care Provider Unava ilable Unknown, Provider MD Unavailable Unavailable Encounter Details Date Type Department Care Team (Late st Contact Info) Description 01/20/2015 Results Only [facility] [phone] Tatyana Lozano, TRAC[address] [place] [address] Social History Tobacco Use Types [...] Name: ? SUZANNEMARISEL ? Accession #: ? [id number] ? : ? 1965 (Age: 49) ??F ?Collect Date: ? 01/20/2015 ? Location: ? [facility] ? Receive Date: ? 01/21/2015 ? Provider: TATYANA LOZANO PROSTHETIC MAKEUP DESIGNER Copy to: ? Final Report SPECIMEN ADEQUACY [...] types 16,18,31,33,35, 39,45,51,52,56,58, 59,66, and 68 by second baller mediated amplification. Comments Document reviewed and electronically signed by: ? System Interface ? Report date: 01/26/2015 By the signature above, the attending physician certifies that he/she has personally conducted a gross and/or microscopic examination of the described specimens and rendered or confirmed the above diagnosis. End of Report [facility] 01/20/2015 01/21/2015 us Tatyana Lozano NP PATHOLOGY ORDERABLES Final Res ult [facility] [address] [place] [address] documented in this encounter Visit Diagnoses Not on filedocumented in this encounter Care Teams Marine Oil Terminal Superintendent Relationship Specialty Start Date End Date Unknown, Provider, PCP - General 12/26/14 01/20/15 Unknown, Provider, PCP - General 01/21/15 03/10/15 Unknown, ProviderMD 01/21/15 03/16/15 documented as of this encounter
--- OUTSIDE RECORDS SUMMARY | 2024-02-15 21:23 | XMS_ITS | Encounter Summary ---
Author Organization [facility] [place] [address] Care Team Providers Care Ultrasonographer Name Role Phone Ran Katie WATTERS Primary Care Provider [phone] Reason for Visit * Consultation (Routine) - Closed Specialty Diagnoses / Procedures Referred By Aleida peters Referred To Contact Dermatology Diagnoses Actinic keratosis Actinic Keratosis; New Patient-Notes Received Procedures Consult Marcelino Srivastava, MARIVEL [facility] [address] [place] [address] [facility] [address] [place] [address] Referral ID Status Reason Start Date Expiration Date Visits Re quested Visits Authorized [id number] Closed 07/27/2021 07/27/2022 1 1 Encounter Details Date Type Department Care Team (Late st Contact Info) Description 10/28/2021 4:00 PM EDT Office Visit Dermatology at [facility] [address] [place] [address] Tati Reyes MD Actinic keratoses [...] Patient is referred to the clinic at [facility] of Marcelino Srivastava for an evaluation [...] follow up and FSE []Note routed to hospice patient care secretary [x]Recall placed in scheduling system []Appointment scheduled at checkout Scribe attestation: MICHELLE Smith has performed the documentation for this encounter in the presence of and acting as a scribe for Tati Reyes MD. I performed the above scribed service and agree with the accuracy of the documentation in this encounter. Reviewed and signed by: Tati Reyes MD Dermatology [facility] Patient seen and evaluated with staff cops: Mitesh Mojica MD Department of Dermatology [facility] * Mitesh Mojica MD - 10/28/2021 4:00 [...] keratosis documented in this encounter Care Teams Ultrasonographer Relationship Specialty Start Date End Date Katie Tong APRN [address] [place] [address] PCP - General Family Medicine 01/28/20 documented as of this encounter
--- OUTSIDE RECORDS SUMMARY | 2024-02-15 21:23 | XMS_ITS | Encounter Summary ---
Author Organization [facility] Address [address] [place] [address] Care Team Providers Care Vanstone Machine Operator Name Role Phone Unavailable Primary Care Provider Unavailabl e Encounter Details Date Type Department Care Team (Late st Contact Info) Description 11/29/2011 Results Only [facility] Laboratory Services - [facility] ([facility] [address] [place], [place] [id number] Fab Díaz, TRACY [address] [place] [address] Social History Tobacco Use Types [...] ? MARISEL ANN ? Accession #: ? [id number] : ? 1965 (Age: 46) ??F ?Collect Date: ? 11/29/2011 Location: ? [facility] ? Receive Date: ? 12/02/2011 Provider: ?FAB DÍAZ COVER ASSEMBLER Copy to: ? Specimen/Source: ?Pap Test, Cervix/Endocervix, ThinPrep Imaging System with manual evaluation Last Menstrual Period: ? 06/24 ? SPECIMEN ADEQUACY ? Satisfactory for Evaluation - transformation zone component present GENERAL CATEGORIZATION ? Negative for Intraepithelial Lesion or Malignancy ? Document reviewed and electronically signed by: ? CHERRY Bennett(ASCP) ? Report Date: ??12/07/2011 09:01 End of Report [facility] 11/29/2011 12/02/2011 us Fab Díaz COVER ASSEMBLER PATHOLOGY ORDERABLES Final R esult [facility] [address] [place] [address] documented in this encounter Visit Diagnoses Not on filedocumented in this encounter
--- OUTSIDE RECORDS SUMMARY | 2024-02-15 21:23 | XMS_ITS | Encounter Summary ---
[place] [address] Care Team Providers Care Industrial Maintenance Repairer Helper Name Role Phone Katie Tong APRN Primary Care Provider [phone] Encounter Details Date Type Department Care Team [...] on filedocumented in this encounter Care Teams Industrial Maintenance Repairer Helper Relationship Specialty Start Date End Date Katie Tong APRN [address] [place] [address] PCP - General Family Medicine 01/28/20 documented as of this encounter
--- OUTSIDE RECORDS SUMMARY | 2024-02-15 21:23 | XMS_ITS | Encounter Summary ---
[place] [address] Care Team Providers Care Dross Skimmer Name Role Phone Katie Tong APRN Primary Care Provider [phone] Encounter Details Date Type Department Care Team [...] on filedocumented in this encounter Care Teams Dross Skimmer Relationship Specialty Start Date End Date Katie Tong APRN [address] [place] [address] PCP - General Family Medicine 01/28/20 documented as of this encounter
--- OUTSIDE RECORDS SUMMARY | 2024-02-15 21:23 | XMS_ITS | Encounter Summary ---
Author Organization [facility] [place] [address] Care Team Providers Care Talent Consultant Name Role Phone KvngKatie gordon DUONG Primary Care Provider [phone] Encounter Details Date Type Department Care Team (Late st Contact Info) Description 09/10/2020 Telephone Cardiology at [address] [phone] Gaurav Massey MD [facility] [place] [address] Social History Tobacco Use Types Packs/Day Years [...] on filedocumented in this encounter Care Teams Talent Consultant Relationship Specialty Start Date End Date Katie Tong APRN [address] [place] [address] PCP - General Family Medicine 01/28/20 documented as of this encounter
--- OUTSIDE RECORDS SUMMARY | 2024-02-15 21:23 | XMS_ITS | Encounter Summary ---
Author Organization [facility] Address [address] [place] [address] Care Team Providers Care Care Worker Name Role Phone Unavailable Primary Care Provider Unavailabl e Encounter Details Date Type Department Care Team (Late st Contact Info) Description 04/29/2009 Results Only [facility] [address] [place], [place] [address] Keira Hussein NP [address] [facility],[address] [phone] Social History Tobacco Use Types [...] - GENERAL ORDER SHUKRI Final Result [facility] [address] [place] [address] * CYTOPATHOLOGY (04/29/2009 0:00 EDT) Pathology Report: CYTOPATHOLOGY REPORT ? Reports generated via electronic interface contain original data; ? however they are lacking the format of the original report. ? Caution should be taken when reading/interpreti ng unformatted reports. ? Name: ? MARISEL ANN ? Accession #: ? [id number] ? : ? 1965 (Age: 43) ??F ?Collect Date: ? 04/29/2009 ? Location: ? [facility] ? Receive Date: ? 05/01/2009 ? Provider: ?KEIRA W BESCH FAMILY NURSE PRACTITIONER ? Copy to: ? Specimen/Source: ?Pap Test, [...] [facility] 04/29/2009 05/01/2009 us Keira Hussein FAMILY NURSE PRACTITIONER PATHOLOGY ORDERABLES Final R esult [facility] [address] [place] [address] documented in this encounter Visit Diagnoses Not on filedocumented in this encounter
--- OUTSIDE RECORDS SUMMARY | 2024-02-15 21:23 | XMS_ITS | Clinical Summary ---
Author Organization [facility] Address [address] [place] [address] Care Team Providers Care Software Quality Assurance Analyst Name Role Phone AgustinFatimah CONGRESSIONAL AIDE Unavailable [phone] Katie Tong NP Primary Care Provider [phone] Social History Tobacco Use Types Packs/Day Years [...] (1 - 1-dose 75+ series) 09/18/2038 Insurance [facility] Care Teams Software Quality Assurance Analyst Relationship Specialty Start Date End Date Katie Tong NP [facility] [place] [address] PCP - General 06/13/21 aFtimah Velez NP 03/17/15
--- OUTSIDE RECORDS SUMMARY | 2024-02-15 21:23 | XMS_ITS | Encounter Summary ---
Author Organization [facility] Address [address] [place] [address] Care Team Providers Care Surgical Asst Name Role Phone Unavailable Primary Care Provider Unavailabl e Encounter Details Date Type Department Care Team (Late st Contact Info) Description 01/25/2006 Results Only [facility] [address] [place] [address] Keira Hussein, PLUMBING INSTRUCTOR [address] [place] [phone] Social History Tobacco Use Types Packs/Day [...] ? MARISEL ANN ? Accession #: ? [id number] : ? 1965 (Age: 40) ??F ?Collect Date: ? 01/25/2006 Location: ? [facility] ? Receive Date: ? 01/27/2006 Provider: ?KEIRA HUSSEIN NP Copy to: ? Specimen/Source: ?ThinPrep Pap Test, Cervix/Endocervix, processed on [employer] ThinPrep Imaging System, with manual evaluation Last [...] ORDERABLES Final R esult [facility] [address] [place] [address] documented in this encounter Visit Diagnoses Not on filedocumented in this encounter
--- OUTSIDE RECORDS SUMMARY | 2024-02-15 21:23 | XMS_ITS | Encounter Summary ---
Author Organization [facility] Address [address] [place] [address] Care Team Providers Care Cinder Pitman Name Role Phone Unknown, Provider Primary Care Provider Unava ilable Unknown, Provider MD Unavailable Unavailable Encounter Details Date Type Department Care Team (Latest Contact Info) Description 03/10/2015 17:39 EST - 03/10/2015 23:59 EST Hospital Encounter [address] [address] Unknown, Provider, Discharge Disposition: Home or Self [...] Code Departure Means Destination Home or Self Detention documented in this encounter Plan of Treatment Not on file documented as of this encounter Visit Diagnoses Not on filedocumented in this encounter Care Teams Cinder Pitman Relationship Specialty Start Date End Date Unknown, ProviderMD PCP - General 01/21/15 03/10/15 Unknown, MD Radha 01/21/15 03/16/15 documented as of this encounter
--- OUTSIDE RECORDS SUMMARY | 2024-02-15 21:23 | XMS_ITS | Encounter Summary ---
[place] [address] Care Team Providers Care Top Coater Name Role Phone Katie Tong APRN Primary Care Provider [phone] Encounter Details Date Type Department Care Team [...] on filedocumented in this encounter Care Teams Top Coater Relationship Specialty Start Date End Date Katie Tong APRN [address] [place] [address] PCP - General Family Medicine 01/28/20 documented as of this encounter
--- OUTSIDE RECORDS SUMMARY | 2024-02-15 21:23 | XMS_ITS | Referral Summary ---
Author Organization [facility] Address [address] [place] [address] Care Team Providers Care Psychiatric Secretary Name Role Phone VelezFatimah cintron GEOSCIENCE TECHNICIAN Unavailable [phone] Katie Tong NP Primary Care Provider Social History Tobacco Use Types Packs/Day Years Used Date Smoking Tobacco: Never Assessed Comments Unknown Sex and Gender Information Value Date Recorded Sex Assigned at Not on file Legal Sex Female 18:39 EST Gender Identity Not on file Sexual Orientation Not on file Plan of Treatment Not on file Insurance [facility] Care Teams Psychiatric Secretary Relationship Specialty Start Date End Date [place] [address] PCP - General 06/13/21 Fatimah Velez NP 03/17/15
--- OUTSIDE RECORDS SUMMARY | 2024-02-15 21:23 | XMS_ITS | Clinical Summary ---
Author Organization [facility] [place] [address] Care Team Providers Care [address] Worker Name Role Phone Katie Tong APRN Primary Care Provider [phone] Allergies No known active allergies Medications Medication [...] BMP w/fasting Glucose (01/28/2020 4:27 AM EST) [facility] Signature Glucose Fasting 92 65 - [...] of Diabetes Mellitus, Position Statement from the [place] [employer]. ??Diabetes Care, Volume 33, Supplement [...] CHEMISTRY ORDERABL ES [facility] [place] [address] from Last 3 Months or Most Recently Relevant to Health Maintenance Advance Directives * Attempt Cardiopulmonary Resuscitation - Inpatient (Latest Code Status on File) Date Activated Date Inactivated Comments 01/27/2020 1:43 AM 01/28/2020 2:48 PM Question Answer Comments Code Status decision made by: Patient Care Teams Drive Worker Relationship Specialty Start Date End Date Katie Tong APRN [address] [place] [address] PCP - General Family Medicine 01/28/20
--- OUTSIDE RECORDS SUMMARY | 2024-02-15 21:23 | XMS_ITS | Encounter Summary ---
[place] [address] Care Team Providers Care Post Manager Name Role Phone Ran Katie WATTERS Primary Care Provider [phone] Encounter Details Date Type Department Care Team (Late st Contact Info) Description 09/01/2020 Telephone Cardiology at [address] [phone] Stew Calabrese RN Social History Tobacco Use [...] on filedocumented in this encounter Care Teams Post Manager Relationship Specialty Start Date End Date Katie Tong, DUONG [address] [address] PCP - General Family Medicine 01/28/20 documented as of this encounter
--- OUTSIDE RECORDS SUMMARY | 2024-02-15 21:24 | XMS_ITS | Encounter Summary ---
[place] [address] Care Team Providers Care Inspector Balance Wheel Motion Name Role Phone Ran Katie WATTERS Primary Care Provider [phone] Reason for Referral * Diagnostic Test (Routine) - Closed Specialty Diagnoses / Procedures Referred By Contac t Referred To Contact Cardiology Diagnoses Palpitations Lightheaded 2nd degree AV block Procedures Ziopatch 48 Hrs-15 Days Gaurav Massey MD [facility] [place] [address] [facility] [place] [address] Referral ID Status Reason Start Date Expiration Date V isits Requested Visits Authorized [id number] Closed Specialty Service Requested 06/18/2020 12/19/2020 1 1 Reason for Visit * Diagnostic Test (Routine) - Closed Specialty Diagnoses / Procedures Referred By Contac t Referred To Contact Cardiology Diagnoses Palpitations Lightheaded 2nd degree AV block Procedures Ziopatch 48 Hrs-15 Days Gaurav Massey MD [facility] [place] [address] [facility] [place] [address] Referral ID Status Reason Start Date Expiration Date V isits Requested Visits Authorized [id number] Closed Specialty Service Requested 06/18/2020 12/19/2020 1 1 Encounter Details Date Type Department Care Team (Latest Contact Info) Description 06/29/2020 8:00 AM EDT - 06/29/2020 11:59 PM EDT Hospital Encounter Non-[place] [phone] Gaurav Massey MD [facility] [place] [address] Palpitations; Lightheaded; 2nd degree AV block Discharge [...] Modality Other Narrative 07/31/2020 2:13 PM EDT [facility] ? Zio Patch? Ambulatory Cardiac Event [...] block documented in this encounter Care Teams Inspector Balance Wheel Motion Relationship Specialty Start Date End Date Katie Tong, DUONG [address] [place] [address] PCP - General Family Medicine 01/28/20 documented as of this encounter
--- OUTSIDE RECORDS SUMMARY | 2024-02-15 21:24 | XMS_ITS | Encounter Summary ---
[place] [address] Care Team Providers Care Dietary Supervisor Name Role Phone Ran Katie WATTERS Primary Care Provider [phone] Reason for Referral * Diagnostic Test (Routine) - Closed Specialty Diagnoses / Procedures Referred By Contvelia t Referred To Contact Cardiology Diagnoses Palpitations Lightheaded 2nd degree AV block Procedures Ziopatch 48 Hrs-15 Days Gaurav Massey MD [facility] [place] [address] [facility] [place] [address] Referral ID Status Reason Start Date Expiration Date V isits Requested Visits Authorized [id number] Closed Specialty Service Requested 06/18/2020 12/19/2020 1 1 Encounter Details Date Type Department Care Team (Late st Contact Info) Description 06/17/2020 Orders Only Cardiology at [address] [phone] Gaurav Massey MD [facility] [place] [address] Palpitations; Lightheaded; 2nd degree AV [...] Modality Other Narrative 07/31/2020 2:13 PM EDT [facility] ? Zio Patch? Ambulatory Cardiac Event Monitor [...] block documented in this encounter Care Teams Dietary Supervisor Relationship Specialty Start Date End Date Katie Tong, CABLEMAN [address] [place] [address] PCP - General Family Medicine 01/28/20 documented as of this encounter
--- OUTSIDE RECORDS SUMMARY | 2024-02-15 21:24 | XMS_ITS | Encounter Summary ---
[place] [address] Care Team Providers Care Shipping Support Clerk Name Role Phone RanKatie DUONG Primary Care Provider [phone] Encounter Details Date Type Department Care Team (Late st Contact Info) Description 08/31/2020 Telephone Cardiology at [address] [phone] Ara Escobedo, RN Social History Tobacco Use [...] on filedocumented in this encounter Care Teams Shipping Support Clerk Relationship Specialty Start Date End Date Katie Tong, REEXAMINER [address] [place] [address] PCP - General Family Medicine 01/28/20 documented as of this encounter
--- OUTSIDE RECORDS SUMMARY | 2024-02-15 21:24 | XMS_ITS | Encounter Summary ---
Author Organization Formerly [facility] [place] [address] Care Team Providers Care Paper Sheeter Name Role Phone CleopatraKatie allen DUONG Primary Care Provider [phone] Reason for Visit * Auth/Cert Specialty Diagnoses / Procedures Referred By Contac t Referred To Contact Diagnoses AVB (atrioventricular block) findings consult Procedures EMERGENCY IPI Referral ID Status Reason Start Date Expiration Date Visits Re quested Visits Authorized [id number] 1 1 Encounter Details Date Type Department Care Team (Late st Contact Info) Description 01/27/2020 12:44 AM EST - 01/28/2020 12:42 PM [facility] Hospital Encounter [place] [address] Taran Mir MD [facility] [place] [address] Kevin Diaz MD [facility] [place] [address] AVB (atrioventricular block) Discharge Disposition: Home Social [...] Marisel Vargas Patient Age: 54 y.o. Language: Haitian Race: White Ethnicity: Not nor Admit date: 01/27/2020 Discharge date and time: 01/28/2020 11:14 AM Attending Physician: Kevin Diaz MD Discharge Physician: Kevin Diaz MD Follow-up Recommendations for Providers: 1. Discharge weight 65.2 kg 2. Reduced dose metoprolol in the setting of 2:1 AV block; please monitor; 30 day event recorder still in place Inpatient Provider Contact Information: MD Harleen Cardona PA-C [phone] Discharge Diagnoses (Hospital Problems) and Secondary Diagnoses [...] and PVC's who wastransferred from [facility] due to high grade AVB noted [...] tartrate who was transferred from [facility] due to 2:1 AVB noted on [...] appointments: During 8am-5pm Monday through Monday call [phone] to speak with a nurse in the cardiology clinic All other times call [phone] and ask to speak to the power wheelchair mechanic manager business information. Return to work: Resume usual activities as tolerated. Driving: Resume if driving prior. Follow up Appointments: PCP Katie Tong APRN [phone]; we are waiting for a call back to schedule follow up; if this appointment is not made before you leave, please call and request an appointment for a post hospital check within 7-[address] Cabral at [facility] March 04, 2020 at 9:40 am [...] appointments: During 8am-5pm Monday through Monday call [phone] to speak with a nurse in the cardiology clinic All other times call [phone] and ask to speak to the power wheelchair mechanic manager business information. Return to work: Resume usual activities as tolerated. Driving: Resume if driving prior. Follow up Appointments: PCP Moses Koo PA-C [phone] February 05, 2020 at 10:[address] Cabral at [facility] March 04, 2020 at 9:40 am [...] Progress Note Patient Name: Marisel AdonisavaniRamin Service: MANAGER PLANNING / PA Responsible Attending: Kevin Diaz MD [...] PAC's who was transferred from [facility] due to 2:1 AVB noted on [...] MD, FACP, FACC Section of Cardiovascular Medicine [facility] Catalyst Manufacturing Operatorordnance engineering technician [facility] [employer] [facility] This patient meets or has met medical [...] Progress Note Patient Name: Marisel Vargas Service: MANAGER PLANNING / PA Responsible Attending: Kevin Diaz MD [...] PAC's who was transferred from [facility] due to 2:1 AVB noted on [...] MD, FACP, FACC Section of Cardiovascular Medicine [facility] Catalyst Manufacturing Operatorordnance engineering technician [facility] [employer] [facility] This patient meets or has met medical [...] and PVC's who wastransferred from [facility] due to high grade AVB noted [...] file Gets together: Not on file Attends adventist service: Not on file Active member of [...] B/L, no calf tenderness, swelling, or erythema. Neuro/SUPERVISOR SMOKE CONTROL: AAO x 3, No gross motor deficits. No sensory loss. No gait ataxia. Skin/Integumentary: No rash A&P: Marisel Vargas is a 54 y.o. female w/ hx of hypothyroidism, pernicious anemia, and PVC's who wastransferred from [facility] due to high grade AVB noted [...] PCP: Lee Gupta MD PCP phone number: [phone] Date of Admission: 01/27/2020 ( Hospital Day 0 days ) Attending:Kevin Diaz MD ID: Marisel Vargas is a 54 y.o. female with a history of hypothyroidism, pernicious anemia and PACs who was transferred from [facility] after being found to have high-degree [...] was on 12/13 AM. At [facility], she was noted to be hemodynamically [...] file Gets together: Not on file Attends adventist service: Not on file Active member of [...] on file Social History Narrative Lives in [place] with her . 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 [...] Gas) No results found for: PHART, PO2ART, XXC2CDG, BDH2XYL Microbiology: Microbiology Results (Last 30 days) Procedure Component Value Units Date/Time COVID-19 PCR [[id number]] Collected: 01/27/20202 Lab Status: Final result Specimen: [...] using the Simplexa COVID-19 Direct Assay by [employer] as authorized by the FDA issued Emergency [...] Department of Pathology and Laboratory Medicine at [facility], certified under the Clinical Laboratory Improvement Amendments [...] fact sheets at the following FDA website: https://www.fda.gov/medical-devices/tftpzyaowwb-njgclzv-3437-nmxjj-59-vbhvtkzqr- aeh-lknxtjerotggen-xmctslz-devices/gnfdm-nhyvomtyfot-iewl SARS-CoV-2 Source MANAGER PLANNING Swab Imaging: No results found for this [...] PVCs who was transferred from [facility] after being found to have high-degree [...] #Routine Diet: Daily Healthy Menu Choices/Cardiac diet ([facility]-Diet) Code Status: Attempt Cardiopulmonary Resuscitation - Inpatient Dispo: Pending clinical course Ritika Sin MD Internal Medicine, PGY-2 EP Consults, #[id number] 01/27/20 10:08 AM Associated attestation - Cole [...] positive Lyme titers. Cole Serrano MD, PhD, [facility] Cardiac Electrophysiology documented in this encounter Plan [...] (Bezet) 444 ms MUSE SYSTEM Calculated P Crum 59 degrees MUSE SYSTEM Calculated R Crum 2 degrees MUSE SYSTEM Calculated T Crum -5 degrees MUSE SYSTEM INTERPRETATION Normal sinus rhythm Nonspecific ST abnormality Borderline ECG When compared with ECG of 27-JAN-2020 02:12, Criteria for Septal infarct are no longer Present I personally reviewed the tracing and edited the fellows interpretation Confirmed by fellow Saurabh King ([id number]) on 01/28/2020 10:09:17 AM Confirmed by MD LLOYD, SEBASTIEN ([id number]) on 01/28/2020 12:06:26 PM MUSE SYSTEM 01/28/2020 7:02 AM EST 01/28/2020 12:06 PM EST Kevin Diaz MD ECG ORDERABLES MUSE SYSTEM * Differential, Automated (01/28/2020 4:27 AM EST) Pathologist [facility] Neutrophil % 43.2 % [facility] Neutrophil Absolute 1.76 1.70 - 6.10 x10(3)/[facility] LABORAT[facility] Lymph % 43.4 % [facility] Lymphocytes Abs 1.8 0.9 - 3.2 x10(3)/[facility] Monocyte % 6.6 % [facility] Monocyte Abs 0.3 0.3 - 0.9 x10(3)/[facility] LABOR[facility] Eos % 6.1 % [facility] Eosinophils Abs 0.2 0.0 - 0.4 x10(3)/[facility] Basophil % 0.5 % [facility] Baso Absolute 0.0 0.0 - 0.1 x10(3)/[facility]OR[facility] Immature Gran % 0.20 % [facility] Comment: Immature granulocytes(IG's)percentage and absolute count will include metamyelocytes, myelocytes, and promyelocytes. Blood smears from CBCs yielding IG's will be scanned manually for concordance. If this scan disagrees with the automated IG or if promyelocytes are noted, a manual differential will be performed. Immature Gran Absolute 0.01 0.00 - 0.04 x10(3)/[facility] LABORATORY Blood specimen (specimen) 01/28/2020 4:27 AM EST 01/28/2020 4:32 AM EST Narrative Resulting Agency Comment Spec In Lab Harleen JUNIOR HEMATOLOGY ORDERABLE S [facility] [place] [address] * Hemogram (01/28/2020 4:27 AM EST) White Blood Cell 4.1 4.0 - 9.5 x10(3)/[facility] Red Blood Cell 4.06 4.00 - 5.21 x10(6)/[facility] Hemoglobin 12.3 11.7 - 15.5 gm/dL [facility] Hematocrit 36.6 35.7 - 45.8 % [facility] Mean Cell Volume 90.1 82.6 - 94.4 fL [facility] Mean Cell Hemoglobin 30.3 27.1 - 32.0 pg [facility] Mean Cell Hemoglobin Concentration 33.6 31.7 - 35.0 gm/dL [facility] Platelet 151 145 - 357 x10(3)/[facility] RDW Standard Deviation 43.0 37.0 - 46.0 [facility] LABORATORY RDW coefficient of variation 13.1 11.5 - 14.1 % [facility] Mean Platelet Volume 9.2 7.6 - 12.9 fL [facility] NRBC% auto 0.0 % [facility] NRBC Absolute 0.000 0.000 - 0.000 x10(3)/[facility] Blood specimen (specimen) 01/28/2020 4:27 AM EST 01/28/2020 4:32 AM EST Narrative Resulting Agency Comment Spec In Lab Harleen JUNIOR HEMATOLOGY ORDERABLE S [facility] [address] * (ABNORMAL) BMP w/fasting Glucose (01/28/2020 4:27 AM EST) Glucose Fasting 92 65 - 99 mg/dL [facility] Comment: ?Fasting* Glucose Interpretive Criteria [...] of Diabetes Mellitus, Position Statement from the [place] [employer]. ??Diabetes Care, Volume 33, Supplement 1, Feb 2009 Blood Urea Nitrogen 9 8 - 18 mg/dL [facility] Creatinine 0.63(L) 0.70 - 1.20 mg/dL [facility] Sodium 140 135 - 145 mmol/L [facility] Potassium 4.1 3.5 - 5.0 mmol/L [facility] Comment: Please note: ??Patients with WBC >100,000 may have falsely elevated Potassium levels. ??For accurate Potassium quantification in these patients send serum separator tube (gold top) for subsequent determinations. ??Contact the Clinical Chemistry Laboratory if there are any questions. Chloride 107 98 - 107 mmol/L [facility] Carbon Dioxide 25 22 - 31 mmol/L [facility] Anion Gap 8 5 - 15 mmol/L [facility] Calcium 9.0 8.5 - 10.5 mg/dL [facility] Est Glomerular Filtration Rate 100 >=60 mL/min/1. 73 m?? [facility] Comment: This patient? s estimated [...] Lab Kevin Diaz MD CHEMISTRY ORDERABL ES [facility] [place] [address] * Troponin (01/27/2020 2:25 PM EST) Troponin-T <0.01 0.00 - 0.00 ng/mL [facility] Comment: The 99th percentile for Troponin T is less than 0.01 ng/mL, any detectable cTnT concentration using this assay should be considered elevated. According to the third universal definition of myocardial infarction the following criteria with a clinical presentation consistent with acute myocardial ischemia meets the diagnosis for a myocardial infarction (VA). Detection of a rise and/or fall of cTnT, with at least one value greater than the 99th percentile (> or = 0.01) and with at least one of the following ?? Symptoms of ischemia ?? New or presumed new significant OI-sflgxqj-X wave (ST-T) changes or new left bundle [...] additional sample may be indicated. Reference: Third [place] Definition of Myocardial Infarction. 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 (Age): 1965(54y) Med Rec#: ? [id number] ?Sex: ?F ? Site Loc: ? [facility] ?Ht / Wt: ??158(cm)/67(kg) Pt. Loc: ?Adult Floor ? BSA: ?1.68 Study Date: ?? 01/27/2020 ?Pt. Type: Inpatient Tape: ? Referring: JOSEP Referring: GUSTAVO PRESCOTT Reading: Marky Melgar ??([id number]) Technical Support Representative: Jaleesa Keyes Interpreting Fellow: Pa Osuna ([id number]) Diagnosis: *Unspecified atrioventricular block (I44.30) BP: ? [...] Vmax ?0.74 ? m/sec ? MV deceleration ejjn959.16 ? msec ? MV A-wave Vmax ?0.63 [...] ? Mid-Inferior ?Normal ? Mid-Inferoseptal ?Normal ? Advance-Septal ? Normal ? Advance-Anterior ? Normal ? Advance-Lateral ?Normal ? Advance-Inferior ? Normal ? Advance-Tip ?Normal ? This report has been electronically signed by: Marky Melgar ? 01/27/2020 10:45:42 Images reviewed and interpretation verified [facility] Cardiac Ultrasound Laboratory Procedure Note Marky Melgar MD - 01/27/2020 Procedure: Transthoracic Echocardiogram Patient: SAM BARNARD(Age): 1965(54y) Med Rec#: [id number] Sex: F Site Loc: [facility] Ht / Wt: 158(cm)/67(kg) Pt. Loc: Adult Floor BSA: 1.68 Study Date: 01/27/2020 Pt. Type: Inpatient Tape: Referring: JOSEP Referring: GUSTAVO PRESCOTT Reading: Marky Melgar ([id number]) Technical Support Representative: Jaleesa Keyes Interpreting Fellow: Pa Osuna ([id number]) Diagnosis: *Unspecified atrioventricular block (I44.30) BP: 116/86 [...] MV E-wave Vmax 0.74 m/sec MV deceleration cfel286.16 msec MV A-wave Vmax 0.63 m/sec MV [...] Normal Mid-Posterolateral Normal Mid-Inferior Normal Mid-Inferoseptal Normal Advance-Septal Normal Advance-Anterior Normal Advance-Lateral Normal Advance-Inferior Normal Advance-Tip Normal This report has been electronically signed by: Marky Melgar 01/27/2020 10:45:42 Images reviewed and interpretation verified [facility] Cardiac Ultrasound Laboratory Gustavo Prescott MD ECHO ORDERABLES * Troponin (01/27/2020 8:53 AM EST) Troponin-T <0.01 0.00 - 0.00 ng/mL [facility] Comment: The 99th percentile for Troponin T is less than 0.01 ng/mL, any detectable cTnT concentration using this assay should be considered elevated. According to the third universal definition of myocardial infarction the following criteria with a clinical presentation consistent with acute myocardial ischemia meets the diagnosis for a myocardial infarction (VA). Detection of a rise and/or fall of cTnT, with at least one value greater than the 99th percentile (> or = 0.01) and with at least one of the following ?? Symptoms of ischemia ?? New or presumed new significant PO-vxzsvkw-D wave (ST-T) changes or new left bundle [...] additional sample may be indicated. Reference: Third [place] Definition of Myocardial Infarction. Journal of the [place] College of Cardiology 2012;60:1581-98 Blood specimen (specimen) 01/27/2020 8:53 AM EST 01/27/2020 9:17 AM EST Narrative Resulting Agency Comment Spec In Lab Gustavo Prescott MD CHEMISTRY ORDERABLES [facility] [place] [address] * Differential, Automated (01/27/2020 2:19 AM EST) Neutrophil % 53.9 % [facility] Neutrophil Absolute 2.84 1.70 - 6.10 x10(3)/[facility] LABORATORY Lymph % 34.3 % [facility] Lymphocytes Abs 1.8 0.9 - 3.2 x10(3)/[facility] LABORATORY Monocyte % 6.5 % [facility] Monocyte Abs 0.3 0.3 - 0.9 x10(3)/[facility] LABORATORY Eos % 4.7 % [facility] Eosinophils Abs 0.2 0.0 - 0.4 x10(3)/[facility] LABORAT[facility] Basophil % 0.4 % [facility] Baso Absolute 0.0 0.0 - 0.1 x10(3)/[facility]OR[facility] Immature Gran % 0.20 % [facility] Comment: Immature granulocytes(IG's)percentage and absolute count will include metamyelocytes, myelocytes, and promyelocytes. Blood smears from CBCs yielding IG's will be scanned manually for concordance. If this scan disagrees with the automated IG or if promyelocytes are noted, a manual differential will be performed. Immature Gran Absolute 0.01 0.00 - 0.04 x10(3)/[facility] LAB[facility] Blood specimen (specimen) 01/27/2020 2:19 AM EST 01/27/2020 2:27 AM EST Narrative Resulting Agency Comment Spec In Lab Gustavo Prescott MD HEMATOLOGY ORDERABLE S [facility] [place] [address] * (ABNORMAL) Hemogram (01/27/2020 2:19 AM EST) White Blood Cell 5.3 4.0 - 9.5 x10(3)/mc L [facility] Red Blood Cell 3.70(L) 4.00 - 5.21 x10(6)/mc L [facility] Hemoglobin 11.3(L) 11.7 - 15.5 gm/dL [facility] Hematocrit 33.1(L) 35.7 - 45.8 % [facility] Mean Cell Volume 89.5 82.6 - 94.4 fL [facility] Mean Cell Hemoglobin 30.5 27.1 - 32.0 pg [facility] Mean Cell Hemoglobin Concentration 34.1 31.7 - 35.0 gm/dL [facility] Platelet 163 145 - 357 x10(3)/mc L [facility] RDW Standard Deviation 42.3 37.0 - 46.0 fL [facility] RDW coefficient of variation 12.9 11.5 - 14.1 % [facility] Mean Platelet Volume 9.3 7.6 - 12.9 fL [facility] NRBC% auto 0.0 % [facility] NRBC Absolute 0.000 0.000 - 0.000 x10(3)/mc L [facility] Blood specimen (specimen) 01/27/2020 2:19 AM EST 01/27/2020 2:27 AM EST Narrative Resulting Agency Comment Spec In Lab Gustavo Prescott MD HEMATOLOGY ORDERABLE S [facility] [place] [address] * Lyme IgG & IgM Antibody (01/27/2020 2:19 AM EST) Lyme Antibody Neg Neg [facility] Blood specimen (specimen) 01/27/2020 2:19 AM EST 01/27/2020 7:37 AM EST Narrative Resulting Agency Comment Spec In Lab Gustavo Prescott MD IMMUNOLOGY ORDERABLE S Performing Organization Address [facility] Co de Phone Number [facility] [place] [address] * Troponin (01/27/2020 2:19 AM EST) Troponin-T <0.01 0.00 - 0.00 ng/mL [facility] Comment: The 99th percentile for Troponin T is less than 0.01 ng/mL, any detectable cTnT concentration using this assay should be considered elevated. According to the third universal definition of myocardial infarction the following criteria with a clinical presentation consistent with acute myocardial ischemia meets the diagnosis for a myocardial infarction (VA). Detection of a rise and/or fall of cTnT, with at least one value greater than the 99th percentile (> or = 0.01) and with at least one of the following ?? Symptoms of ischemia ?? New or presumed new significant QD-ndttysu-O wave (ST-T) changes or new left bundle [...] additional sample may be indicated. Reference: Third [place] Definition of Myocardial Infarction. Journal of the [place] College [employer] Cardiology 2012;60:1581-98 Blood specimen (specimen) 01/27/2020 2:19 AM EST 01/27/2020 2:27 AM EST Narrative Resulting Agency Comment Spec In Lab Gustavo Prescott MD CHEMISTRY ORDERABLES Performing Organization Address City/[facility]/ZIP Co de Phone Number [facility] [place] [address] * Hemoglobin A1c (01/27/2020 2:19 AM EST) Hemoglobin A1c 5.2 4.3 - 5.6 % [facility] Comment: Reference Range: 4.3 - [...] Mellitus, Diabetes Care 2013; 36: Suppl. 1, L07-57 Estimated Average Glucose 103 mg/dL [facility] Comment: eAG equivalents for HbA1c [...] into estimated average glucose values. ??Diabetes Care 2008:31(8):6712-9535. Blood specimen (specimen) 01/27/2020 2:19 AM EST 01/27/2020 2:27 AM EST Narrative Resulting Agency Comment Spec In Lab Gustavo Prescott MD CHEMISTRY ORDERABLES [facility] [place] [address] * Lipid Panel (Reflex Direct LDL) (01/27/2020 2:19 AM EST) Cholesterol, Total 125 mg/dL [facility] Comment: Lower Risk: <200 mg/dL Average Risk: 200-239 mg/dL Higher Risk: >ly=295 mg/dL Triglyceride 52 mg/dL [facility] Comment: Average Risk/Lower Risk: <150 mg/dL Borderline High Risk: 150-199 mg/dL High Risk: 200-499 mg/dL Very High Risk: >eo=759 mg/dL HDL Cholesterol 68 mg/dL [facility] Comment: Males: ?? Higher Risk: <40 mg/dL Females: ?? HIgher Risk: <50 mg/dL LDL Cholesterol 47 mg/dL [facility] Comment: Lowest Risk: <100 mg/dL Lower Risk: 100-129 mg/dL Borderline High Risk: 130-159 mg/dL High Risk: 160-189 mg/dL Very High Risk: >bn=452 mg/dL Cholesterol/HDL Ratio 1.8 ratio [facility] Lipid Interpretation See Note [facility] Comment: Lipid management should be guided by a patient? s ASCVD risk, goals and preferences. ACC/AHA Guidelines recommend high intensity statin if clinical ASCVD or LDL greater than or equal to 190 mg/dL. http://tinyurl.com/JVB-JHK-Aircrpuxy Adults aged 40-75 with LDL 70-189 mg/dL should have their 10 year ASCVD risk estimated with the ACC/AHA ASCVD risk utilities estimator and drafter http://tools.acc.org/DERCM-Aqjh-Pnmhyrioq/ Statin should be discussed if risk greater [...] Prescott MD CHEMISTRY ORDERABLES Performing Organization Address [facility] de Phone Number [facility] [place] [address] * APTT (01/27/2020 2:19 AM EST) Partial Thromboplastin Time 30 25 - 37 sec [facility] Comment: The PTT is NOT appropriate for heparin monitoring. Use the Anti-Xa level for heparin monitoring (HEP UFH) or LMWH monitoring (HEP LMW). A PTT less than 37 seconds generally indicates adequate hemostasis. Blood specimen (specimen) 01/27/2020 2:19 AM EST 01/27/2020 2:27 AM EST Narrative Resulting Agency Comment Spec In Lab Gustavo Prescott MD HEMATOLOGY ORDERABLE S Performing Organization Address [facility] de Phone Number [facility] [place] [address] * Prothrombin Time (01/27/2020 2:19 AM EST) Prothrombin Time 11.6 9.4 - 12.5 sec [facility] International Normalization Ratio 1.0 [facility] Comment: An INR <2.0 indicates [...] MD HEMATOLOGY ORDERABLE S Performing Organization Address City/[facility]/ZIP Co de Phone Number [facility] [address] * (ABNORMAL) Hepatic Function Panel (01/27/2020 2:19 AM EST) Pathologist [facility] Protein, Total 6.0(L) 6.1 - 8.0 gm/dL [facility] Albumin 3.9 3.2 - 5.2 gm/dL [facility] Aspartate Aminotransferase 16 0 - 30 unit/L [facility] Alanine Aminotransferase 15 0 - 30 unit/L [facility] Alkaline Phosphatase 65 35 - 105 unit/L [facility] Bilirubin, Total 0.2 0.2 - 1.3 mg/dL [facility] Bilirubin, Direct 0.1 0.0 - 0.3 mg/dL [facility] Blood specimen (specimen) 01/27/2020 2:19 AM EST 01/27/2020 2:27 AM EST Narrative Resulting Agency Comment Spec In Lab Gustavo Prescott MD CHEMISTRY ORDERABLES Performing Organization Address [facility] Co de Phone Number [facility] [place] [address] * (ABNORMAL) pro-Brain Natriuretic Peptide (01/27/2020 2:19 AM EST) [facility] NT-proBNP 150(H) <=125 pg/mL [facility] Blood specimen (specimen) 01/27/2020 2:19 AM EST 01/27/2020 2:27 AM EST Narrative Resulting Agency Comment Spec In Lab Gustavo Prescott MD CHEMISTRY ORDERABLES Performing Organization Address [facility] Co de Phone Number [facility] [place] [address] * TSH (01/27/2020 2:19 AM EST) [facility] Thyroid Stimulating Hormone 1.21 0.27 - 4.20 mcIU/mL [facility] Blood specimen (specimen) 01/27/2020 2:19 AM EST 01/27/2020 2:27 AM EST Narrative Resulting Agency Comment Spec In Lab Gustavo Prescott MD CHEMISTRY ORDERABLES Performing Organization Address [facility] de Phone Number [facility] [place] [address] * Phosphorus (01/27/2020 2:19 AM EST) Phosphorus 3.6 2.5 - 4.5 mg/dL [facility] Blood specimen (specimen) 01/27/2020 2:19 AM EST 01/27/2020 2:27 AM EST Narrative Resulting Agency Comment Spec In Lab Gustavo Prescott MD CHEMISTRY ORDERABLES Performing Organization Address [facility] Phone Number [facility] [place] [address] * Magnesium (01/27/2020 2:19 AM EST) Magnesium 0.81 0.69 - 1.07 mmol/L [facility] Blood specimen (specimen) 01/27/2020 2:19 AM EST 01/27/2020 2:27 AM EST Narrative Resulting Agency Comment Spec In Lab Gustavo Prescott MD CHEMISTRY ORDERABLES Performing Organization Address [facility] Phone Number [facility] [place] [address] * (ABNORMAL) Basic Metabolic Panel (non-fasting) (01/27/2020 2:19 AM EST) Glucose 99 65 - 199 mg/dL [facility] Comment:Diabetes: >=200 mg/d L plus symptoms Blood Urea Nitrogen 14 8 - 18 mg/dL [facility] Creatinine 0.65(L) 0.70 - 1.20 mg/dL [facility] Sodium 142 135 - 145 mmol/L [facility] Potassium 3.7 3.5 - 5.0 mmol/L [facility] Comment: Please note: ??Patients with WBC >100,000 may have falsely elevated Potassium levels. ??For accurate Potassium quantification in these patients send serum separator tube (gold top) for subsequent determinations. ??Contact the Clinical Chemistry Laboratory if there are any questions. Chloride 107 98 - 107 mmol/L [facility] Carbon Dioxide 25 22 - 31 mmol/L [facility] Anion Gap 10 5 - 15 mmol/L [facility] Calcium 8.8 8.5 - 10.5 mg/dL [facility] Est Glomerular Filtration Rate 99 >=60 mL/min/1. 73 m?? [facility] Comment: This patient? s estimated [...] In Lab Gustavo Prescott MD CHEMISTRY ORDERABLES [facility] [place] [address] * EKG 12 Lead (01/27/2020 2:12 AM EST) Ventricular rate 72 BPM MUSE SYSTEM Atrial Rate 72 BPM MUSE SYSTEM P-R Interval 144 ms MUSE SYSTEM QRS Duration 76 ms MUSE SYSTEM Q-T Interval 424 ms MUSE SYSTEM QTC Calculated (Bezet) 464 ms MUSE SYSTEM Calculated P Crum 59 degrees MUSE SYSTEM Calculated R Crum 2 degrees MUSE SYSTEM Calculated T Crum -6 degrees MUSE SYSTEM INTERPRETATION Normal sinus [...] SARS-CoV-2 RNA (Rapid) Not Detected Not Detected [facility] Comment: This result should be [...] using the Simplexa COVID-19 Direct Assay by [employer] as authorized by the FDA issued Emergency [...] Department of Pathology and Laboratory Medicine at [facility], certified under the Clinical Laboratory Improvement Amendments [...] fact sheets at the following FDA website: https://www.fda.gov/medical-devices/svhapoyfwin-ocyqpyo-0215-zsqpy-76-afcvgutas- use-a usnofkmdtlheu-wenuaqe-pnaykcr/ubjtr-kstvmznfyvv-idld SARS-CoV-2 Source MANAGER PLANNING Swab [facility] Nasopharyngeal swab (specimen) 01/27/2020 2:03 AM EST 01/27/2020 3:03 AM EST Comment:Symptoms->Surveillan ce Narrative Resulting Agency Comment Spec In Lab Gustavo Prescott MD MICROBIOLOGY - GENER AL ORDERABLES [facility] [place] [address] documented in this encounter Visit Diagnoses Diagnosis [...] Routine documented in this encounter Care Teams Paper Sheeter Relationship Specialty Start Date End Date Katie Tong APRN [address] [place] [address] PCP - General Family Medicine 01/28/20 documented as of this encounter
--- OUTSIDE RECORDS SUMMARY | 2024-02-15 21:24 | XMS_ITS | Encounter Summary ---
[place] [address] Care Team Providers Care Drying Rack Changer Name Role Phone RanKatie DUONG Primary Care Provider [phone] Encounter Details Date Type Department Care Team (Late st Contact Info) Description 06/23/2020 Telephone Cardiology at [address] [phone] Ara Escobedo, RN Social History [...] faxed to [facility] [place] @ [phone] with a confirmation of successful transmission. * Telephone Encounter - Aar Escobedo RN - 06/23/2020 4:42 PM EDT RTC to Mrs Su regarding her message to let her know that Dr Massey has written a note, and requested that it be sent to [employer] I spoke with her insurance company. Would you please be able to FAX my note from today, regarding Ms. Su's frequency of symptoms, to [phone]. If you can please reference her denied authorizatoin number, which I believe is: [phone]. thank you [phone] is the number, I think documented in this encounter Plan of Treatment Not on file documented as of this encounter Visit Diagnoses Not on filedocumented in this encounter Care Teams Drying Rack Changer Relationship Specialty Start Date End Date Katie Tong APRN [address] [place] [address] PCP - General Family Medicine 01/28/20 documented as of this encounter
--- OUTSIDE RECORDS SUMMARY | 2024-02-15 21:24 | XMS_ITS | Encounter Summary ---
[place] [address] Care Team Providers Care Scroll Assembler Name Role Phone Katie Tong APRN Primary Care Provider [phone] Encounter Details Date Type Department Care Team (Late st Contact Info) Description 08/19/2020 Telephone Cardiology at [address] [phone] Ariana Davila, KAILEY Social History Tobacco Use [...] on filedocumented in this encounter Care Teams Scroll Assembler Relationship Specialty Start Date End Date Katie Tong APRN [facility] [address] [facility] [address] PCP - General Family Medicine 01/28/20 documented as of this encounter
--- OUTSIDE RECORDS SUMMARY | 2024-02-15 21:24 | XMS_ITS | Encounter Summary ---
Author Organization [facility] [place] [address] Care Team Providers Care Veterinary Technologist Name Role Phone Lee Gupta MD Primary Care Provider [phone] Encounter Details Date Type Department Care Team (Late st Contact Info) Description 01/26/2020 Telephone Cardiology at [address] [phone] Saurabh King MD Social History Tobacco Use [...] original note were not included. 01/26/2020 Tasneem uS Initial Contact Date: 01/26/2020 Initial contact time: 9:38 PM Referring Provider: Dr. Sanders Patient Location: [facility] Presenting Symptoms per OSH: 54F with h/o palpitations who presented with lightheadedness x6 months. Was seen by her primary embroidery cutter Dr. Cabral at [facility] who ordered a tress test and 30 [...] with any changes in the patient condition. aSurabh King PGY4 Cardiology [id number] documented in this encounter Plan of Treatment Not on file documented as of this encounter Visit Diagnoses Not on filedocumented in this encounter Care Teams Veterinary Technologist Relationship Specialty Start Date End Date Lee Gupta MD PCP - General 01/05/10 01/27/20 documented as of this encounter
--- OUTSIDE RECORDS SUMMARY | 2024-02-15 21:24 | XMS_ITS | Encounter Summary ---
Author Organization [facility] Address [facility] [place] [address] Care Team Providers Care Loader Operator Supervisor Name Role Phone CelsoKatie talamantes DUONG Primary Care Provider [phone] Encounter Details Date Type Department Care Team (Late st Contact Info) Description 08/03/2020 Telephone Cardiology at [address] [phone] Gaurav Massey MD [facility] [address] Social History Tobacco Use Types Packs/Day Years [...] on filedocumented in this encounter Care Teams Loader Operator Supervisor Relationship Specialty Start Date End Date Katie Tong, CUSTOMER ASSISTANT [address] [place] [address] PCP - General Family Medicine 01/28/20 documented as of this encounter
--- OUTSIDE RECORDS SUMMARY | 2024-02-15 21:24 | XMS_ITS | Encounter Summary ---
Author Organization [facility] Address [facility] [place] [address] Care Team Providers Care Uc Architect Name Role Phone RanKatie DUONG Primary Care Provider [phone] Encounter Details Date Type Department Care Team (Late st Contact Info) Description 06/22/2020 Telephone Cardiology at [address] [phone] Gaurav Massey MD [facility] [place] [address] Social History Tobacco Use Types Packs/Day Years [...] on filedocumented in this encounter Care Teams Uc Architect Relationship Specialty Start Date End Date Katie Tong, LEATHER SHAVER [address] [place] [address] PCP - General Family Medicine 01/28/20 documented as of this encounter
--- OUTSIDE RECORDS SUMMARY | 2024-02-15 21:24 | XMS_ITS | Encounter Summary ---
[place] [address] Care Team Providers Care Assembly Cleaner Name Role Phone Katie Tong APRN Primary Care Provider [phone] Encounter Details Date Type Department Care Team (Late st Contact Info) Description 01/26/2020 External Results [place] [phone] Social History Tobacco Use Types Packs/Day Years [...] filedocumented in this encounter Care Teams Assembly Cleaner Relationship Specialty Start Date End Date Katie Tong APRN [address] [place] [address] PCP - General Family Medicine 01/28/20 documented as of this encounter
== END 2024-02-15 21:20 | disposition home or self-care (01) ==
LOC: NCHCN 21:19
PROVIDERS: Visit Provider Physician Assistant
DX: R30.0 Dysuria (principal); B96.29 Other Escherichia coli [E. coli] as the cause of diseases classified elsewhere; R82.89 Other abnormal findings on cytological and histological examination of urine
CPT/HCPCS: 87077; 87086; 87186

== ENCOUNTER 2024-05-17 14:40 | Outpatient (REF) | payer BC, SELFPAY ==
[2024-05-17 22:00] LABS: Calculated LDL 117 mg/dL (<100); Cholesterol 218 mg/dL (<200); HDL Cholesterol 77 mg/dL (>or=50); TSH 3.32 uIU/mL (0.36-3.74); Triglyceride 123 mg/dL (<150)
[2024-05-17 22:22] LABS: FREE T4 1.07 ng/dL (0.76-1.46)
[2024-05-20 11:17] LABS: HIV-1/2 Ag & Ab Screen Negative (Negative)
[2024-05-20 11:19] LABS: Hepatitis C Ab w Rflx HCV PCR Negative (Negative)
== END 2024-05-17 14:41 | disposition home or self-care (01) ==
LOC: NCHCN 14:40
PROVIDERS: PCP Family Medicine; Visit Provider Family Medicine
DX: E03.9 Hypothyroidism, unspecified (principal); Z13.220 Encounter for screening for lipoid disorders; Z11.4 Encounter for screening for human immunodeficiency virus [HIV]; Z11.59 Encounter for screening for other viral diseases
CPT/HCPCS: 80061; 86803; 87389; 84439; 84443

== ENCOUNTER 2024-06-26 12:32 | Outpatient (REF) | payer BC, SELFPAY ==
--- NOTE | 2024-06-26 11:15 | PAPFT_PTH ---
PATIENT: Tasneem Galeana LOC: [facility]#:[id number] AGE/SX: 58/F ROOM: RE06/26/[address]: Lacy Piña : 1965 BED: DIS: 06/26/2024 SPEC #: [id number] RECD: 06/27/24 12:54 STATUS: GAYATHRI RERandall #: [id number] KEVIN: 06/26/24 11:[address]: Lacy Piña DEPT: [facility] Cytology RECD BY: Rowan Laura Tissues: 1 - CX/ENDOCX FOR PAP SMEARS Procedures: PAP THIN PREP/UVM Screening HPV DNA PROBE Comments: [id number] (HPV 16 & 18/45)
== END 2024-06-26 12:33 | disposition home or self-care (01) ==
LOC: NCHCN 12:32
PROVIDERS: PCP Family Medicine; Visit Provider Family Medicine
DX: Z11.51 Encounter for screening for human papillomavirus (HPV) (principal); Z01.419 Encounter for gynecological examination (general) (routine) without abnormal findings
CPT/HCPCS: 88142; 87624

== ENCOUNTER 2024-07-02 01:05 | Outpatient (CLI) | payer BC, SELFPAY ==
--- NOTE | 2024-07-02 | DI.MAMMO_ITS ---
Exam(s) MAMMO SCREENING EXAM: MAMMO SCREENING CLINICAL HISTORY: SCREENING MAMMO Z12.39 TECHNIQUE: Mammograms were interpreted according to the usual protocol including computer analysis w [employer] CAD system, tomosynthesis and C-view imaging. COMPARISON: 2016 through 2022. FINDINGS: The breasts are composed of scattered fibroglandular densities, Breast Density category B. No suspicious masses or suspicious microcalcifications are seen. No skin thickening or abnormal axillary lymph nodes are seen. There has been no significant change from prior exams. IMPRESSION: BI-RADS Category 1, Negative mammogram Yearly screening mammography is recommended. Breast Density - Category B, scattered fibroglandular densities. Breast density Category C or D implies that the patient has dense breast tissue. Dense breast tissue can make it harder to find cancer on a mammogram. Dense breast tissue is also associated with an incr eased risk of breast cancer. This information about the result of the mammogram report was provided to the patient to raise their awareness. Use this report when you speak with the patient about their risks for breast cancer, which includes their family history. At that time, you may recommend additional screening tests (Ultrasoun d or MRI) as these tests may add significant information. A negative radiographic report should not delay biopsy if a dominant or clinically suspicious mass is present. Up to ten percent of cancers are not identified on mammography. A negative report may reinforce clinical impression. Adenosis and dense breasts may obscure an underlying neoplasm. False positive reports average 6 to 10%. Patient will receive a letter notifying them of these results.
== END 2024-07-02 01:25 ==
LOC: DI 01:05
PROVIDERS: PCP Family Medicine; Visit Provider Family Medicine
DX: Z12.31 Encounter for screening mammogram for malignant neoplasm of breast (principal); R92.323 Mammographic fibroglandular density, bilateral breasts
CPT/HCPCS: 77063; 77067

== ENCOUNTER 2024-11-28 17:55 | Emergency (ER) | payer BC, SELFPAY ==
[2024-11-28 18:02] VITALS: BP 140/88; PULSE 67; RESP 16; TEMP 36.6; O2SAT 98
--- NOTE | 2024-11-28 18:20 | W.ED.GENAD ---
Discharge Plan Disposition Patient Disposition: Home Condition: Stable Discharge Details Clinical Impression: Lumbar back pain Primary Care Provider: Lacy Piña ED Provider: Sanchez Abdullahi Home Meds and New Rx's Prescriptions: New ketorolac 10 mg tablet 10 mg PO QID 5 Days Qty: 20 0RF Rx Instructions: maximum total duration of 5 days from all oral, intranasal, or parenteral formulations methocarbamol 750 mg tablet 750 mg PO QID 7 Days Qty: 28 0RF Continued cyanocobalamin (vitamin B-12) 1,000 mcg/mL kit 100 mcg subcut QMONTH metoprolol succinate 50 mg tablet extended release 24 hr 25 mg PO DAILY levothyroxine [Synthroid] 112 mcg tablet 75 mcg PO DAILY ibuprofen 600 MG tablet 600 mg PO Q6H PRN (Reason: Pain) Qty: 20 0RF cholecalciferol (vitamin D3) [Vitamin D3] 25 mcg (1,000 unit) Tablet 1,000 mcg PO DAILY Discharge Instructions Instructions: Ketorolac (Systemic), Methocarbamol, Low Back Pain ED Additional Instructions: You were seen in the emergency department for your low back pain, we discussed possible imaging but an outpatient MRI would be the most ideal. Please use therapeutic dosing of Tylenol (acetamenophen) & Advil (ibuprofen) in an alternating fashion as follows: Take 1000mg of Tylenol every 6 hours without missing doses- that is 4 times per day. Take the prescribed ketorolac long-term in between Tylenol doses for the first 5 days then switch to Advil in its place. [place] in between the Tylenol dosings, take 400-600mg of Advil also on a 6 hour schedule, that is also 4 times per day. The daily maximum dosing of Tylenol is 4000mg, and the daily maximum dosing of Advil is 2400mg. This is safe to do for weeks. Please note that some common cold medications & prescription pain medications may contain acetamenophen and you need to read OTC drug labels and factor that in to maximum daily dosings. Apply rrwc-exk-mnzwlxh lidocaine patch to the area of pain each night for 12 hours, purchase zljv-tto-ewrtpqo Voltaren or topical diclofenac gel to apply 2-3 times a day to areas of pain during the day. Use the prescribed methocarbamol for skeletal muscle relaxation, apply gentle heat to the area, follow-up with the physical therapy referral for lower back exercises. Please return to the emergency department for any urinary retention, weakness of the legs, bowel incontinence or any other emergent concerns Stand Alone Forms: Physical Therapy Referral Referrals: Lacy Piña MD [Primary Care Provider, Medicine] Discharge Data Discharge Date/Time-TO BE ENTERED AT DEPARTURE: 11/28/24 19:20 HPI General Date/Time Provider Initiated Documentation: 11/28/24 18:11. HPI Narrative: 59 year-old female presents to ED today by POV/ambulating with a chief complaint of lumbar back pain this morning as she was throwing some papers away- felt a pop. Quality described as very sharp back pain, no radiation to urinary retention, bowel incontinence, fever, weakness of legs. Severity is described as severe. Palliating factors include OTC analgesics without relief. Provoking factors include sitting has made it worse. Patient not anticoagulated. Related Data Home Medications ?Medication ?Instructions ?Recorded ?Confirmed ibuprofen 600 mg tablet 600 mg PO Q6H PRN Pain #20 tabs 05/12/17 11/28/24 cyanocobalamin (vitamin B-12) 100 mcg subcut QMONTH 12/26/19 11/28/24 1,000 mcg/mL injection kit cholecalciferol (vitamin D3) 25 1,000 mcg PO DAILY 05/06/21 11/28/24 mcg (1,000 unit) tablet (Vitamin D3) levothyroxine 112 mcg tablet 75 mcg PO DAILY 10/02/23 11/28/24 (Synthroid) metoprolol succinate 50 mg 25 mg PO DAILY 10/02/23 11/28/24 tablet,extended release 24 hr ketorolac 10 mg tablet 10 mg PO QID 5 days #20 tabs 11/28/24 methocarbamol 750 mg tablet 750 mg PO QID 7 days #28 tabs 11/28/24 Previous Rx's ?Medication ?Instructions ?Recorded ibuprofen 600 mg tablet 600 mg PO Q6H PRN Pain #20 tabs 05/12/17 ketorolac 10 mg tablet 10 mg PO QID 5 days #20 tabs 11/28/24 methocarbamol 750 mg tablet 750 mg PO QID 7 days #28 tabs 11/28/24 Allergies Allergy/AdvReac Type Severity Reaction Status Date / Time cyclobenzaprine Allergy Other (See Verified 11/28/24 18:06 Comment) basil AdvReac Severe Diarrhea Verified 11/28/24 18:06 hydromorphone (From Dilaudid) AdvReac Intermediate anxiety/cri Verified 11/28/24 18:06 es General Stated Complaint: Nk/Back Pain NANDINI: 3 Review of Systems All systems reviewed & are unremarkable except as noted in HPI and below Exam Narrative Exam Narrative: GENERAL APPEARANCE: Well-nourished, non-toxic, awake and alert, atraumatic, moderate acute distress. SKIN: Warm, pink, dry, intact, without rashes/lesions/ulcerations. HEAD: Normocephalic, atraumatic, normal hair distribution for gender/age. EYES: Normal conjunctiva, no exudates on lids/lashes. ENT: Nares patent, no circumoral cyanosis, no facial swelling NECK: Supple, trachea midline, painless cervical ROM. LUNGS/CHEST: Non-labored respirations, normal A/P diameter, symmetrical expansion, no chest wall deformity HEART (CV/PV): No peripheral edema, no JVD. ABDOMEN: Soft, non-distended, no guarding. MSK: Normal ROM, no swelling/deformity to bilateral UEs or LEs, moving all extremities without weakness, no cyanosis, spine midline with diffuse lumbar paraspinal tenderness, normal curvature. NEURO: Mental Status AAOx4 - alert to person, place, time, events No facial droop, no forehead involvement. Motor: No focal weakness - strength 5/5 in bilateral UEs and LEs, proximal and distal, symmetric. Sensory: sensation intact to light touch globally. Gait normal: patient ambulated without ataxia into ED room. PSYCH: euthymic, cooperative, pleasant, appropriate speech Course Vital Signs Vital signs: Vital Signs Temperature 36.6 C 11/28/24 18:02 Pulse 67 11/28/24 18:02 Respiratory Rate 16 11/28/24 18:02 Blood Pressure 140/88 11/28/24 18:02 Pulse Oximetry 98 11/28/24 18:02 Temperature 36.6 C 11/28/24 18:02 Temperature Source Temporal Artery Scan 11/28/24 18:02 Pulse 67 11/28/24 18:02 Respiratory Rate 16 11/28/24 18:02 Blood Pressure 140/88 11/28/24 18:02 Blood Pressure Position Sitting 11/28/24 18:02 Pulse Oximetry 98 11/28/24 18:02 Oxygen Delivery Method Room Air 11/28/24 18:02 Oxygen Flow Rate 0 11/28/24 18:02 Pain Level 8 11/28/24 18:02 Medical Decision Making This dictation utilizes eiwow-xr-dawm dictation software and may contain unedited grammatical errors. 59 year-old female presents to ED today by POV/ambulating with a chief complaint of lumbar back pain this morning as she was throwing some papers away- felt a pop. Quality described as very sharp back pain, no radiation to urinary retention, bowel incontinence, fever, weakness of legs. Severity is described as severe. Palliating factors include OTC analgesics without relief. Provoking factors include sitting has made it worse. Patients' medical history: Noncontributory. Family and social history: Noncontributory. Pertinent exam findings / vital signs include diffuse lumbar paraspinal tenderness and palpable muscle tension, neurovascular intact bilateral lower extremities with normal strength and sensation. Differential / pathologies of concern include disc herniation, lumbar radiculopathy. Diagnostic studies of: -Discussed imaging options with the patient glad to CT them tonight but did encourage conservative trial of relief with medications prior to radiative studies and possibly an outpatient MRI patient agreed with this plan. Interventions of: -Rx for Toradol and methocarbamol and counseled on aggressive treatment with Tylenol, lidocaine patches, topical Voltaren, gentle heat and massage and physical therapy visits versus gentle massage therapy. Referral given for PT visits ED Course/Assessment/Plan: 59-year-old female presents with severe low back pain after performing some chores this morning, she likely has a partial disc herniation and has no sign of neurovascular compromise or myelopathy of lower extremities, counseled on aggressive treatment for a few days and if no improvement in 2 to 3 days she could return for CT but I did encourage that an MRI would be a better study as it is more ideal to visualize the discs and does not give any radiation, the patient agreed with this plan and will trial conservative management at home, strict return criteria for any weakness of the legs or bowel or urinary changes. Findings not consistent with myelopathy, cauda equina, spinal epidural abscess, fracture or trauma. Disposition of lumbar back pain. Patient verbalized understanding of the plan and return to ED criteria and engaged in shared decision making. Medical Records Medical records reviewed: Yes I reviewed the patient's medical records. [facility] All Active Problems (Updated 11/28/24 @ 18:54 by VERNON [place]) Lumbar back pain (Acute) Essential tremor (Acute) Lightheadedness (Acute) AV block, 2nd degree (Acute) Syncope (Chronic) Medical History Ganglion cyst of both wrists (03/20/15) Metatarsalgia of left foot Urinary incontinence Headache Actinic keratosis Pruritus of vagina Megaloblastic anemia Vitamin D deficiency Hypothyroid Pernicious anemia Surgical History Hx of colonoscopy History of surgical removal of ganglion cyst History of carpal tunnel surgery section 1988 and 1991 Arthroplasty of knee right, at [facility] 2012? Family History Father Family history of hypercholesterolemia Family hx of hypertension Family history of acute medical disorder Family history of pancreatic cancer Family history of heart failure Mother Family hx of melanoma Fibroid tumor Sister Family history of ovarian cancer Social History Smoking/Tobacco Use Status: Former Tobacco Use Quit Date: 02/13/83 Smoking risk assessment performed?: Yes Alcohol Intake: current Alcohol Intake frequency: holidays/special occasions only Alcohol type: beer Drug use: Never Substance use type: does not use Household members: spouse Number of Children: 2 Do you feel safe at home: Yes Do you feel safe in your relationship?: Yes
[2024-11-28] MEDS: Dexamethasone 10 MG/ML VIAL IM (19:01)
[2024-11-28] MEDS: Ketorolac 30 MG/ML VIAL IM (19:03)
[2024-11-28] MEDS: Lidocaine 5% Patch 1 PATCH TP (19:04)
[2024-11-28] MEDS: Acetaminophen 500 MG TAB 1000 MG PO (19:05)
[2024-11-28] MEDS: LORazepam 0.5 MG TAB PO (19:12)
[2024-11-28 19:18] VITALS: RESP 18
== END 2024-11-28 19:20 | disposition home or self-care (01) ==
LOC: ER 19:02
PROVIDERS: Emergency Provider Physician Assistant; PCP Family Medicine
DX: M54.50 Low back pain, unspecified (principal)
CPT/HCPCS: 96372; 99284; 99283; J1100; J1885